=== PATIENT | female | born 1955 | race Caucasian/White ===

== ENCOUNTER 2019-09-04 10:55 | Emergency (ER) | payer MEDICARE, OTHER, SELFPAY ==
[2019-09-04 11:01] VITALS: PULSE 59; RESP 18; TEMP 36.2; O2SAT 100; BMI 44.6
--- NOTE | 2019-09-04 11:06 | DI.RAD.S_ITS ---
PROCEDURE: XR CHEST 1V INDICATIONS: chest pain TECHNIQUE: One view of the chest was acquired. COMPARISON: None. FINDINGS: Surgical changes and devices: None. Lungs and pleura: Lungs are clear. No pleural effusions or pneumothorax. Mediastinum: The cardiac contours are within normal limits. The aorta demonstrates calcification and tortuosity. Bones and chest wall: Age-appropriate bony degenerative changes are seen. No suspicious bony lesions. Overlying soft tissues appear unremarkable. IMPRESSION: Unremarkable portable chest study for age. Dictated by: Lane Cavazos M.D. on 09/04/2019 at 10:51 Approved by: Lane Cavazos M.D. on 09/04/2019 at 10:52
--- NOTE | 2019-09-04 11:34 | PC.NURSE ---
patient arrived amblitory POV to the ED today with a chief complaint of left sided chest pain that she awoke with. She states in gets worse when taking deep breaths. Patient is speaking in short choppy sentences. Provider aware
[2019-09-04 11:36] LABS: Add Manual Diff / Slide Review NO; Basophils Absolute Auto 0 /uL (0-100); Basophils Percent Auto 0.5 % (0-2); Eosinophils Absolute Auto 100 /uL (0-450); Eosinophils Percent Auto 1.1 % (2-4); Hematocrit 40.8 % (36-46); Hemoglobin 13.7 g/dL (12.0-16.0); Lymphocytes Absolute Auto 1600 /uL (1100-4500); Lymphocytes Percent Auto 26.7 % (25-40); Mean Corpuscular HGB Conc 33.6 % (30-36); Mean Corpuscular Hemoglobin 29.8 PG (26-34); Mean Corpuscular Volume 88.7 fL (80-100); Monocytes Absolute Auto 300 /uL (0-900); Monocytes Percent Auto 4.6 % (3-14); Neutrophils Absolute Auto 3900 /uL (1500-7000); Neutrophils Percent Auto 67.1 % (50-75); Platelet Count 189 X10^3/uL (150-400); Red Cell Distribution Width 14.6 % (11.6-14.8); White Blood Cell Count 5.8 X10^3/uL (4.5-11.0)
[2019-09-04 11:42] LABS: Prothrombin Time 11.3 SECONDS (10.1-12.7)
[2019-09-04 11:44] LABS: Alanine Aminotransferase 27 IU/L (<35); Albumin 4.3 g/dL (3.5-5.0); Albumin Globulin Ratio 1.2 (1.0-2.8); Alkaline Phosphatase 84 U/L (38-126); Aspartate Aminotransferase 22 IU/L (14-36); BUN Creatinine Ratio 17.5 (6-22); Bilirubin Total 0.4 mg/dL (0.2-1.3); Blood Urea Nitrogen 14 mg/dL (7-17); Calcium 9.6 mg/dL (8.4-10.2); Carbon Dioxide 27 mmol/L (22-32); Chloride 102 mmol/L (98-107); Creatine Kinase 60 U/L (30-135); Estimated Glomerular Filt Rate > 60.0 mL/min (>60); Globulin 3.5 g/dL (1.7-4.1); Glucose 119 mg/dL (80-110); HEMOLYSIS < 15 (0-50); Lipase 84 U/L (23-300); PTT Partial Thromboplastin Tim 32 SECONDS (26.4-36.2); Potassium 3.2 mmol/L (3.4-5.1); Sodium 140 mmol/L (137-145); Total Protein 7.8 g/dL (6.3-8.2)
[2019-09-04 11:55] LABS: Troponin I < 0.012 ng/mL (0.01-0.034)
[2019-09-04 12:11] LABS: D Dimer 230 ng/mL (<230)
--- NOTE | 2019-09-04 12:29 | ED_ITS ---
HPI - Chest Pain General Chief Complaint: Chest Pain Stated Complaint: LEFT SIDE PAIN WHEN BREATHING Time Seen by Provider: 09/04/19 12:07 Source: patient Mode of arrival: Ambulatory History of Present Illness HPI narrative: CC: Left lower chest pleuritic chest pain. HPI: The patient is a 64-year-old female who presents to the emergency department with left-sided lower chest pain that was pleuritic in nature. Her pain was worse on deep breathing and coughing. She has a past history of having had a pulmonary embolism discovered in [place] . The last time she had chest pain like this she was diagnosed to have a pulmonary embolism. Her chest pain started Thursday morning lying in bed. The pain became worse and was localized on the left chest under her left breast. She states that it feels identical to the pain she experienced in 1989. She denies any fall or injury. She has had no fever chills or sweats. She has had mild congestion but no significant cough. She denies any headache. She has had palpitations and dizziness with sharp chest pain associated with shortness of breath. She has had no significant nausea vomiting or urinary symptoms. The patient states that she has mild COPD but has never had a heart attack congestive heart failure or stroke. She has had a pulmonary embolism and hypertension without diabetes. Related Data Previous Rx's Medication Instructions Recorded hydrocodone-acetaminophen [Palmer] 1 tab PO Q4H PRN #12 tab 09/04/19 levofloxacin [Levaquin] 500 mg PO DAILY #10 tab 09/04/19 naproxen [Naprosyn] 500 mg PO BID PRN #20 tab 09/04/19 Allergies Allergy/AdvReac Type Severity Reaction Status Date / Time cimetidine [CIMETIDINE] Allergy Mild HIVES Verified 09/04/19 11:01 IVP DYE Allergy Unknown SOB AND Uncoded 09/04/19 11:01 SYNCOPY FEELING Review of Systems Review of Systems Narrative: Her review of systems were all negative except for those mentioned in the history of present illness. Exam Narrative Exam Narrative: PHYSICAL EXAM: CONSTITUTIONAL: Awake, Alert, Oriented, Coherent, Cooperative in NAD. Does not appear toxic or ill. She is morbidly obese HEAD: AT/NC EENT: PERRL, FROM of eyes, no discharge, Oral mucosa is moist and pink, posterior pharynx is without erythema or exudate. NECK: Supple, no obvious JVD, Trachea is midline without stridor, no palpable LN or masses. SPINE: No gross deformity, no palpable tenderness of the cervical, thoracic, lumbar or sacral spine. No CVA tenderness. THORAX: No deformity, retractions, there is no crepitus. Her ribs are mildly tender to palpation under her left breast.. LUNGS: Clear with symmetrical breath sounds without respiratory distress HEART: Normal heart tones, regular rhythm and rate without murmur. ABDOMEN: Soft, non-tender, normal bowel sounds without guarding, rebound, rigidity or palpable mass or organomegaly. LYMPHATIC: no palpable lymph nodes EXTREMITIES: No edema, cyanosis, deformity or tenderness. SKIN: No rash, bruising, petechiae or purpura. NEURO: Awake, alert, oriented, conversive, no focal facial asymmetry cranial nerves II-XII are symmetrical and normal, moves all 4 extremities and is ambulatory Initial Vital Signs Initial Vital Signs: Vital Signs Temperature 97.2 F L 09/04/19 11:01 Pulse Rate 59 L 09/04/19 11:01 Respiratory Rate 18 09/04/19 11:01 Pulse Oximetry 100 09/04/19 11:01 Course Course Course Narrative: 1229 the patient has pleuritic chest pain in her left lower chest . She has a history of a pulmonary embolism diagnosed in [place]. She also has a allergy to IVP dye but does not remember what the reaction was. The patient has pleuritic chest pain today with shortness of breath. She is being evaluated for pneumonia, pleurisy and possible put recurrent pulmonary embolism. Her last pulmonary embolism was in 1989. She is not on any anticoagulant at the present time. 1316 : The patient's CT a reveals: 1. no pulmonary embolism 2. A 2.5 x 1.4 x 1.0 cm masslike consolidation in the right upper lobe. Findings may represent a subset mental atelectasis, pneumonia, or neoplastic process. Recommend appropriate therapy for pneumonia and follow-up CT scans in 1 month. 3. Atherosclerosis including dense atherosclerotic calcifications in the coronary vasculature. Orders Ordered: ED Orders 09/04/19 13:27 CT angio chest PE protocol Stat 09/04/19 15:53 Blood Culture Stat Discontinued Medications Atropine Sulfate (Atropine) 0.5 mg IV NOW ONE Stop: 09/04/19 13:00 Last Admin: 09/04/19 17:27 Dose: Not Given Documented by: DEVANTE Diphenhydramine HCl (Benadryl) 50 mg IV NOW ONE Stop: 09/04/19 12:28 Last Admin: 09/04/19 12:44 Dose: 50 mg Documented by: FALGUNI Azithromycin 500 mg/ Dextrose 250 mls @ 250 mls/hr IV NOW ONE Stop: 09/04/19 15:18 Last Infusion: 09/04/19 17:07 Dose: 0 mls/hr Documented by: Admin: 09/04/19 15:57 Dose: 250 mls/hr Documented by: FALGUNI Ceftriaxone Sodium/Dextrose (Rocephin) 2 gm in 50 mls @ 100 mls/hr IV NOW ONE Stop: 09/04/19 15:59 Last Infusion: 09/04/19 18:05 Dose: 0 mls/hr Documented by: Admin: 09/04/19 17:11 Dose: 100 mls/hr Documented by: DEVANTE Ketorolac Tromethamine (Toradol) 30 mg IV NOW ONE Stop: 09/04/19 12:28 Last Admin: 09/04/19 12:44 Dose: 30 mg Documented by: FALGUNI Loratadine (Claritin) 10 mg PO NOW ONE Stop: 09/04/19 12:28 Last Admin: 09/04/19 12:44 Dose: 10 mg Documented by: FALGUNI Methylprednisolone (Solu-Medrol 125 Mg Vial) 125 mg IV NOW ONE Stop: 09/04/19 12:28 Last Admin: 09/04/19 12:44 Dose: 125 mg Documented by: FALGUNI Vital Signs Vital signs: Vital Signs - 8 hr 09/04/19 15:30 09/04/19 16:00 09/04/19 17:13 Pulse Rate 58 L 59 L 68 Respiratory Rate 10 L 22 18 Blood Pressure [Left Arm] 162/74 H 145/85 H 152/67 H Pulse Oximetry 96 93 93 09/04/19 17:46 Pulse Rate 62 Respiratory Rate 16 Blood Pressure [Left Arm] 152/67 H Pulse Oximetry 99 MDM - Chest Pain Medical Records Data Attestation: I reviewed the patient's medical records. Lab Data Attestation: I reviewed the patient's lab results. Result diagrams: 09/04/19 11:25 09/04/19 11:25 Labs: Lab Results 09/04/19 09/04/19 09/04/19 Range/Units 11:25 11:25 11:25 WBC 5.8 (4.5-11.0) X10^3/uL RBC 4.60 (4.0-5.2) X10^6/uL Hgb 13.7 (12.0-16.0) g/dL Hct 40.8 (36-46) % MCV 88.7 (80-100) fL MCH 29.8 (26-34) PG MCHC 33.6 (30-36) % RDW 14.6 (11.6-14.8) % Plt Count 189 (150-400) X10^3/uL Neut % (Auto) 67.1 (50-75) % Lymph % (Auto) 26.7 (25-40) % [place] % (Auto) 4.6 (3-14) % Eos % (Auto) 1.1 L (2-4) % Baso % (Auto) 0.5 (0-2) % Neut # (Auto) 3900 (2733-6140) /uL Lymph # (Auto) 1600 (6583-8471) /uL [place] # (Auto) 300 (0-900) /uL Eos # (Auto) 100 (0-450) /uL Baso # (Auto) 0 (0-100) /uL PT 11.3 (10.1-12.7) SECONDS INR 1.0 (0.9-1.3) APTT 32 (26.4-36.2) SECONDS D-Dimer (<230) ng/mL Sodium 140 (137-145) mmol/L Potassium 3.2 L (3.4-5.1) mmol/L Chloride 102 (98-107) mmol/L Carbon Dioxide 27 (22-32) mmol/L BUN 14 (7-17) mg/dL Creatinine 0.80 (0.52-1.04) mg/dL Estimated GFR > 60.0 (>60) mL/min BUN/Creatinine Ratio 17.5 (6-22) Glucose 119 H (80-110) mg/dL Calcium 9.6 (8.4-10.2) mg/dL Total Bilirubin 0.4 (0.2-1.3) mg/dL AST 22 (14-36) IU/L ALT 27 (<35) IU/L Alkaline Phosphatase 84 (38-126) U/L Total Creatine Kinase 60 (30-135) U/L CK-MB (CK-2) TNP CK-MB (CK-2) Rel Index TNP Troponin I < 0.012 (0.01-0.034) ng/mL Total Protein 7.8 (6.3-8.2) g/dL Albumin 4.3 (3.5-5.0) g/dL Globulin 3.5 (1.7-4.1) g/dL Albumin/Globulin Ratio 1.2 (1.0-2.8) Lipase 84 (23-300) U/L 09/04/19 Range/Units 11:25 WBC (4.5-11.0) X10^3/uL RBC (4.0-5.2) X10^6/uL Hgb (12.0-16.0) g/dL Hct (36-46) % MCV (80-100) fL MCH (26-34) PG MCHC (30-36) % RDW (11.6-14.8) % Plt Count (150-400) X10^3/uL Neut % (Auto) (50-75) % Lymph % (Auto) (25-40) % [place] % (Auto) (3-14) % Eos % (Auto) (2-4) % Baso % (Auto) (0-2) % Neut # (Auto) (7478-5461) /uL Lymph # (Auto) (3982-4015) /uL [place] # (Auto) (0-900) /uL Eos # (Auto) (0-450) /uL Baso # (Auto) (0-100) /uL PT (10.1-12.7) SECONDS INR (0.9-1.3) APTT (26.4-36.2) SECONDS D-Dimer 230 (<230) ng/mL Sodium (137-145) mmol/L Potassium (3.4-5.1) mmol/L Chloride (98-107) mmol/L Carbon Dioxide (22-32) mmol/L BUN (7-17) mg/dL Creatinine (0.52-1.04) mg/dL Estimated GFR (>60) mL/min BUN/Creatinine Ratio (6-22) Glucose (80-110) mg/dL Calcium (8.4-10.2) mg/dL Total Bilirubin (0.2-1.3) mg/dL AST (14-36) IU/L ALT (<35) IU/L Alkaline Phosphatase (38-126) U/L Total Creatine Kinase (30-135) U/L CK-MB (CK-2) CK-MB (CK-2) Rel Index Troponin I (0.01-0.034) ng/mL Total Protein (6.3-8.2) g/dL Albumin (3.5-5.0) g/dL Globulin (1.7-4.1) g/dL Albumin/Globulin Ratio (1.0-2.8) Lipase (23-300) U/L Urine Dip Bedside Urine Glucose Negative Bedside Urine Bilirubin - Negative Bedside Urine Ketone - Negative Urine Specific [place] 1.010 Bedside Urine Occult Blood - Negative Bedside Urine pH 6.0 Bedside Urine Protein - Negative Bedside Urine Urobilinogen - Negative Bedside Urine Nitrite - Negative Bedside Urine Leukocytes - Negative Esterase ECG Data Attestation: I personally reviewed and interpreted this ECG as follows: Interpretation: The patient's EKG obtained on September 04 at 13:0 1:00 a.m. revealed a sinus bradycardia with a ventricular rate of 50. The patient has no acute diagnostic ST or T-wave changes. T-waves are flat in III and upright in V1. There is nothing to suggest an acute ischemic injury. Discharge Plan Departure Patient Disposition: Home Clinical Impression: Pleurisy, Bradycardia Pneumonia Qualifiers: Pneumonia type: due to unspecified organism Laterality: right Lung location: upper lobe of lung Qualified Code(s): J18.9 - Pneumonia, unspecified organism Chest pain Qualifiers: Chest pain type: pleurodynia Qualified Code(s): R07.81 - Pleurodynia Discharge Date/Time: 09/04/19 18:11 Instructions: DI for Pneumonia -- Adult, DI for Pleurisy, DI for Chest Pain Activity Restrictions/Additional Instructions: 1. Return to the emergency department if you develop slow heart rate with dizziness lightheadedness feeling as though you are going to pass out or become faint. 2. If you developed chest tightness dull achy pain and discomfort that feels like a pressure or squeezing that lasts longer than 515-20 minutes, radiates to your neck, jaw, shoulder, or arm return to the emergency department 3. Use Naprosyn 500 mg twice a day for pain and discomfort. For severe pain on relieved by Naprosyn take the Palmer tablets as rescue. 4. Take the Levaquin 500 mg once a day until gone or until you see your doctors in follow-up/your chief digital media officer. 5. If there is any questions or problems at all return to the emergency department and will sorted out in help you. Prescriptions: New naproxen [Naprosyn] 500 mg tablet 500 mg PO BID PRN (Reason: pain) Qty: 20 RF: 0 hydrocodone-acetaminophen [Palmer] 5-325 mg tablet 1 tab PO Q4H PRN (Reason: pain) Qty: 12 RF: 0 levofloxacin [Levaquin] 500 mg tablet 500 mg PO DAILY Qty: 10 RF: 0 Referrals: Nickie Erwin [Primary Care Provider] -
[2019-09-04] MEDS: KETOROLAC 60 MG/2 ML VIAL 30 MG IV (12:44)
[2019-09-04] MEDS: LORATADINE 10 MG TABLET PO (12:44)
[2019-09-04] MEDS: diphenhydrAMINE 50 MG/ML VIAL IV (12:44)
[2019-09-04] MEDS: methylPREDNISolone 125 MG/2 ML VIAL IV (12:44)
[2019-09-04 13:08] VITALS: BP 160/73; PULSE 58; RESP 22; O2SAT 93
--- NOTE | 2019-09-04 13:18 | PC.NURSE ---
patient reports lightheadedness and difficulty focusing on anything when monitor alarming HR in the lower 40s. provider notified. Order for atropine received.
--- NOTE | 2019-09-04 13:27 | DI.CT.S_ITS ---
PROCEDURE: CT ANGIO CHEST PE PROTOCOL INDICATIONS: pleuritic left chest pain, H/O PE TECHNIQUE: After the administration of intravenous contrast, 2 mm thick sections acquired from the pulmonary apices to the posterior costophrenic angles. 3-dimensional maximum intensity projection (MIP) coronal and sagittal reformats were then acquired through the thorax. For radiation dose reduction, the following was used: automated exposure control, adjustment of mA and/or kV according to patient size. COMPARISON: [facility], CR, XR CHEST 1V, 09/04/2019, 11:26. FINDINGS: Image quality: Excellent. Pulmonary arteries: Pulmonary arteries are normal in size, and demonstrate no intraluminal filling defects to suggest central pulmonary embolism. Lungs and pleura: Masslike opacity noted in the right lobe measures 2.5 x 1.4 x 1.0 cm. Atelectasis is noted in the lingula of the left upper lobe. No pleural effusions or pneumothorax. Central and peripheral airways are patent. Mediastinum: Heart size is normal, without pericardial effusion. Atherosclerotic calcifications are noted in the aorta, great vessels and the coronary vasculature. No mediastinal or hilar adenopathy. Thoracic aorta is normal in caliber and enhancement. Esophagus is normal in caliber, without hiatal hernia. Bones and chest wall: No suspicious bony lesions. Ribs and thoracic spine appear intact throughout. Spine degenerative disc disease and facet arthropathy. Thyroid gland is normal. No axillary or supraclavicular adenopathy. Abdomen: The gallbladder is surgically absent. Visualized upper abdominal solid organs appear normal in the early arterial phase of enhancement. IMPRESSION: 1. No pulmonary embolus. 2. 2.5 x 1.4 x 1.0 cm masslike consolidation in the right upper lobe. Finding may represent subsegmental atelectasis, pneumonia or neoplastic process. Recommend appropriate therapy for pneumonia and followup chest CT scan in one month. 3. Atherosclerosis including dense atherosclerotic calcifications in the coronary vasculature. Dictated by: Amira Rashid MD, PhD on 09/04/2019 at 13:52 Approved by: Amira Rashid MD, PhD on 09/04/2019 at 13:58
[2019-09-04 15:30] VITALS: BP 162/74; PULSE 58; RESP 10; O2SAT 96
[2019-09-04] MEDS: AZITHROMYCIN 500 MG in DEXTROSE 5% IN WATER 250 ML IV (15:57)
[2019-09-04 16:00] VITALS: BP 145/85; PULSE 59; RESP 22; O2SAT 93
[2019-09-04] MEDS: CEFTRIAXONE 2 GM/50 ML FROZ.PIGGY IV (17:11)
[2019-09-04 17:13] VITALS: BP 152/67; PULSE 68; RESP 18; O2SAT 93
[2019-09-04 17:46] VITALS: BP 152/67; PULSE 62; RESP 16; O2SAT 99
== END 2019-09-04 18:11 | disposition home or self-care (01) ==
PROVIDERS: Emergency Provider Emergency Medicine; Family Provider Family Medicine; PCP Internal Medicine
DX: R09.1 Pleurisy (principal); R00.1 Bradycardia, unspecified; J18.9 Pneumonia, unspecified organism; R07.81 Pleurodynia; I10 Essential (primary) hypertension
CPT/HCPCS: 36415; 71045; 71275; 80053; 81003; 82550; 83690; 84484; 85025; 85379; 85610; 85730; 87040; 93005; 96365; 96367; 96375; 99284; 99285; J0696; J1200; J1885; J2930

== ENCOUNTER 2019-09-22 09:02 | Emergency (ER) | payer MEDICARE, OTHER, SELFPAY ==
[2019-09-22 09:10] VITALS: BP 161/76; PULSE 73; RESP 20; TEMP 36.8; O2SAT 96; BMI 44.6
--- NOTE | 2019-09-22 09:19 | ED_ITS ---
HPI - General Adult General Chief complaint: Nausea/Vomiting/Diarrhea Stated complaint: throwing up/diarrhea 4 days Time Seen by Provider: 09/22/19 09:09 Source: patient Mode of arrival: Ambulatory Limitations: no limitations History of Present Illness HPI narrative: 64-year-old female here for evaluation of 4 days of nausea vomiting and diarrhea. Patient states that several weeks ago she finished a course of Levaquin for pleurisy/pneumonia. No recent travel. Has abdominal pain around the time that she is having diarrhea. Has not tried anything for symptoms prior to arrival. No other sick contacts. No fevers. Was sent to the emergency department by her primary doctor due to the inability to tolerate oral intake. Related Data Home Medications Medication Instructions Recorded Confirmed aspirin 81 mg PO DAILY 09/22/19 09/22/19 atorvastatin 40 mg PO DAILY 09/22/19 09/22/19 colestipol 1 g PO BID 09/22/19 09/22/19 diclofenac sodium 1 % TOPICAL DIRECTED 09/22/19 09/22/19 fluticasone propion-salmeterol 1 inh INHALATION BID 09/22/19 09/22/19 [Advair HFA] hydrochlorothiazide 25 mg PO DAILY 09/22/19 09/22/19 losartan 100 mg PO DAILY 09/22/19 09/22/19 pantoprazole 40 mg PO BID 09/22/19 09/22/19 potassium chloride 20 meq PO BID 09/22/19 09/22/19 ropinirole 4 mg PO DAILY 09/22/19 09/22/19 sertraline 200 mg PO DAILY 09/22/19 09/22/19 Previous Rx's Medication Instructions Recorded metoclopramide HCl [Reglan] 10 mg PO Q6H PRN #10 tab 09/22/19 ondansetron 4 mg PO Q6H PRN #14 tab 09/22/19 Allergies Allergy/AdvReac Type Severity Reaction Status Date / Time cimetidine [CIMETIDINE] Allergy Mild HIVES Verified 09/22/19 09:17 IVP DYE Allergy Unknown SOB AND Uncoded 09/04/19 11:01 SYNCOPY FEELING Review of Systems Constitutional Constitutional: Denies fever(s) Cardiovascular Cardiovascular: Denies chest pain and Denies dyspnea Respiratory Respiratory: Denies dyspnea Gastrointestinal Gastrointestinal: Reports abdominal pain, Reports diarrhea, Reports nausea and Reports vomiting Musculoskeletal Musculoskeletal: Denies arthralgias Integumentary/Breasts Skin/Breast: Denies rash Hematologic/Lymphatic Hematologic/Lymphatic: Denies easy bleeding and Denies easy bruising Patient History Medical History Healthy adult (Acute) Social History Smoking Status: Unknown if ever smoked Exam Initial Vital Signs Initial Vital Signs: Vital Signs Temperature 98.3 F 09/22/19 09:10 Pulse Rate 73 09/22/19 09:10 Respiratory Rate 20 09/22/19 09:10 Blood Pressure 161/76 H 09/22/19 09:10 Pulse Oximetry 96 09/22/19 09:10 Const General: cooperative and comfortable Limitations: mental status not altered Resp Effort & Inspection: normal respiratory effort Auscultation: clear to auscultation bilaterally Cardio Rate: regular rate GI Inspection: non-distended Palpation: soft, No firm and No tender Skin Lesions: no lesions Rashes: no rashes Neuro General: alert, awake and oriented x3 Cognition: normal cognition Speech: speech normal Extrem General: normal to inspection and capillary refill normal Psych Appearance: grossly normal and well kempt Course Orders Ordered: ED Orders 09/22/19 10:54 Comprehensive Metabolic Panel Stat Lipase Stat Discontinued Medications Sodium Chloride (Normal Saline 0.9%) 1,000 mls @ 1,000 mls/hr IV BOLUS ONE Stop: 09/22/19 10:08 Last Infusion: 09/22/19 11:58 Dose: 0 mls/hr Documented by: Admin: 09/22/19 09:51 Dose: 1,000 mls/hr Documented by: TERRY Potassium Chloride 20 meq/ (Sodium Chloride) 260 mls @ 130 mls/hr IV NOW ONE Stop: 09/22/19 13:32 Last Infusion: 09/22/19 15:06 Dose: 0 mls/hr Documented by: CHADWICK Cosigned by: TERRY Admin: 09/22/19 12:31 Dose: 130 mls/hr Documented by: CHADWICK Cosigned by: TERRY Metoclopramide HCl (Reglan) 10 mg IV NOW ONE Stop: 09/22/19 11:36 Last Admin: 09/22/19 11:44 Dose: 10 mg Documented by: CHADWICK Ondansetron HCl (Zofran) 4 mg IV NOW ONE Stop: 09/22/19 09:10 Last Admin: 09/22/19 09:51 Dose: 4 mg Documented by: TERRY Potassium Chloride (Potassium Chloride) 40 meq PO NOW ONE Stop: 09/22/19 11:33 Last Admin: 09/22/19 11:44 Dose: 40 meq Documented by: CHADWICK Vital Signs Vital signs: Vital Signs - 8 hr 09/22/19 12:00 09/22/19 13:40 09/22/19 15:54 Pulse Rate 71 66 65 Respiratory Rate 18 22 16 Blood Pressure [Left Arm] 163/75 H 154/70 H Pulse Oximetry 99 93 95 Medical Decision Making Medical Records Medical records reviewed: Yes I reviewed the patient's medical records. Lab Data Lab results reviewed: Yes I reviewed the patient's lab results. Result diagrams: 09/22/19 09:43 09/22/19 10:54 Labs: Lab Results 09/22/19 09/22/19 09/22/19 Range/Units 09:22 09:22 09:43 WBC 8.8 (4.5-11.0) X10^3/uL RBC 4.93 (4.0-5.2) X10^6/uL Hgb 14.8 (12.0-16.0) g/dL Hct 42.8 (36-46) % MCV 86.7 (80-100) fL MCH 30.0 (26-34) PG MCHC 34.6 (30-36) % RDW 15.1 H (11.6-14.8) % Plt Count 245 (150-400) X10^3/uL Neut % (Auto) 77.6 H (50-75) % Lymph % (Auto) 15.4 L (25-40) % [place] % (Auto) 6.2 (3-14) % Eos % (Auto) 0.4 L (2-4) % Baso % (Auto) 0.4 (0-2) % Neut # (Auto) 6800 (6139-7119) /uL Lymph # (Auto) 1300 (1571-6645) /uL [place] # (Auto) 500 (0-900) /uL Eos # (Auto) 0 (0-450) /uL Baso # (Auto) 0 (0-100) /uL Sodium (137-145) mmol/L Potassium (3.4-5.1) mmol/L Chloride (98-107) mmol/L Carbon Dioxide (22-32) mmol/L BUN (7-17) mg/dL Creatinine (0.52-1.04) mg/dL Estimated GFR (>60) mL/min BUN/Creatinine Ratio (6-22) Glucose (80-110) mg/dL Calcium (8.4-10.2) mg/dL Total Bilirubin (0.2-1.3) mg/dL AST (14-36) IU/L ALT (<35) IU/L Alkaline Phosphatase (38-126) U/L Total Protein (6.3-8.2) g/dL Albumin (3.5-5.0) g/dL Globulin (1.7-4.1) g/dL Albumin/Globulin Ratio (1.0-2.8) Lipase (23-300) U/L Urine RBC None seen (0-5/HPF) Urine WBC 1-5/hpf (0-5/HPF) Ur Squamous Epith Cells 10-30 /hpf H (0-5/HPF) Ur Renal Epithelial Cell 0-1/hpf (0-1/HPF) Urine Bacteria Few (2-10) H (None) Urine Mucus 2+ H (Negative) Ur Culture Indicated? Culture not indicate Micro UA Comment Stl C. cayetanensis PCR Not detected (Not Detect) Stool Rotavirus (PCR) Not detected (Not Detect) Stool Adenovirus (PCR) Not detected (Not Detect) Stool Astrovirus (PCR) Not detected (Not Detect) Stool Cryptosporidium PCR Not detected (Not Detect) Stl E.coli Shiga Tox PCR Not detected (Not Detect) St Sh/Enteroin Ecoli PCR Not detected (Not Detect) Stool E coli O157 PCR Not detected (Not Detect) Stl Enterotoxigenic E PCR Not detected (Not Detect) Stool EPEC (PCR) Detected H (Not Detect) Stl E. histolytica PCR Not detected (Not Detect) Stool Giardia Lamblia PCR Not detected (Not Detect) Stool Sapovirus (PCR) Not detected (Not Detect) Stl P. shigelloides PCR Not detected (Not Detect) St Y.enterocolitica PCR Not detected (Not Detect) Stool Vibrio (PCR) Not detected (Not Detect) Stl Vibrio cholerae PCR Not detected (Not Detect) Stl Enteroaggr Ecoli PCR Not detected (Not Detect) Stl Norovirus GI/GII PCR Not detected (Not Detect) Campylobacter (PCR) Not detected (Not Detect) C. difficile Tox (PCR) Not detected (Not Detect) Salmonella (PCR) Not detected (Not Detect) 09/22/19 Range/Units 10:54 WBC (4.5-11.0) X10^3/uL RBC (4.0-5.2) X10^6/uL Hgb (12.0-16.0) g/dL Hct (36-46) % MCV (80-100) fL MCH (26-34) PG MCHC (30-36) % RDW (11.6-14.8) % Plt Count (150-400) X10^3/uL Neut % (Auto) (50-75) % Lymph % (Auto) (25-40) % [place] % (Auto) (3-14) % Eos % (Auto) (2-4) % Baso % (Auto) (0-2) % Neut # (Auto) (7504-7078) /uL Lymph # (Auto) (8851-3758) /uL [place] # (Auto) (0-900) /uL Eos # (Auto) (0-450) /uL Baso # (Auto) (0-100) /uL Sodium 142 (137-145) mmol/L Potassium 2.5 L* (3.4-5.1) mmol/L Chloride 101 (98-107) mmol/L Carbon Dioxide 28 (22-32) mmol/L BUN 13 (7-17) mg/dL Creatinine 0.90 (0.52-1.04) mg/dL Estimated GFR > 60.0 (>60) mL/min BUN/Creatinine Ratio 14.4 (6-22) Glucose 113 H (80-110) mg/dL Calcium 9.0 (8.4-10.2) mg/dL Total Bilirubin 0.6 (0.2-1.3) mg/dL AST 52 H (14-36) IU/L ALT 66 H (<35) IU/L Alkaline Phosphatase 87 (38-126) U/L Total Protein 8.2 (6.3-8.2) g/dL Albumin 4.7 (3.5-5.0) g/dL Globulin 3.5 (1.7-4.1) g/dL Albumin/Globulin Ratio 1.3 (1.0-2.8) Lipase 51 (23-300) U/L Urine RBC (0-5/HPF) Urine WBC (0-5/HPF) Ur Squamous Epith Cells (0-5/HPF) Ur Renal Epithelial Cell (0-1/HPF) Urine Bacteria (None) Urine Mucus (Negative) Ur Culture Indicated? Micro UA Comment Stl C. cayetanensis PCR (Not Detect) Stool Rotavirus (PCR) (Not Detect) Stool Adenovirus (PCR) (Not Detect) Stool Astrovirus (PCR) (Not Detect) Stool Cryptosporidium PCR (Not Detect) Stl E.coli Shiga Tox PCR (Not Detect) St Sh/Enteroin Ecoli PCR (Not Detect) Stool E coli O157 PCR (Not Detect) Stl Enterotoxigenic E PCR (Not Detect) Stool EPEC (PCR) (Not Detect) Stl E. histolytica PCR (Not Detect) Stool Giardia Lamblia PCR (Not Detect) Stool Sapovirus (PCR) (Not Detect) Stl P. shigelloides PCR (Not Detect) St Y.enterocolitica PCR (Not Detect) Stool Vibrio (PCR) (Not Detect) Stl Vibrio cholerae PCR (Not Detect) Stl Enteroaggr Ecoli PCR (Not Detect) Stl Norovirus GI/GII PCR (Not Detect) Campylobacter (PCR) (Not Detect) C. difficile Tox (PCR) (Not Detect) Salmonella (PCR) (Not Detect) Urine Dip Bedside Urine Glucose Negative Bedside Urine Bilirubin + 1 Bedside Urine Ketone +/- 5 Urine Specific [place] 1.020 Bedside Urine Occult Blood - Negative Bedside Urine pH 6.0 Bedside Urine Protein +++ 300 Bedside Urine Urobilinogen - Negative Bedside Urine Nitrite - Negative Bedside Urine Leukocytes +/- 15 Esterase Point of care testing: Urine Dip Bedside Urine Glucose Negative Bedside Urine Bilirubin + 1 Bedside Urine Ketone +/- 5 Urine Specific [place] 1.020 Bedside Urine Occult Blood - Negative Bedside Urine pH 6.0 Bedside Urine Protein +++ 300 Bedside Urine Urobilinogen - Negative Bedside Urine Nitrite - Negative Bedside Urine Leukocytes +/- 15 Esterase [facility] Narrative Medical decision making narrative: Nontoxic appearing. Did not vomit while she was in the ER. Was still complaining of nausea for which she was treated. Potassium was low. This was repleted. She does have potassium at home that she takes on a daily basis she has not taken it for the past couple days because of all the nausea and vomiting. Does have E coli in her stool. Will hold on any antibiotics. Send home with nausea medicine discussed return precautions and follow-up instructions. She expressed understanding and agreement. Discharge Plan Departure Patient Disposition: Home Clinical Impression: Hypokalemia Nausea and vomiting Qualifiers: Vomiting type: unspecified Vomiting Intractability: unspecified Qualified Code(s): R11.2 - Nausea with vomiting, unspecified Diarrhea Qualifiers: Diarrhea type: infectious Qualified Code(s): A09 - Infectious gastroenteritis and colitis, unspecified Discharge Date/Time: 09/22/19 16:03 Instructions: DI for Nausea -- Adult, DI for Vomiting -- Adult Activity Restrictions/Additional Instructions: Recommend that you continue all of your medications as directed. Use the nausea medications as directed. Contact your primary provider for follow-up. Return to the emergency department for any new or worsening symptoms. Your prescriptions were electronically transmitted to [facility]. Prescriptions: New ondansetron 4 mg tablet,disintegrating 4 mg PO Q6H PRN (Reason: nausea and vomiting) Qty: 14 RF: 0 metoclopramide HCl [Reglan] 10 mg tablet 10 mg PO Q6H PRN (Reason: nausea and vomiting) Qty: 10 RF: 0 No Action atorvastatin 40 mg tablet 40 mg PO DAILY RF: 0 ropinirole 1 mg tablet 4 mg PO DAILY RF: 0 sertraline 100 mg tablet 200 mg PO DAILY RF: 0 aspirin 81 mg tablet,delayed release (DR/EC) 81 mg PO DAILY RF: 0 potassium chloride 20 mEq tablet,ER particles/crystals 20 meq PO BID RF: 0 pantoprazole 40 mg tablet,delayed release (DR/EC) 40 mg PO BID RF: 0 hydrochlorothiazide 25 mg tablet 25 mg PO DAILY RF: 0 losartan 100 mg tablet 100 mg PO DAILY RF: 0 colestipol 1 gram tablet 1 g PO BID RF: 0 Advair HFA 230-21 mcg/actuation HFA aerosol inhaler 1 inh INHALATION BID RF: 0 diclofenac sodium 1 % gel 1 % TOPICAL DIRECTED RF: 0 Referrals: Nickie Erwin [Primary Care Provider] -
[2019-09-22] MEDS: ONDANSETRON 4 MG/2 ML INJ IV (09:51)
[2019-09-22] MEDS: SODIUM CHLORIDE 0.9% 1,000 ML 1000 ML IV (09:51)
[2019-09-22 10:26] LABS: Add Manual Diff / Slide Review NO; Basophils Absolute Auto 0 /uL (0-100); Basophils Percent Auto 0.4 % (0-2); Eosinophils Absolute Auto 0 /uL (0-450); Eosinophils Percent Auto 0.4 % (2-4); Hematocrit 42.8 % (36-46); Hemoglobin 14.8 g/dL (12.0-16.0); Lymphocytes Absolute Auto 1300 /uL (1100-4500); Lymphocytes Percent Auto 15.4 % (25-40); Mean Corpuscular HGB Conc 34.6 % (30-36); Mean Corpuscular Volume 86.7 fL (80-100); Monocytes Absolute Auto 500 /uL (0-900); Monocytes Percent Auto 6.2 % (3-14); Neutrophils Absolute Auto 6800 /uL (1500-7000); Neutrophils Percent Auto 77.6 % (50-75); Platelet Count 245 X10^3/uL (150-400); Red Blood Cell Count 4.93 X10^6/uL (4.0-5.2); Red Cell Distribution Width 15.1 % (11.6-14.8); White Blood Cell Count 8.8 X10^3/uL (4.5-11.0)
[2019-09-22 10:52] LABS: Campylobacter Not Detected (Not Detect); Clostridium difficile toxin AB Not Detected (Not Detect); Enteroaggregative E.coli Not Detected (Not Detect); Enteropathogenic E.coli Detected (Not Detect); Plesiomonsa shigelloides Not Detected (Not Detect); Salmonella Not Detected (Not Detect); Vibrio Not Detected (Not Detect); Vibrio cholerae Not Detected (Not Detect); Yersinia enterocolitica Not Detected (Not Detect)
[2019-09-22 10:53] LABS: Adenovirus F 40/41 Not Detected (Not Detect); Astrovirus Not Detected (Not Detect); Cryptosporidium Not Detected (Not Detect); Cyclospora cayetanensis Not Detected (Not Detect); Entamoeba histolytica Not Detected (Not Detect); Enterotoxigenic E.coli It/st Not Detected (Not Detect); Giardia lamblia Not Detected (Not Detect); Norovirus GI/GII Not Detected (Not Detect); Rotavirus A Not Detected (Not Detect); Sapovirus Not Detected (Not Detect); Shiga-like toxin-prod E.coli Not Detected (Not Detect); Shigella/Enteroinvasive E.coli Not Detected (Not Detect)
[2019-09-22 11:25] LABS: Alanine Aminotransferase 66 IU/L (<35); Albumin 4.7 g/dL (3.5-5.0); Albumin Globulin Ratio 1.3 (1.0-2.8); Alkaline Phosphatase 87 U/L (38-126); Aspartate Aminotransferase 52 IU/L (14-36); BUN Creatinine Ratio 14.4 (6-22); Bilirubin Total 0.6 mg/dL (0.2-1.3); Blood Urea Nitrogen 13 mg/dL (7-17); Carbon Dioxide 28 mmol/L (22-32); Chloride 101 mmol/L (98-107); Estimated Glomerular Filt Rate > 60.0 mL/min (>60); Globulin 3.5 g/dL (1.7-4.1); Glucose 113 mg/dL (80-110); HEMOLYSIS < 15 (0-50); Lipase 51 U/L (23-300); Sodium 142 mmol/L (137-145); Total Protein 8.2 g/dL (6.3-8.2)
[2019-09-22 11:27] LABS: Potassium 2.5 mmol/L (3.4-5.1)
[2019-09-22] MEDS: METOCLOPRAMIDE 10 MG/2 ML INJ IV (11:44)
[2019-09-22] MEDS: POTASSIUM CHLORIDE 20 MEQ/15 ML UDC 40 MEQ PO (11:44)
[2019-09-22 12:00] VITALS: BP 163/75; PULSE 71; RESP 18; O2SAT 99
[2019-09-22 12:06] LABS: RBC Urine None Seen (0-5/HPF)
[2019-09-22 12:19] LABS: Renal Epithelial Cells Urine 0-1/HPF (0-1/HPF); Squamous Epithelial Cell Urine 10-30 /HPF (0-5/HPF); WBC Urine 1-5/HPF (0-5/HPF)
[2019-09-22 12:20] LABS: Bacteria Urine Few (2-10); Mucus Urine 2+ (Negative)
[2019-09-22] MEDS: POTASSIUM CHLORIDE 20 MEQ in SODIUM CHLORIDE 0.9% 250 ML 130 ML IV (12:31)
[2019-09-22 13:40] VITALS: PULSE 66; RESP 22; O2SAT 93
[2019-09-22 15:54] VITALS: BP 154/70; PULSE 65; RESP 16; O2SAT 95
== END 2019-09-22 16:03 | disposition home or self-care (01) ==
PROVIDERS: Emergency Provider Emergency Medicine; Family Provider Family Medicine; PCP Internal Medicine
DX: E87.6 Hypokalemia (principal); R11.2 Nausea with vomiting, unspecified; A09 Infectious gastroenteritis and colitis, unspecified
CPT/HCPCS: 36415; 80053; 81003; 81015; 83690; 85025; 87507; 96361; 96365; 96366; 96375; 99284; J2405; J2765; J3480

== ENCOUNTER → 2020-09-22 12:28 | Outpatient (CLI) | payer MEDICARE, OTHER, SELFPAY ==
--- NOTE | 2020-09-22 | DI.MRI.S_ITS ---
PROCEDURE: MR LUMBAR SPINE WO CON INDICATIONS: Low back pain TECHNIQUE: Noncontrast sagittal T1 spin echo and T2 fast echo, sagittal STIR, axial T1 and T2 fast spin echo through the lumbar spine. In cases with scoliosis, additional coronal T2 fast spin echo may be performed. COMPARISON: [facility], MR, L-SPINE WITHOUT CONTRAST, 02/02/2007, 15:08. FINDINGS: Image quality: Excellent. Alignment and Curvature: There is normal bony alignment. Bone Marrow: Marrow is of normal overall signal. No acute vertebral body compression fractures. Spinal Cord: Conus medullaris terminates at the L1-L2 level. Visualized cord demonstrates normal signal and size. Paraspinous Soft Tissues: No paravertebral masses. T12-L1: No canal stenosis or foraminal stenosis. L1-L2: No canal stenosis or foraminal stenosis. L2-L3: No canal stenosis or foraminal stenosis. L3-L4: Mild posterior disc bulge and right foraminal disc bulge. Mild facet hypertrophy. No canal stenosis. Mild bilateral foraminal narrowing. L4-L5: Interval development of a left posterior lateral disc bulge. Mild facet joint hypertrophy. No canal stenosis. [id number] left foraminal narrowing with mild flattening deformity on the exiting left L4 nerve root. L5-S1: Mild disc bulge. Facet hypertrophy. No canal stenosis or significant foraminal stenosis. IMPRESSION: 1. Multilevel disc bulges. 2. No canal stenosis. 3. Mild multilevel facet arthropathy. 4. There is [id number] left foraminal narrowing at L4-L5. Dictated by: Ramon Aparicio M.D. on 09/23/2020 at 10:22 Approved by: Ramon Aparicio M.D. on 09/23/2020 at 10:30
== END ==
PROVIDERS: Family Provider Family Medicine; PCP Internal Medicine; Referring Provider Nurse Practitioner Family; Visit Provider Nurse Practitioner Family
DX: M47.816 Spondylosis without myelopathy or radiculopathy, lumbar region (principal); M47.817 Spondylosis without myelopathy or radiculopathy, lumbosacral region; M51.26 Other intervertebral disc displacement, lumbar region; M51.27 Other intervertebral disc displacement, lumbosacral region; M48.061 Spinal stenosis, lumbar region without neurogenic claudication
CPT/HCPCS: 72148

== ENCOUNTER 2021-04-25 14:55 | Emergency (ER) | payer MEDICARE, OTHER, SELFPAY ==
[2021-04-25] VITALS (15 sets, daily range): BP systolic 157–198; BP diastolic 71–94; PULSE 52–78; RESP 17–18; TEMP 36.7; O2SAT 87–98; BMI 44.6
--- NOTE | 2021-04-25 15:27 | DI.CT.S_ITS ---
PROCEDURE: CT ABDOMEN PELVIS W CON INDICATIONS: RUQ pain, swallowed chicken bone 04/22. ? abdominal perforati TECHNIQUE: After the administration of intravenous contrast, axial sections acquired from the lung bases to the pubic symphysis. Coronal and sagittal reformats were performed. For radiation dose reduction, the following was used: automated exposure control, adjustment of mA and/or kV according to patient size. COMPARISON: [facility], CT, ABDOMEN/PELVIS WITH CONTRAST, 03/09/2015, 12:14. FINDINGS: Image quality: Excellent. Lung bases: Unremarkable. Heart: No significant findings. ABDOMEN: Liver: Unremarkable. Gallbladder: Surgically absent Biliary ducts: Unremarkable. Pancreas: Unremarkable. Spleen: Unremarkable. Adrenal Glands: Unremarkable. Kidneys and Ureters: Unremarkable. Stomach and Bowel: Stomach, small bowel loops, and colon are unremarkable. Peritoneum: No abnormal intraperitoneal fluid. No free air. Ventral Wall: No hernias. Abdominal Nodes: No retroperitoneal or mesenteric adenopathy by size criteria. Vessels: Aorta and inferior vena cava are normal in size. Circumferential abdominal aortic calcifications. PELVIS: Pelvic Organs: Uterus is surgically absent. Bladder: Unremarkable. Pelvic Nodes: No enlarged lymph nodes. Miscellaneous: No hernias are seen. Bones: Unremarkable. IMPRESSION: 1. No evidence of acute abdominal process. 2. Remote cholecystectomy and hysterectomy. Dictated by: Ramon Aparicio M.D. on 04/25/2021 at 17:29 Approved by: Ramon Aparicio M.D. on 04/25/2021 at 17:32
[2021-04-25] MEDS: HYDROMORPHONE 0.5 MG INJ IV (15:56)
[2021-04-25] MEDS: ONDANSETRON 4 MG/2 ML INJ IV (15:56)
[2021-04-25 16:19] LABS: Add Manual Diff / Slide Review NO; Basophils Absolute Auto 0 /uL (0-100); Basophils Percent Auto 0.4 % (0-2); Eosinophils Absolute Auto 100 /uL (0-450); Eosinophils Percent Auto 0.9 % (2-4); Hematocrit 42.4 % (36-46); Hemoglobin 14.1 g/dL (12.0-16.0); Lymphocytes Absolute Auto 1900 /uL (1100-4500); Lymphocytes Percent Auto 21.9 % (25-40); Mean Corpuscular HGB Conc 33.2 % (30-36); Mean Corpuscular Hemoglobin 29.5 PG (26-34); Monocytes Absolute Auto 600 /uL (0-900); Monocytes Percent Auto 6.6 % (3-14); Neutrophils Absolute Auto 6000 /uL (1500-7000); Neutrophils Percent Auto 70.2 % (50-75); Platelet Count 220 X10^3/uL (150-400); Red Blood Cell Count 4.76 X10^6/uL (4.0-5.2); Red Cell Distribution Width 14.8 % (11.6-14.8); White Blood Cell Count 8.6 X10^3/uL (4.5-11.0)
[2021-04-25 16:39] LABS: Alanine Aminotransferase 31 IU/L (<35); Albumin 4.5 g/dL (3.5-5.0); Albumin Globulin Ratio 1.3 (1.0-2.8); Alkaline Phosphatase 81 U/L (38-126); Aspartate Aminotransferase 25 IU/L (14-36); BUN Creatinine Ratio 16.2 (6-22); Bilirubin Total 0.4 mg/dL (0.2-1.3); Blood Urea Nitrogen 12 mg/dL (7-17); Calcium 9.4 mg/dL (8.4-10.2); Carbon Dioxide 33 mmol/L (22-32); Chloride 102 mmol/L (98-107); Estimated Glomerular Filt Rate > 60.0 mL/min (>60); Globulin 3.4 g/dL (1.7-4.1); Glucose 104 mg/dL (80-110); HEMOLYSIS 16 (0-50); Lipase 98 U/L (23-300); Potassium 3.1 mmol/L (3.4-5.1); Sodium 141 mmol/L (137-145); Total Protein 7.9 g/dL (6.3-8.2)
--- NOTE | 2021-04-25 17:00 | ED.GENADULT ---
HPI - General Adult <Kandis Enriquez MD - Last Filed: 05/02/21 07:21> General Chief complaint: Abdominal Pain Stated complaint: rt sided abd pain Time Seen by Provider: 04/25/21 15:25 Source: patient Mode of arrival: Wheelchair History of Present Illness HPI narrative: 66-year-old woman with a history of hypertension, asthma, restless leg syndrome, depression, reflux, hyperlipidemia presents with right upper quadrant pain increasing for the last 3 days. She notes that she swallowed a chicken bone on Thursday night felt that go down and had some mild pain with that but has been doing relatively well after that. Today the right upper quadrant pain has become increasingly intense to the point where she is in severe pain. She describes no vomiting or blood in her stools. She has had her gallbladder taken out and does not describe this as pain similar to that. She does note that it radiates through to her back. There is nothing that she does that alleviates the pain and any type of movement seems to make it worse. She denies fever, cough, chills, headache, acute neurologic findings. Related Data Home Medications Medication Instructions Recorded Confirmed aspirin 81 mg tablet,delayed 81 mg PO DAILY 09/22/19 09/22/19 release atorvastatin 40 mg tablet 40 mg PO DAILY 09/22/19 09/22/19 colestipol 1 gram tablet 1 g PO BID 09/22/19 09/22/19 diclofenac sodium 1 % topical gel 1 % TOPICAL DIRECTED 09/22/19 09/22/19 fluticasone propionate 230 1 inh INHALATION BID 09/22/19 09/22/19 mcg-salmeterol 21 mcg/actuation HFA inhaler (Advair HFA) hydrochlorothiazide 25 mg tablet 25 mg PO DAILY 09/22/19 09/22/19 losartan 100 mg tablet 100 mg PO DAILY 09/22/19 09/22/19 pantoprazole 40 mg tablet,delayed 40 mg PO BID 09/22/19 09/22/19 release potassium chloride 20 mEq 20 meq PO BID 09/22/19 09/22/19 tablet,extended release(part/cryst) ropinirole 1 mg tablet 4 mg PO DAILY 09/22/19 09/22/19 sertraline 100 mg tablet 200 mg PO DAILY 09/22/19 09/22/19 Previous Rx's Medication Instructions Recorded metoclopramide HCl 10 mg tablet 10 mg PO Q6H PRN #10 tab 09/22/19 (Reglan) ondansetron 4 mg disintegrating 4 mg PO Q6H PRN #14 tab 09/22/19 tablet hydrocodone 5 mg-acetaminophen 325 1 tab PO BEDTIME PRN #10 tab 04/25/21 mg tablet Allergies Allergy/AdvReac Type Severity Reaction Status Date / Time cimetidine [CIMETIDINE] Allergy Mild HIVES Verified 04/25/21 15:19 IVP DYE Allergy Unknown SOB AND Uncoded 04/25/21 15:19 SYNCOPY FEELING Review of Systems <Kandis Enriquez MD - Last Filed: 05/02/21 07:21> Review of Systems Narrative: Remainder of complete review of systems is otherwise unremarkable except for that included in the HPI. Patient History <Kandis Enriquez MD - Last Filed: 05/02/21 07:21> Medical History Asthma Hyperlipidemia Hypertension Restless leg syndrome Surgical History Status post cholecystectomy Social History Smoking Status: Unknown if ever smoked Smoking Status: Unknown if ever smoked alcohol intake frequency: holidays/special occasions only Substance Use Type: does not use Exam <Kandis Enriquez MD - Last Filed: 05/02/21 07:21> Narrative Exam Narrative: General: Healthy appearing, in no acute distress. Able to give a complete and coherent history. Well-nourished well-developed HEENT: Moist mucous membranes, normal sclera with reactive pupils, Respiratory: Lungs are clear to auscultation, no wheezing no rales no rhonchi. Full and symmetrical air movement Cardiac: Mild tachycardia but otherwise Regular rate and rhythm no murmurs no bruits Abdomen: Soft, significantly tender in the right upper quadrant with palpation anywhere to the remainder of the abdomen causing right upper quadrant tenderness. no flank pain Skin: Warm and dry, no rashes Neurologic: Grossly neurologically intact with no obvious asymmetries or abnormalities Extremities: No trauma, well perfused Psych: Cooperative, appropriate insight and affect Initial Vital Signs Initial Vital Signs: Vital Signs Temperature 98.0 F 04/25/21 15:12 Pulse Rate 66 04/25/21 15:12 Respiratory Rate 18 04/25/21 15:12 Blood Pressure 198/94 H 04/25/21 15:12 Pulse Oximetry 95 04/25/21 15:12 <Blaise Hoyos DO - Last Filed: 04/26/21 06:24> Initial Vital Signs Initial Vital Signs: Vital Signs Temperature 98.0 F 04/25/21 15:12 Pulse Rate 66 04/25/21 15:12 Respiratory Rate 18 04/25/21 15:12 Blood Pressure 198/94 H 04/25/21 15:12 Pulse Oximetry 95 04/25/21 15:12 Course <Kandis Enriquez MD - Last Filed: 05/02/21 07:21> Course Course Narrative: CT scan of the abdomen is ordered with concerns for complications from the swallowed chicken bone 3 days ago. She states that she has an iodine allergy so oral contrast was started and then she notes that she was premedicated with Benadryl and Solu-Medrol for the fairly recent CT and had no issues. Will go ahead and premedicate with Benadryl and Solu-Medrol and add IV contrast to the skin as well. Orders Ordered: Discontinued Medications Diphenhydramine HCl (Diphenhydramine 50 Mg/Ml Vial) 25 mg IV NOW ONE Stop: 04/25/21 17:01 Last Admin: 04/25/21 17:04 Dose: 25 mg Documented by: ATAYLOR Hydromorphone HCl (Hydromorphone 0.5 Mg Inj) 0.5 mg IV Q15MIN PRN PRN Reason: Pain, Last Admin: 04/25/21 15:56 Dose: 0.5 mg Documented by: KBROTEM Ketorolac Tromethamine (Ketorolac 30 Mg/Ml Vial) 15 mg IV NOW ONE Stop: 04/25/21 19:13 Last Admin: 04/25/21 19:34 Dose: 15 mg Documented by: Methylprednisolone (Methylprednisolone 125 Mg/2 Ml Vial) 125 mg IV NOW ONE Stop: 04/25/21 17:01 Last Admin: 04/25/21 17:04 Dose: 125 mg Documented by: ATAYLOR Ondansetron HCl (Ondansetron 4 Mg/2 Ml Inj) 4 mg IV NOW ONE Stop: 04/25/21 15:27 Last Admin: 04/25/21 15:56 Dose: 4 mg Documented by: TERRY Ondansetron HCl (Ondansetron 4 Mg Odt) 4 mg SL NOW ONE Stop: 04/25/21 15:46 Last Admin: 04/25/21 17:10 Dose: Not Given Documented by: MAHNAZ Oxycodone/Acetaminophen (Oxycodone/Apap 5/325 Prepack) 1 bottle MISC SEEINSTR ONE Stop: 04/25/21 19:18 Last Admin: 04/25/21 19:34 Dose: 1 bottle Documented by: Vital Signs Vital signs: Vital Signs - 8 hr 04/25/21 15:12 04/25/21 16:06 04/25/21 16:30 Temperature 98.0 F Pulse Rate 66 58 L 53 L Respiratory Rate 18 17 18 Blood Pressure 198/94 H 157/71 H 170/79 H Pulse Oximetry 95 93 95 <Blaise Hoyos DO - Last Filed: 04/26/21 06:24> Orders Ordered: Discontinued Medications Diphenhydramine HCl (Diphenhydramine 50 Mg/Ml Vial) 25 mg IV NOW ONE Stop: 04/25/21 17:01 Last Admin: 04/25/21 17:04 Dose: 25 mg Documented by: MAHNAZ Hydromorphone HCl (Hydromorphone 0.5 Mg Inj) 0.5 mg IV Q15MIN PRN PRN Reason: Pain, Last Admin: 04/25/21 15:56 Dose: 0.5 mg Documented by: TERRY Ketorolac Tromethamine (Ketorolac 30 Mg/Ml Vial) 15 mg IV NOW ONE Stop: 04/25/21 19:13 Last Admin: 04/25/21 19:34 Dose: 15 mg Documented by: Methylprednisolone (Methylprednisolone 125 Mg/2 Ml Vial) 125 mg IV NOW ONE Stop: 04/25/21 17:01 Last Admin: 04/25/21 17:04 Dose: 125 mg Documented by: MAHNAZ Ondansetron HCl (Ondansetron 4 Mg/2 Ml Inj) 4 mg IV NOW ONE Stop: 04/25/21 15:27 Last Admin: 04/25/21 15:56 Dose: 4 mg Documented by: KBROTEM Ondansetron HCl (Ondansetron 4 Mg Odt) 4 mg SL NOW ONE Stop: 04/25/21 15:46 Last Admin: 04/25/21 17:10 Dose: Not Given Documented by: ATAYLOR Oxycodone/Acetaminophen (Oxycodone/Apap 5/325 Prepack) 1 bottle MISC SEEINSTR ONE Stop: 04/25/21 19:18 Last Admin: 04/25/21 19:34 Dose: 1 bottle Documented by: Vital Signs Vital signs: Vital Signs - 8 hr 04/25/21 15:12 04/25/21 16:06 04/25/21 16:30 Temperature 98.0 F Pulse Rate 66 58 L 53 L Respiratory Rate 18 17 18 Blood Pressure 198/94 H 157/71 H 170/79 H Pulse Oximetry 95 93 95 Medical Decision Making <Kandis Enriquez MD - Last Filed: 05/02/21 07:21> Lab Data Result diagrams: 04/25/21 16:11 04/25/21 16:11 Labs: Lab Results 04/25/21 04/25/21 04/25/21 Range/Units 16:08 16:11 16:11 WBC 8.6 (4.5-11.0) X10^3/uL RBC 4.76 (4.0-5.2) X10^6/uL Hgb 14.1 (12.0-16.0) g/dL Hct 42.4 (36-46) % MCV 89.0 (80-100) fL MCH 29.5 (26-34) PG MCHC 33.2 (30-36) % RDW 14.8 (11.6-14.8) % Plt Count 220 (150-400) X10^3/uL Neut % (Auto) 70.2 (50-75) % Lymph % (Auto) 21.9 L (25-40) % Merrick % (Auto) 6.6 (3-14) % Eos % (Auto) 0.9 L (2-4) % Baso % (Auto) 0.4 (0-2) % Neut # (Auto) 6000 (1938-2433) /uL Lymph # (Auto) 1900 (1195-5111) /uL Merrick # (Auto) 600 (0-900) /uL Eos # (Auto) 100 (0-450) /uL Baso # (Auto) 0 (0-100) /uL Sodium 141 (137-145) mmol/L Potassium 3.1 L (3.4-5.1) mmol/L Chloride 102 (98-107) mmol/L Carbon Dioxide 33 H (22-32) mmol/L BUN 12 (7-17) mg/dL Creatinine 0.74 (0.52-1.04) mg/dL Estimated GFR > 60.0 (>60) mL/min BUN/Creatinine Ratio 16.2 (6-22) Glucose 104 (80-110) mg/dL Calcium 9.4 (8.4-10.2) mg/dL Total Bilirubin 0.4 (0.2-1.3) mg/dL AST 25 (14-36) IU/L ALT 31 (<35) IU/L Alkaline Phosphatase 81 (38-126) U/L Total Protein 7.9 (6.3-8.2) g/dL Albumin 4.5 (3.5-5.0) g/dL Globulin 3.4 (1.7-4.1) g/dL Albumin/Globulin Ratio 1.3 (1.0-2.8) Lipase 98 (23-300) U/L SARS-CoV-2 (PCR) Negative (Negative) Urine Dip Bedside Urine Glucose Negative Bedside Urine Bilirubin - Negative Bedside Urine Ketone - Negative Urine Specific Parsons 1.025 Bedside Urine Occult Blood - Negative Bedside Urine pH 6.0 Bedside Urine Protein - Negative Bedside Urine Urobilinogen - Negative Bedside Urine Nitrite - Negative Bedside Urine Leukocytes - Negative Esterase Point of care testing: Urine Dip Bedside Urine Glucose Negative Bedside Urine Bilirubin - Negative Bedside Urine Ketone - Negative Urine Specific Parsons 1.025 Bedside Urine Occult Blood - Negative Bedside Urine pH 6.0 Bedside Urine Protein - Negative Bedside Urine Urobilinogen - Negative Bedside Urine Nitrite - Negative Bedside Urine Leukocytes - Negative Esterase Imaging Data CT scan - abdomen/pelvis: Radiologist's Impression: FINDINGS: Image quality: Excellent. Lung bases: Unremarkable. Heart: No significant findings. ABDOMEN: Liver: Unremarkable. Gallbladder: Surgically absent Biliary ducts: Unremarkable. Pancreas: Unremarkable. Spleen: Unremarkable. Adrenal Glands: Unremarkable. Kidneys and Ureters: Unremarkable. Stomach and Bowel: Stomach, small bowel loops, and colon are unremarkable. Peritoneum: No abnormal intraperitoneal fluid. No free air. Ventral Wall: No hernias. Abdominal Nodes: No retroperitoneal or mesenteric adenopathy by size criteria. Vessels: Aorta and inferior vena cava are normal in size. Circumferential abdominal aortic calcifications. PELVIS: Pelvic Organs: Uterus is surgically absent. Bladder: Unremarkable. Pelvic Nodes: No enlarged lymph nodes. Miscellaneous: No hernias are seen. Bones: Unremarkable. IMPRESSION: 1. No evidence of acute abdominal process. 2. Remote cholecystectomy and hysterectomy. Dictated by: Ramon Aparicio M.D. on 04/25/2021 at 17:29 MDM Narrative Medical decision making narrative: 66-year-old woman with abdominal pain increasing since swallowing a chicken bone on April 22(3 days ago). Labs are normal with the exception of mild hypokalemia with potassium of 3.1. CT scan shows no dramatic acute findings specifically no free air and no obvious foreign body. Patient is re-examined and after pain medication she is increasingly more uncomfortable she now has guarding over the epigastrium to right upper quadrant and hypoactive bowel tones. She continues to be afebrile, normotensive and pain levels are minimally controlled with IV Dilaudid. Her level of pain at this point is not explained by infection, concerns for common bile duct stone (she is post cholecystectomy), ascending cholangitis, no pancreatitis no obvious pancreatic head mass and no other obvious source elucidated on CT scan. Will talk to surgery at this point regarding this woman with severe and worsening right upper quadrant abdominal pain with no obvious etiology. 655pm care is reviewed with General surgery, Dr. Moya. He will come and examine the patient. Given her undiagnosed and severe pain she will at minimum need to be admitted to the medicine service with surgical consultation for serial observation over the course of the evening. If pain continues to worsen or new findings are noted she may need diagnostic laparoscopy. 715 after evaluation, Dr. Moya feels that there is a absolute point tenderness anterior clavicular line rib 11 that when palpated absolutely reproduces her pain. She has no difficulty in moving about the bed lifting her legs to suggest an acute abdomen and her pulse rate remains quite low. His suggestion is Toradol and feels that this is musculoskeletal. After is exam he has recommended discharge home and if she worsens recommended that she come back. <Blaise Hoyos, - Last Filed: 04/26/21 06:24> Lab Data Labs: Lab Results 04/25/21 04/25/21 04/25/21 Range/Units 16:08 16:11 16:11 WBC 8.6 (4.5-11.0) X10^3/uL RBC 4.76 (4.0-5.2) X10^6/uL Hgb 14.1 (12.0-16.0) g/dL Hct 42.4 (36-46) % MCV 89.0 (80-100) fL MCH 29.5 (26-34) PG MCHC 33.2 (30-36) % RDW 14.8 (11.6-14.8) % Plt Count 220 (150-400) X10^3/uL Neut % (Auto) 70.2 (50-75) % Lymph % (Auto) 21.9 L (25-40) % Merrick % (Auto) 6.6 (3-14) % Eos % (Auto) 0.9 L (2-4) % Baso % (Auto) 0.4 (0-2) % Neut # (Auto) 6000 (7008-1873) /uL Lymph # (Auto) 1900 (5413-5194) /uL Merrick # (Auto) 600 (0-900) /uL Eos # (Auto) 100 (0-450) /uL Baso # (Auto) 0 (0-100) /uL Sodium 141 (137-145) mmol/L Potassium 3.1 L (3.4-5.1) mmol/L Chloride 102 (98-107) mmol/L Carbon Dioxide 33 H (22-32) mmol/L BUN 12 (7-17) mg/dL Creatinine 0.74 (0.52-1.04) mg/dL Estimated GFR > 60.0 (>60) mL/min BUN/Creatinine Ratio 16.2 (6-22) Glucose 104 (80-110) mg/dL Calcium 9.4 (8.4-10.2) mg/dL Total Bilirubin 0.4 (0.2-1.3) mg/dL AST 25 (14-36) IU/L ALT 31 (<35) IU/L Alkaline Phosphatase 81 (38-126) U/L Total Protein 7.9 (6.3-8.2) g/dL Albumin 4.5 (3.5-5.0) g/dL Globulin 3.4 (1.7-4.1) g/dL Albumin/Globulin Ratio 1.3 (1.0-2.8) Lipase 98 (23-300) U/L SARS-CoV-2 (PCR) Negative (Negative) Urine Dip Bedside Urine Glucose Negative Bedside Urine Bilirubin - Negative Bedside Urine Ketone - Negative Urine Specific Parsons 1.025 Bedside Urine Occult Blood - Negative Bedside Urine pH 6.0 Bedside Urine Protein - Negative Bedside Urine Urobilinogen - Negative Bedside Urine Nitrite - Negative Bedside Urine Leukocytes - Negative Esterase Point of care testing: Urine Dip Bedside Urine Glucose Negative Bedside Urine Bilirubin - Negative Bedside Urine Ketone - Negative Urine Specific Parsons 1.025 Bedside Urine Occult Blood - Negative Bedside Urine pH 6.0 Bedside Urine Protein - Negative Bedside Urine Urobilinogen - Negative Bedside Urine Nitrite - Negative Bedside Urine Leukocytes - Negative Esterase Discharge Plan Departure Patient Disposition: Home Clinical Impression: Rib pain on right side Abdominal pain Qualifiers: Abdominal location: right upper quadrant Qualified Code(s): R10.11 - Right upper quadrant pain Instructions: DI for Rib Fracture Activity Restrictions/Additional Instructions: Thank you for coming in today Your lab work and CT scanner very reassuring. In the emergency room your also evaluated by our general surgeon who felt that your pain was likely more related to musculoskeletal rib pain rather than abdominal pain. You were given an additional dose of Toradol in the emergency department. I am going to send you home with a couple of tablets of Percocet, a narcotic to help with pain. A prescription for pain medication was also sent to [facility] in [place] for you to black pickler tomorrow if needed Using 400 mg of ibuprofen (2 dknj-daz-eeklzgh pills) and 1 Tylenol every 6 hours can be very helpful in controlling pain. For severe pain using 400 mg of ibuprofen and 1 Percocet would be appropriate. If you use narcotic, you will become constipated. Please make sure you are drinking plenty of water in adding stool softeners as needed If your pain changes, worsens, you develop fevers, are vomiting or unable to pass gas you need to return to the ER for further evaluation I hope you feel better Prescriptions: New hydrocodone-acetaminophen 5-325 mg tablet 1 tab PO BEDTIME PRN (Reason: pain) Qty: 10 RF: 0 No Action atorvastatin 40 mg tablet 40 mg PO DAILY RF: 0 ropinirole 1 mg tablet 4 mg PO DAILY RF: 0 sertraline 100 mg tablet 200 mg PO DAILY RF: 0 aspirin 81 mg tablet,delayed release (DR/EC) 81 mg PO DAILY RF: 0 potassium chloride 20 mEq tablet,ER particles/crystals 20 meq PO BID RF: 0 pantoprazole 40 mg tablet,delayed release (DR/EC) 40 mg PO BID RF: 0 hydrochlorothiazide 25 mg tablet 25 mg PO DAILY RF: 0 losartan 100 mg tablet 100 mg PO DAILY RF: 0 colestipol 1 gram tablet 1 g PO BID RF: 0 Advair HFA 230-21 mcg/actuation HFA aerosol inhaler 1 inh INHALATION BID RF: 0 diclofenac sodium 1 % gel 1 % TOPICAL DIRECTED RF: 0 ondansetron 4 mg tablet,disintegrating 4 mg PO Q6H PRN (Reason: nausea and vomiting) Qty: 14 RF: 0 metoclopramide HCl [Reglan] 10 mg tablet 10 mg PO Q6H PRN (Reason: nausea and vomiting) Qty: 10 RF: 0 Referrals: Nickie Erwin MD [Primary Care Provider] -
[2021-04-25] MEDS: diphenhydrAMINE 50 MG/ML VIAL 25 MG IV (17:04)
[2021-04-25] MEDS: methylPREDNISolone 125 MG/2 ML VIAL IV (17:04)
[2021-04-25 18:02] LABS: COVID19 - ADMIT (NP swab/PCR) Negative (Negative)
--- NOTE | 2021-04-25 19:23 | PM.CN ---
History of Present Illness Consult details Date Patient Seen: 04/25/21 Time Patient Seen: 19:23 Chief complaint: rt sided abd pain Reason for consult: Abdominal pain Narrative: 66-year-old woman presents to the hospital for evaluation of abdominal pain. Developed abdominal pain in the right upper quadrant last night which has been progressively severe in pain. No nausea vomiting fever, diarreah. CBC and CMP normal. CT A/P unremarkable. She did have a coughing/sneezing fit yesterday. Hurts when she takes a deep breath. Previous cholecystectomy. Meds Home Medications and Allergies Home Medications Medication Instructions Recorded Confirmed Type aspirin 81 mg tablet,delayed 81 mg PO DAILY 09/22/19 09/22/19 History release atorvastatin 40 mg tablet 40 mg PO DAILY 09/22/19 09/22/19 History colestipol 1 gram tablet 1 g PO BID 09/22/19 09/22/19 History diclofenac sodium 1 % topical gel 1 % TOPICAL DIRECTED 09/22/19 09/22/19 History fluticasone propionate 230 1 inh INHALATION BID 09/22/19 09/22/19 History mcg-salmeterol 21 mcg/actuation HFA inhaler (Advair HFA) hydrochlorothiazide 25 mg tablet 25 mg PO DAILY 09/22/19 09/22/19 History losartan 100 mg tablet 100 mg PO DAILY 09/22/19 09/22/19 History metoclopramide HCl 10 mg tablet 10 mg PO Q6H PRN #10 tab 09/22/19 Rx (Reglan) ondansetron 4 mg disintegrating 4 mg PO Q6H PRN #14 tab 09/22/19 Rx tablet pantoprazole 40 mg tablet,delayed 40 mg PO BID 09/22/19 09/22/19 History release potassium chloride 20 mEq 20 meq PO BID 09/22/19 09/22/19 History tablet,extended release(part/cryst) ropinirole 1 mg tablet 4 mg PO DAILY 09/22/19 09/22/19 History sertraline 100 mg tablet 200 mg PO DAILY 09/22/19 09/22/19 History hydrocodone 5 mg-acetaminophen 325 1 tab PO BEDTIME PRN #10 tab 04/25/21 Rx mg tablet Allergies Allergy/AdvReac Type Severity Reaction Status Date / Time cimetidine [CIMETIDINE] Allergy Mild HIVES Verified 04/25/21 15:19 IVP DYE Allergy Unknown SOB AND Uncoded 04/25/21 15:19 SYNCOPY FEELING Exam Vital Signs (past 8 hours): - 04/25/21 15:12 04/25/21 16:06 04/25/21 16:30 Temperature 98.0 F Pulse Rate 66 58 L 53 L Respiratory Rate 18 17 18 Blood Pressure 198/94 H 157/71 H 170/79 H Pulse Oximetry 95 93 95 Oxygen Delivery Method Room Air Narrative Exam Narrative: Constitutional-She is oriented to person, place and time. No apparent distress Cardiovascular- regular rate, no peripheral edema Pulmonary-unlabored respiratory effort, no audible wheezing Abdominal-soft. She has point tenderness over a right lower rib. No peritonitis. Musculoskeletal-no cyanosis or clubbing Neurological-nonfocal, normal strength throughout, Skin-warm and dry Objective Labs Result Diagrams: 04/25/21 16:11 04/25/21 16:11 Labs: Laboratory Results - last 24 hr 04/25/21 04/25/21 04/25/21 16:08 16:11 16:11 WBC 8.6 RBC 4.76 Hgb 14.1 Hct 42.4 MCV 89.0 MCH 29.5 MCHC 33.2 RDW 14.8 Plt Count 220 Neut % (Auto) 70.2 Lymph % (Auto) 21.9 L Boundary % (Auto) 6.6 Eos % (Auto) 0.9 L Baso % (Auto) 0.4 Neut # (Auto) 6000 Lymph # (Auto) 1900 Boundary # (Auto) 600 Eos # (Auto) 100 Baso # (Auto) 0 Sodium 141 Potassium 3.1 L Chloride 102 Carbon Dioxide 33 H BUN 12 Creatinine 0.74 Estimated GFR > 60.0 BUN/Creatinine Ratio 16.2 Glucose 104 Calcium 9.4 Total Bilirubin 0.4 AST 25 ALT 31 Alkaline Phosphatase 81 Total Protein 7.9 Albumin 4.5 Globulin 3.4 Albumin/Globulin Ratio 1.3 Lipase 98 SARS-CoV-2 (PCR) Negative [facility], [facility] Medical History Asthma Hyperlipidemia Hypertension Restless leg syndrome Surgical History Status post cholecystectomy Tobacco & Substance Use Smoking Status: Unknown if ever smoked Assessment & Plan Assessment and plan (1) Abdominal pain: Qualifiers: Abdominal location: right upper quadrant Qualified Code(s): R10.11 - Right upper quadrant pain Status: Acute Assessment & Plan narrative: This is a 66-year-old woman who presented to the emergency room with abdominal pain. I reviewed her workup including her laboratory studies and imaging. Both labs and a CT of the abdomen pelvis are unremarkable. On exam she appears to have point tenderness over one of her the right lower ribs and had a recent coughing bout yesterday. I suspect based on her history and examination that she has musculoskeletal pain rather than a intra-abdominal process. If her pain can be of reasonably controlled with p.o. medications and I think she can safely discharge home with return precautions. If pain is uncontrollable then it would be reasonable to admit her for observation. Time Spent With Patient Critical Care time: I spent a total of [] minutes of critical care time on this patient's care today; this time is exclusive of procedural time.
[2021-04-25] MEDS: KETOROLAC 30 MG/ML VIAL 15 MG IV (19:34)
[2021-04-25] MEDS: OXYCODONE/APAP 5/325 PREPACK 1 BOTTLE MISC (19:34)
== END 2021-04-25 19:47 | disposition home or self-care (01) ==
PROVIDERS: Emergency Medicine; Emergency Provider Emergency Medicine; Family Provider Family Medicine; PCP Internal Medicine
DX: R07.81 Pleurodynia (principal); R10.11 Right upper quadrant pain; E87.6 Hypokalemia; Z20.822 Contact with and (suspected) exposure to COVID-19
CPT/HCPCS: 36415; 74177; 80053; 81003; 83690; 85025; 87635; 96374; 96375; 99284; C9803; J1170; J1200; J1885; J2405; J2930

== ENCOUNTER → 2021-06-26 11:05 | Outpatient (CLI) | payer MEDICARE, OTHER, SELFPAY ==
--- NOTE | 2021-06-26 | DI.US.S_ITS ---
PROCEDURE: US ABDOMEN COMPLETE INDICATIONS: DIARRHEA TECHNIQUE: Real-time scanning was performed of the abdominal and retroperitoneal organs, with image documentation. COMPARISON: [facility], CT, CT ABDOMEN PELVIS W CON, 04/25/2021, 17:20. FINDINGS: Liver: Increased echogenicity, concerning for hepatic steatosis. Enlarged, measuring 20.9 cm in length. Gallbladder: Cholecystectomy. Biliary ducts: Intrahepatic bile ducts are non-dilated. Extrahepatic bile duct caliber measures 5 mm. Normal is 6-7 mm or less in diameter, or 10 mm or less post-cholecystectomy. Pancreas: Visualized portions of the pancreas are sonographically normal. Spleen: Normal contour, mildly enlarged measuring up to 13.8 cm. Kidneys: Kidneys are normal in size and echotexture. Right kidney measures 11.2 cm long; left kidney measures 11.7 cm long. No hydronephrosis or nephrolithiasis. No solid masses. Aorta: Visualized aorta is normal in caliber at less than 3 cm. Iliacs: Not well visualized. IVC: Intrahepatic inferior vena cava is patent. Miscellaneous: No free abdominal fluid. IMPRESSION: 1. Hepatic steatosis. 2. Hepatosplenomegaly. Dictated by: Scotty Gay M.D. on 06/26/2021 at 12:10 Approved by: Scotty Gay M.D. on 06/26/2021 at 12:14
== END ==
PROVIDERS: Family Provider Family Medicine; PCP Internal Medicine; Referring Provider Physician Assistant; Visit Provider Physician Assistant
DX: R19.7 Diarrhea, unspecified (principal); K76.0 Fatty (change of) liver, not elsewhere classified; R16.2 Hepatomegaly with splenomegaly, not elsewhere classified; Z90.49 Acquired absence of other specified parts of digestive tract
CPT/HCPCS: 76700

== ENCOUNTER → 2021-07-08 13:02 | Outpatient (CLI) | payer MEDICARE, OTHER, SELFPAY ==
--- NOTE | 2021-07-08 | DI.RAD.S_ITS ---
PROCEDURE: FL UPPER GI SERIES INDICATIONS: Dyskinesia of esophagus COMPARISON: None. 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 No suspicious abdominal calcifications. Visualized solid organ contours appear normal. Bony structures appear unremarkable. Esophagus: Esophageal mucosa is normal on air-contrast views. On single-contrast views, there is normal esophageal peristalsis. No strictures, extrinsic mass effects, or diverticula. No hiatal hernia . There is moderate gastroesophageal reflux to the level of the mid thoracic esophagus. Stomach: The stomach is normally distensible, with normal rugal fold thickness. No mucosal masses or ulcers. Pylorus and duodenal bulb appear normal in morphology. Duodenal folds are normal in thickness as well. IMPRESSION: 1. Gastroesophageal reflux. 2. Otherwise negative upper GI examination. Dictated by: Monique Hoskins M.D. on 07/08/2021 at 15:09 Approved by: Monique Hoskins M.D. on 07/08/2021 at 15:10
== END ==
PROVIDERS: Family Provider Family Medicine; PCP Internal Medicine; Referring Provider Internal Medicine; Visit Provider Internal Medicine
DX: K22.4 Dyskinesia of esophagus (principal); K21.9 Gastro-esophageal reflux disease without esophagitis
CPT/HCPCS: 74240

== ENCOUNTER 2021-11-13 18:22 | Observation (INO) | payer MEDICARE, OTHER, SELFPAY ==
[2021-11-13] VITALS (13 sets, daily range): BP systolic 102–163; BP diastolic 62–73; PULSE 61–79; RESP 20–74; TEMP 36.1; O2SAT 92–96; BMI 45.3
--- NOTE | 2021-11-13 18:24 | DI.RAD.S_ITS ---
PROCEDURE: XR CHEST 1V INDICATIONS: chest pain TECHNIQUE: One view of the chest was acquired. COMPARISON: [facility], CR, XR CHEST 1V, 09/04/2019, 11:26. FINDINGS: Surgical changes and devices: None. Lungs and pleura: Lungs are clear. No pleural effusions or pneumothorax. Mediastinum: Mediastinal contours appear normal. Heart size is normal. Bones and chest wall: No suspicious bony lesions. Overlying soft tissues appear unremarkable. IMPRESSION: No evidence acute pulmonary process. Dictated by: Ramon Aparicio M.D. on 11/13/2021 at 19:40 Approved by: Ramon Aparicio M.D. on 11/13/2021 at 19:40
[2021-11-13 18:55] LABS: Add Manual Diff / Slide Review NO; Basophils Absolute Auto 0 /uL (0-100); Basophils Percent Auto 0.5 % (0-2); Eosinophils Absolute Auto 100 /uL (0-450); Eosinophils Percent Auto 0.8 % (2-4); Hemoglobin 13.4 g/dL (12.0-16.0); Lymphocytes Absolute Auto 2000 /uL (1100-4500); Lymphocytes Percent Auto 26.8 % (25-40); Mean Corpuscular HGB Conc 34.3 % (30-36); Mean Corpuscular Hemoglobin 30.3 PG (26-34); Mean Corpuscular Volume 88.4 fL (80-100); Monocytes Absolute Auto 400 /uL (0-900); Monocytes Percent Auto 5.9 % (3-14); Neutrophils Absolute Auto 4800 /uL (1500-7000); Platelet Count 207 X10^3/uL (150-400); Red Blood Cell Count 4.41 X10^6/uL (4.0-5.2); Red Cell Distribution Width 14.7 % (11.6-14.8); White Blood Cell Count 7.3 X10^3/uL (4.5-11.0)
[2021-11-13 19:03] LABS: Alanine Aminotransferase 29 IU/L (<35); Albumin 4.4 g/dL (3.5-5.0); Albumin Globulin Ratio 1.3 (1.0-2.8); Alkaline Phosphatase 81 U/L (38-126); Aspartate Aminotransferase 26 IU/L (14-36); BUN Creatinine Ratio 18.1 (6-22); Bilirubin Total 0.4 mg/dL (0.2-1.3); Blood Urea Nitrogen 17 mg/dL (7-17); Carbon Dioxide 30 mmol/L (22-32); Chloride 102 mmol/L (98-107); Creatine Kinase 69 U/L (30-135); Estimated Glomerular Filt Rate > 60 mL/min (>60); Globulin 3.4 g/dL (1.7-4.1); Glucose 94 mg/dL (80-110); HEMOLYSIS 16 (0-50); Lipase 125 U/L (23-300); Magnesium 1.8 mg/dL (1.6-2.3); Potassium 3.4 mmol/L (3.4-5.1); Sodium 140 mmol/L (137-145); Total Protein 7.8 g/dL (6.3-8.2)
[2021-11-13 19:15] LABS: Troponin I < 0.012 ng/mL (0.01-0.034)
[2021-11-13 19:42] LABS: NT-proBNP (BNP-Adult 18+) 53 pg/mL (<125)
--- NOTE | 2021-11-13 20:24 | ED_ITS ---
HPI - Chest Pain General Chief Complaint: Chest Pain Stated Complaint: chest pain, states fluid build up in lungs Time Seen by Provider: 11/13/21 20:15 Source: patient Mode of arrival: Ambulatory Limitations: no limitations History of Present Illness HPI narrative: Patient is a 66-year-old female history of hypertension hyperlipidemia presenting today with increasing shortness of breath. She was seen evaluated by her primary care provider earlier this month for shortness of breath. She has chest x-ray which showed some fluid on her lungs she was started on Lasix. She says that she lost 10 lb but still continued to have shortness of breath. She has severe shortness of breath with exertion, she denies any orthopnea. She says the last week she has gained 6 lb back but continues to have shortness of breath. She also has remote history of pulmonary embolisms back in the 1989 she is not on any anticoagulation. She has a slight cough but no fever or chills. She has no chest pain or tightness. She apparently also has a nebulizer at home she occasionally uses sometimes it helps but still has severe shortness of breath with exertion. Related Data Home Medications Medication Instructions Recorded Confirmed aspirin 81 mg tablet,delayed 81 mg PO DAILY 09/22/19 09/22/19 release atorvastatin 40 mg tablet 40 mg PO DAILY 09/22/19 09/22/19 colestipol 1 gram tablet 1 g PO BID 09/22/19 09/22/19 diclofenac sodium 1 % topical gel 1 % TOPICAL DIRECTED 09/22/19 09/22/19 fluticasone propionate 230 1 inh INHALATION BID 09/22/19 09/22/19 mcg-salmeterol 21 mcg/actuation HFA inhaler (Advair HFA) hydrochlorothiazide 25 mg tablet 25 mg PO DAILY 09/22/19 09/22/19 losartan 100 mg tablet 100 mg PO DAILY 09/22/19 09/22/19 pantoprazole 40 mg tablet,delayed 40 mg PO BID 09/22/19 09/22/19 release potassium chloride 20 mEq 20 meq PO BID 09/22/19 09/22/19 tablet,extended release(part/cryst) ropinirole 1 mg tablet 4 mg PO DAILY 09/22/19 09/22/19 sertraline 100 mg tablet 200 mg PO DAILY 09/22/19 09/22/19 Previous Rx's Medication Instructions Recorded metoclopramide HCl 10 mg tablet 10 mg PO Q6H PRN #10 tab 09/22/19 (Reglan) ondansetron 4 mg disintegrating 4 mg PO Q6H PRN #14 tab 09/22/19 tablet hydrocodone 5 mg-acetaminophen 325 1 tab PO BEDTIME PRN #10 tab 04/25/21 mg tablet Allergies Allergy/AdvReac Type Severity Reaction Status Date / Time cimetidine [CIMETIDINE] Allergy Mild HIVES Verified 04/25/21 15:19 IVP DYE Allergy Unknown SOB AND Uncoded 04/25/21 15:19 SYNCOPY FEELING Review of Systems Review of Systems Narrative: GENERAL: Denies chills, fatigue, malaise, fever, sweats, travel HEENT: Denies sinus pain, ear pain, sore throat, difficulty swallowing, neck pain RESPIRATORY: See HPI CARDIOVASCULAR: Denies chest pain, palpitations, orthopnea, edema GASTROINTESTINAL: Denies nausea, vomiting, abdominal pain, diarrhea, constipation, melena. : Denies dysuria, frequency, incontinence, hematuria, urinary retention, flank pain. MUSCULOSKELETAL: Denies weakness, joint pain, or bony pain SKIN: No rash, no erythema, no pruritus NEUROLOGIC: Denies weakness, dizziness, headache, numbness, change in speech, confusion PSYCHIATRIC: No concerning psychosocial issues. 12 point review of systems is negative except for those stated above and HPI Patient History Medical History Asthma Hyperlipidemia Hypertension Restless leg syndrome Surgical History Status post cholecystectomy Social History Smoking Status: Former smoker Smoking Status: Former smoker alcohol intake frequency: holidays/special occasions only Substance Use Type: does not use Exam Initial Vital Signs Initial Vital Signs: Vital Signs Temperature 97.0 F L 11/13/21 18:26 Pulse Rate 70 11/13/21 18:26 Respiratory Rate 24 11/13/21 18:26 Blood Pressure 155/71 H 11/13/21 18:26 Pulse Oximetry 95 11/13/21 18:26 GENERAL: Alert 66-year-old female in no acute] distress. HEENT: Head atraumatic,EOMI, pupils reactive, face symmetric, moist mucous membranes CARDIOVASCULAR: Regular rate and rhythm without murmurs, rubs or gallops. RESPIRATORY: Breath sounds equal bilaterally, no wheezes rales or rhonchi. No conversational dyspnea ABDOMEN: Soft, nontender. Normoactive bowel sounds all 4 quadrants. No guarding or rebound. EXTREMITIES: Normal range of motion, no clubbing or edema. Neurovascularly intact NEUROLOGICAL: Alert and oriented x4.Normal gait and speech. SKIN: Warm, dry, no laceration, no petechiae, no rashes or lesions. Course Orders Ordered: ED Orders 11/13/21 18:40 BNP [NT-proBNP (BNP-Adult 18+)] Stat Complete Blood Count AUTO DIFF Stat Comprehensive Metabolic Panel Stat Lipase Stat Magnesium Stat Troponin & CK Cardiac Panel Stat 11/13/21 20:34 CT angio chest PE protocol Stat 11/13/21 21:35 COVID19 -Nasal RAPID/Pre-Proc Stat 11/13/21 23:10 EC echo doppler complete Urgent Discontinued Medications Albuterol/Ipratropium (Albuterol/Ipratropium 3 Ml Ampul) 3 ml INH NOW ONE Stop: 11/13/21 20:35 Last Admin: 11/13/21 21:22 Dose: 3 ml Documented by: BEKA Apixaban (Apixaban 5 Mg Tablet) 5 mg PO NOW ONE Stop: 11/13/21 22:42 Last Admin: 11/13/21 23:16 Dose: Not Given Documented by: BEKA Apixaban (Apixaban 5 Mg Tablet) 10 mg PO NOW ONE Stop: 11/13/21 22:44 Last Admin: 11/13/21 23:01 Dose: 10 mg Documented by: HAN Diphenhydramine HCl (Diphenhydramine 50 Mg/Ml Vial) 25 mg IV NOW ONE Stop: 11/13/21 20:48 Last Admin: 11/13/21 21:01 Dose: 25 mg Documented by: MINDY Methylprednisolone (Methylprednisolone 125 Mg/2 Ml Vial) 125 mg IV NOW ONE Stop: 11/13/21 20:48 Last Admin: 11/13/21 21:00 Dose: 125 mg Documented by: MINDY Vital Signs Vital signs: Vital Signs - 8 hr 11/13/21 19:30 11/13/21 19:38 11/13/21 20:00 Pulse Rate 61 66 65 Respiratory Rate 22 30 H 20 Blood Pressure 153/70 H 148/67 H Pulse Oximetry 96 95 95 11/13/21 20:30 11/13/21 21:00 11/13/21 21:01 Pulse Rate 66 62 62 Respiratory Rate 33 H 25 H 35 H Blood Pressure 163/73 H 102/62 Pulse Oximetry 96 93 94 11/13/21 22:44 11/13/21 23:04 11/13/21 23:05 Pulse Rate 69 65 65 Respiratory Rate 22 Blood Pressure 151/68 H 154/71 H Pulse Oximetry 93 94 93 MDM - Chest Pain Lab Data Result diagrams: 11/13/21 18:40 11/13/21 18:40 Labs: Lab Results 11/13/21 11/13/21 11/13/21 Range/Units 18:40 18:40 18:40 WBC 7.3 (4.5-11.0) X10^3/uL RBC 4.41 (4.0-5.2) X10^6/uL Hgb 13.4 (12.0-16.0) g/dL Hct 39.0 (36-46) % MCV 88.4 (80-100) fL MCH 30.3 (26-34) PG MCHC 34.3 (30-36) % RDW 14.7 (11.6-14.8) % Plt Count 207 (150-400) X10^3/uL Neut % (Auto) 66.0 (50-75) % Lymph % (Auto) 26.8 (25-40) % Cow[place] % (Auto) 5.9 (3-14) % Eos % (Auto) 0.8 L (2-4) % Baso % (Auto) 0.5 (0-2) % Neut # (Auto) 4800 (1217-3357) /uL Lymph # (Auto) 2000 (3277-0535) /uL [place]ley # (Auto) 400 (0-900) /uL Eos # (Auto) 100 (0-450) /uL Baso # (Auto) 0 (0-100) /uL Sodium 140 (137-145) mmol/L Potassium 3.4 (3.4-5.1) mmol/L Chloride 102 (98-107) mmol/L Carbon Dioxide 30 (22-32) mmol/L BUN 17 (7-17) mg/dL Creatinine 0.94 (0.52-1.04) mg/dL Estimated GFR > 60 (>60) mL/min BUN/Creatinine Ratio 18.1 (6-22) Glucose 94 (80-110) mg/dL Calcium 9.0 (8.4-10.2) mg/dL Magnesium 1.8 (1.6-2.3) mg/dL Total Bilirubin 0.4 (0.2-1.3) mg/dL AST 26 (14-36) IU/L ALT 29 (<35) IU/L Alkaline Phosphatase 81 (38-126) U/L Total Creatine Kinase 69 (30-135) U/L CK-MB (CK-2) TNP CK-MB (CK-2) Rel Index TNP Troponin I < 0.012 (0.01-0.034) ng/mL NT-Pro-B Natriuret Pep 53 (<125) pg/mL Total Protein 7.8 (6.3-8.2) g/dL Albumin 4.4 (3.5-5.0) g/dL Globulin 3.4 (1.7-4.1) g/dL Albumin/Globulin Ratio 1.3 (1.0-2.8) Lipase 125 (23-300) U/L SARS-CoV-2 (PCR) (Negative) 11/13/21 Range/Units 21:35 WBC (4.5-11.0) X10^3/uL RBC (4.0-5.2) X10^6/uL Hgb (12.0-16.0) g/dL Hct (36-46) % MCV (80-100) fL MCH (26-34) PG MCHC (30-36) % RDW (11.6-14.8) % Plt Count (150-400) X10^3/uL Neut % (Auto) (50-75) % Lymph % (Auto) (25-40) % Cowley % (Auto) (3-14) % Eos % (Auto) (2-4) % Baso % (Auto) (0-2) % Neut # (Auto) (7462-4411) /uL Lymph # (Auto) (8332-3963) /uL Cowley # (Auto) (0-900) /uL Eos # (Auto) (0-450) /uL Baso # (Auto) (0-100) /uL Sodium (137-145) mmol/L Potassium (3.4-5.1) mmol/L Chloride (98-107) mmol/L Carbon Dioxide (22-32) mmol/L BUN (7-17) mg/dL Creatinine (0.52-1.04) mg/dL Estimated GFR (>60) mL/min BUN/Creatinine Ratio (6-22) Glucose (80-110) mg/dL Calcium (8.4-10.2) mg/dL Magnesium (1.6-2.3) mg/dL Total Bilirubin (0.2-1.3) mg/dL AST (14-36) IU/L ALT (<35) IU/L Alkaline Phosphatase (38-126) U/L Total Creatine Kinase (30-135) U/L CK-MB (CK-2) CK-MB (CK-2) Rel Index Troponin I (0.01-0.034) ng/mL NT-Pro-B Natriuret Pep (<125) pg/mL Total Protein (6.3-8.2) g/dL Albumin (3.5-5.0) g/dL Globulin (1.7-4.1) g/dL Albumin/Globulin Ratio (1.0-2.8) Lipase (23-300) U/L SARS-CoV-2 (PCR) Negative (Negative) Urine Dip Bedside Urine Glucose Negative Bedside Urine Bilirubin - Negative Bedside Urine Ketone - Negative Urine Specific [place] 1.015 Bedside Urine Occult Blood - Negative Bedside Urine pH 6.0 Bedside Urine Protein - Negative Bedside Urine Urobilinogen - Negative Bedside Urine Nitrite - Negative Bedside Urine Leukocytes - Negative Esterase Imaging Data CT scan - chest: Radiologist's Impression: Leslie García MR#: [id number] : 1955 Acct:[id number] Age/Sex: 66 / F Date of Service: 11/13/21 Loc: ED Accession Number: [id number] ?? Procedure: CT angio chest PE protocol Ordering Provider: Gabbi Martinez D.O. PROCEDURE:? CT ANGIO CHEST PE PROTOCOL ? INDICATIONS:? short of breath, hx PE (1989) ? TECHNIQUE:? After the administration of intravenous contrast, 2 mm thick sections acquired from the pulmonary apices to the posterior costophrenic angles.? 3-dimensional maximum intensity projection (MIP) coronal and sagittal reformats were then acquired through the thorax.? For radiation dose reduction, the following was used:? automated exposure control, adjustment of mA and/or kV according to patient size.? ? COMPARISON:? [facility], CT, CT ANGIO CHEST PE PROTOCOL, 09/04/2019, 13:35. ? FINDINGS:? Image quality:? Suboptimal.? There is poor timing and poor contrast density. ? Pulmonary arteries:? There is no large central pulmonary embolus, although a distal embolus in the right lower lobe at the bifurcation may be present there may also be an embolus present at the bifurcation of superior and inferior right middle lobe pulmonary arteries.? No definite left-sided pulmonary emboli. ? Lungs and pleura:? Mild upper lobe emphysematous changes and anterior right upper lobe ovoid chronic masses.? The larger measures 2.5 x 1.4 cm.? This is hyperdense.? The smaller, also somewhat hyperdense measures 1.6 cm in longitudinal diameter, both stable.? Mild bilateral perihilar bronchial wall thickening.? Central airways are patent. ? Mediastinum:? Heart size is normal, without pericardial effusion.? Mild coronary artery calcification.? No intraventricular septal bowing.? No mediastinal or hilar adenopathy.? Thoracic aorta is normal in caliber and enhancement.? Esophagus is normal in caliber, without hiatal hernia.? ? Bones and chest wall:? No suspicious bony lesions.? Ribs and thoracic spine appear intact throughout.? Thyroid gland is normal.? No axillary or supraclavicular adenopathy.? ? Abdomen:? Visualized upper abdominal solid organs appear normal in the early arterial phase of enhancement.? ? IMPRESSION:? ? 1. Very small right middle and lower lobe pulmonary emboli suspected.? No evidence of right heart strain. ? 2. No acute pulmonary parenchymal disease.? Findings are superimposed on mild emphysema and mild bronchitis. ? 3. Chronic and stable anterior right upper lobe solid, slightly hyperdense lung masses of uncertain etiology.? Malignant process less likely given stability. ? 4. Discussed with Dr. Martinez in the emergency room at 22 13 hours.? ? ? Dictated by: Clarice Weaver M.D. on 11/13/2021 at 21:49 ? ? Approved by: Clarice Weaver M.D. on 11/13/2021 at 22:15 ? ECG Data Interpretation: Normal sinus rhythm at 66 IL interval 178 QRS [address] changes no T-wave inversion MDM Narrative Medical decision making narrative: Patient overall does not appear fluid overloaded she has no peripheral edema lungs are clear BNP is 53 chest x-ray is clear. This is unlikely congestive heart failure. She is scheduled for an echocardiogram January. With prior history of pulmonary embolism will check CT. CT shows very some mole right middle and lower lobe pulmonary emboli. There is no evidence of pain arterial or saddle emboli. She is having shortness of breath this may be the cause of it. She states that he actually started having some symptoms possibly even in August. Patient ambulated in the ED her O2 dropped to 86% and she was severely dyspneic. Not sure if patient very small pulmonary embolisms are causing her to be still hypoxic. Patient says that she is COPD she is a long-time smoker started at the age of 14 and quit 20 years ago. She has movement with her do not treatment here in the emergency department. She has also been using them at home with also minimal improvement. He does have a home concentrator at home but unclear why patient significantly hypoxic with exertion Dr. welch, updated patient's symptoms test results and happily accepted in ED to see and evaluate patient Discharge Plan Departure Patient Disposition: Admitted as Observation Clinical Impression: Pulmonary embolism Admit Date/Time: 11/13/21 23:12 Admit Provider: Francisco Welch
--- NOTE | 2021-11-13 20:34 | DI.CT.S_ITS ---
PROCEDURE: CT ANGIO CHEST PE PROTOCOL INDICATIONS: short of breath, hx PE (1989) TECHNIQUE: After the administration of intravenous contrast, 2 mm thick sections acquired from the pulmonary apices to the posterior costophrenic angles. 3-dimensional maximum intensity projection (MIP) coronal and sagittal reformats were then acquired through the thorax. For radiation dose reduction, the following was used: automated exposure control, adjustment of mA and/or kV according to patient size. COMPARISON: [facility], CT, CT ANGIO CHEST PE PROTOCOL, 09/04/2019, 13:35. FINDINGS: Image quality: Suboptimal. There is poor timing and poor contrast density. Pulmonary arteries: There is no large central pulmonary embolus, although a distal embolus in the right lower lobe at the bifurcation may be present there may also be an embolus present at the bifurcation of superior and inferior right middle lobe pulmonary arteries. No definite left-sided pulmonary emboli. Lungs and pleura: Mild upper lobe emphysematous changes and anterior right upper lobe ovoid chronic masses. The larger measures 2.5 x 1.4 cm. This is hyperdense. The smaller, also somewhat hyperdense measures 1.6 cm in longitudinal diameter, both stable. Mild bilateral perihilar bronchial wall thickening. Central airways are patent. Mediastinum: Heart size is normal, without pericardial effusion. Mild coronary artery calcification. No intraventricular septal bowing. No mediastinal or hilar adenopathy. Thoracic aorta is normal in caliber and enhancement. Esophagus is normal in caliber, without hiatal hernia. Bones and chest wall: No suspicious bony lesions. Ribs and thoracic spine appear intact throughout. Thyroid gland is normal. No axillary or supraclavicular adenopathy. Abdomen: Visualized upper abdominal solid organs appear normal in the early arterial phase of enhancement. IMPRESSION: 1. Very small right middle and lower lobe pulmonary emboli suspected. No evidence of right heart strain. 2. No acute pulmonary parenchymal disease. Findings are superimposed on mild emphysema and mild bronchitis. 3. Chronic and stable anterior right upper lobe solid, slightly hyperdense lung masses of uncertain etiology. Malignant process less likely given stability. 4. Discussed with Dr. Martinez in the emergency room at 22 13 hours. Dictated by: Clarice Weaver M.D. on 11/13/2021 at 21:49 Approved by: Clarice Weaver M.D. on 11/13/2021 at 22:15
[2021-11-13] MEDS: methylPREDNISolone 125 MG/2 ML VIAL IV (21:00)
[2021-11-13] MEDS: diphenhydrAMINE 50 MG/ML VIAL 25 MG IV (21:01)
[2021-11-13] MEDS: ALBUTEROL/IPRATROPIUM 3 ML AMPUL INH (21:22)
[2021-11-13 22:01] LABS: COVID19 -Nasal RAPID Negative (Negative)
[2021-11-13] MEDS: APIXABAN 5 MG TABLET 10 MG PO (23:01)
--- NOTE | 2021-11-13 23:10 | DI.ECHO.S_ITS ---
[facility]---------+ [facility] +---------+ : : [address] : : : : [id number] : : : : Phone: [phone] Echocardiogram Report + + :Name: KALIE DIXON Study Date: 11/14/2021 Height: 64 in : :[facility] ReadingLocation: Weight: 264 lb : : Gender: Female BSA: 2.2 m2 : :: 1955 Age: 66 yrs BP: 169/79 mmHg: :Reason For Study: PULMONARY EMBOLISM, CHF? : :Ordering Physician: DAVEY, : :KEY Performed By: Mikayla Branham : :Referring: KEY MARISCAL : + + Interpretation Summary There is mild concentric left ventricular hypertrophy. The ejection fraction is estimated to be 60-65%. Diastolic function could not be accurately assessed due to unobtainable data. The right ventricle is normal in size and function. No significant valvular abnormalities. Unable to estimate PASP. Compared to the prior study dated 07/15/2017, no significant change. Procedure: A two-dimensional transthoracic echocardiogram with color flow and Doppler was performed. The study quality was technically difficult. Comparison is made with the echocardiogram of 07/15/2017. The patient was in sinus rhythm with heart rates between 63-73 bpm during the exam. Left Ventricle: The left ventricle is normal in size. There is mild concentric left ventricular hypertrophy. The ejection fraction is estimated to be 60-65%. Diastolic function could not be accurately assessed due to unobtainable data. Right Ventricle: The right ventricle is normal in size and function. Atria: The left atrial size is normal. Right atrial size is normal. There is no Doppler evidence for an interatrial shunt. Mitral Valve: There is mild mitral annular calcification. There is no mitral regurgitation noted. Aortic Valve: The aortic valve is not well visualized. The aortic valve is mildly calcified. There is mild aortic valve sclerosis. There is no aortic valve stenosis. No aortic regurgitation is present. Tricuspid Valve: The tricuspid valve is normal in structure and function. There is trace tricuspid regurgitation. Pulmonary artery pressures cannot be estimated because of the lack of a measurable TR jet velocity. Pulmonic Valve: The pulmonic valve is not well visualized. There is no pulmonic valvular regurgitation. Great Vessels: The aortic root is normal size. The ascending aorta could not be visualized. The IVC is dilated (diameter is greater than 2.1 cm) yet it collapses greater than 50% with a sniff. This suggests a right atrial pressure of 8 mm Hg. Pericardium/ Pleura There is no pericardial effusion. There is an anterior echo-free space consistent with a fat pad. There is no pleural effusion. MMode/2D Measurements & Calculations LVIDd: 3.8 cm LVOT diam: 2.1 cm IVSd: 1.2 cm Ao root diam: 3.0 cm LVPWd: 0.93 cm Ao Arch Diam (Prox Trans): 3.1 cm LV gentile. diameter/BSA (cm/m^2): 1.7 LA A2 area: 22.8 cm2 RA long axis: 4.0 cm LA A4 area: 15.1 cm2 RA area: 11.2 cm2 LA length (vol): 4.9 cm RA vol: 26.4 ml LA vol: 58.9 ml RA : 12.0 ml/m2 LA vol index: 26.8 ml/m2 IVC diam: 2.4 cm RVD1 (basal): 3.2 cm RVD2 (mid): 3.1 cm TAPSE: 2.2 cm Doppler Measurements & Calculations Ao V2 max: 167.5 cm/sec LVOT Max Shadi: 97.7 cm/sec Ao V2 mean: 123.1 cm/sec LV V1 max P.8 mmHg Ao max P.2 mmHg LV V1 VTI: 25.1 cm Ao mean P.6 mmHg NITISH(I,D): 1.9 cm2 Ao V2 VTI: 43.6 cm NITISH(V,D): 2.0 cm2 sev ratio: 0.58 NITISH indexed to BSA (cm^2/m^2): 0.88 MV E max shadi: 80.3 cm/sec PA V2 max: 102.5 cm/sec MV A max shadi: 91.9 cm/sec PA V2 mean: 70.8 cm/sec MV E/A: 0.87 PA mean P.3 mmHg Med Peak E' Shadi: 7.3 cm/sec PA pr(Accel): 24.2 mmHg E/E' med: 10.9 Lat Peak E' Shadi: 8.8 cm/sec E/E' lat: 9.1 E/e' average: 10.0 MV dec time: 0.38 sec SV(LVOT): 84.9 ml Reading Physician:11:50 AM
[2021-11-14] VITALS (42 sets, daily range): BP systolic 137–218; BP diastolic 62–91; PULSE 58–95; RESP 12–48; TEMP 36–36.6; O2SAT 89–96; BMI 45.3
--- NOTE | 2021-11-14 06:39 | PM.HP.1 ---
History of Present Illness History of Present Illness Date Patient Seen: 11/13/21 Time Patient Seen: 22:00 Chief complaint: chest pain, states fluid build up in lungs Narrative: Ms. García is a 66W with PMH HTN, HL, COPD on nighttime O2, REINA, hx PE, possible CHF who presents to the hospital with shortness of breath. She states that she has had chronic shortness of breath for months, worse since August 2021. She has seen her PCP and has been started on lasix, and has lost 10lb with no significant improvement in respiratory symptoms. ECHO has been pending. She has a history of PE, she is a former smoker and has COPD. She uses CPAP with oxygen at night, she has oxygen concentrator that is portable but does not consistently use this. She has noted worsening tightness in her chest and shortness of breath with exertion. No cough, fevers/chills, or wheezing. Her PCP recommended her come to the ED. Her last stress test was over a decade ago. In the ED workup was done, vitals notable for tachypnea, she desats to the 80s with exertion. Labs notable for WBC 7.3, creatinine 0.94. Trop negative. BNP 53. COVID negative. CTA showed suspected right middle and lower lobe small PE. Mild emphysema. Multiple chronic lung masses in the right upper lobe that per report were stable. She was ordered for steroids and apixaban and admitted for further treatment. Family history - father, multiple brothers with CAD Patient History Medical History Asthma Hyperlipidemia Hypertension Restless leg syndrome Surgical History Status post cholecystectomy Family & Social History Safety & Behavioral: Feels Safe in Current Yes Environment Been Physically Hurt or No Threatened By a Person Tobacco & Substance use: Smoking Status Former smoker alcohol intake frequency holiday/special occasion Substance Use Type does not use Meds Home Medications and Allergies Home Medications Medication Instructions Recorded Confirmed Type aspirin 81 mg tablet,delayed 81 mg PO DAILY 09/22/19 09/22/19 History release atorvastatin 40 mg tablet 40 mg PO DAILY 09/22/19 09/22/19 History colestipol 1 gram tablet 1 g PO BID 09/22/19 09/22/19 History diclofenac sodium 1 % topical gel 1 % TOPICAL DIRECTED 09/22/19 09/22/19 History fluticasone propionate 230 1 inh INHALATION BID 09/22/19 09/22/19 History mcg-salmeterol 21 mcg/actuation HFA inhaler (Advair HFA) hydrochlorothiazide 25 mg tablet 25 mg PO DAILY 09/22/19 09/22/19 History losartan 100 mg tablet 100 mg PO DAILY 09/22/19 09/22/19 History metoclopramide HCl 10 mg tablet 10 mg PO Q6H PRN #10 tab 09/22/19 Rx (Reglan) ondansetron 4 mg disintegrating 4 mg PO Q6H PRN #14 tab 09/22/19 Rx tablet pantoprazole 40 mg tablet,delayed 40 mg PO BID 09/22/19 09/22/19 History release potassium chloride 20 mEq 20 meq PO BID 09/22/19 09/22/19 History tablet,extended release(part/cryst) ropinirole 1 mg tablet 4 mg PO DAILY 09/22/19 09/22/19 History sertraline 100 mg tablet 200 mg PO DAILY 09/22/19 09/22/19 History hydrocodone 5 mg-acetaminophen 325 1 tab PO BEDTIME PRN #10 tab 04/25/21 Rx mg tablet Allergies Allergy/AdvReac Type Severity Reaction Status Date / Time cimetidine [CIMETIDINE] Allergy Mild HIVES Verified 04/25/21 15:19 IVP DYE Allergy Unknown SOB AND Uncoded 04/25/21 15:19 SYNCOPY FEELING Review of Systems Review of Systems Narrative: 14 systems reviewed and negative aside from what is noted in HPI Exam Vital Signs (past 8 hours): - 11/13/21 22:44 11/13/21 23:04 11/13/21 23:05 Pulse Rate 69 65 65 Respiratory Rate 22 Blood Pressure 151/68 H 154/71 H Pulse Oximetry 93 94 93 11/13/21 23:30 11/14/21 00:00 11/14/21 00:30 Pulse Rate 79 72 81 Respiratory Rate 29 H 48 H 44 H Blood Pressure Pulse Oximetry 92 92 94 11/14/21 01:00 11/14/21 01:30 11/14/21 01:44 Pulse Rate 72 67 72 Respiratory Rate 20 20 18 Blood Pressure 158/69 H Pulse Oximetry 90 L 90 L 92 11/14/21 02:00 11/14/21 02:02 11/14/21 02:30 Pulse Rate 69 67 72 Respiratory Rate 20 19 18 Blood Pressure 179/72 H Pulse Oximetry 89 L 91 90 L 11/14/21 03:00 11/14/21 03:30 11/14/21 04:00 Pulse Rate 69 71 64 Respiratory Rate 12 20 17 Blood Pressure Pulse Oximetry 92 91 91 11/14/21 04:30 11/14/21 05:00 Pulse Rate 71 68 Respiratory Rate 20 19 Blood Pressure Pulse Oximetry 91 91 Oxygen Delivery Method Room Air Narrative Exam Narrative: GEN: no acute distress HEENT: moist mucous membranes, PERRL NECK: trachea midline, no JVD CV: regular rate and rhythm, no murmurs PULM: clear bilaterally ABD: soft, nontender, nondistended, no organomegaly EXT: warm and well perfused, no edema NEURO: awake, alert, no focal deficits Objective Labs Result Diagrams: 11/13/21 18:40 11/13/21 18:40 Labs: Laboratory Results - last 24 hr 11/13/21 11/13/21 11/13/21 18:40 18:40 18:40 WBC 7.3 RBC 4.41 Hgb 13.4 Hct 39.0 MCV 88.4 MCH 30.3 MCHC 34.3 RDW 14.7 Plt Count 207 Neut % (Auto) 66.0 Lymph % (Auto) 26.8 [place] % (Auto) 5.9 Eos % (Auto) 0.8 L Baso % (Auto) 0.5 Neut # (Auto) 4800 Lymph # (Auto) 2000 [place] # (Auto) 400 Eos # (Auto) 100 Baso # (Auto) 0 Sodium 140 Potassium 3.4 Chloride 102 Carbon Dioxide 30 BUN 17 Creatinine 0.94 Estimated GFR > 60 BUN/Creatinine Ratio 18.1 Glucose 94 Calcium 9.0 Magnesium 1.8 Total Bilirubin 0.4 AST 26 ALT 29 Alkaline Phosphatase 81 Total Creatine Kinase 69 CK-MB (CK-2) TNP CK-MB (CK-2) Rel Index TNP Troponin I < 0.012 NT-Pro-B Natriuret Pep 53 Total Protein 7.8 Albumin 4.4 Globulin 3.4 Albumin/Globulin Ratio 1.3 Lipase 125 SARS-CoV-2 (PCR) 11/13/21 21:35 WBC RBC Hgb Hct MCV MCH MCHC RDW Plt Count Neut % (Auto) Lymph % (Auto) [place] % (Auto) Eos % (Auto) Baso % (Auto) Neut # (Auto) Lymph # (Auto) [place] # (Auto) Eos # (Auto) Baso # (Auto) Sodium Potassium Chloride Carbon Dioxide BUN Creatinine Estimated GFR BUN/Creatinine Ratio Glucose Calcium Magnesium Total Bilirubin AST ALT Alkaline Phosphatase Total Creatine Kinase CK-MB (CK-2) CK-MB (CK-2) Rel Index Troponin I NT-Pro-B Natriuret Pep Total Protein Albumin Globulin Albumin/Globulin Ratio Lipase SARS-CoV-2 (PCR) Negative Assessment & Plan Assessment & Plan narrative: Ms. García is a 66W with PMH COPD, hx PE, presumed CHF who presents with acute worsening of chronic dyspnea 1. Acute on chronic hypoxemic respiratory failure -has presumed CHF, but patient states she has diuresed well since starting lasix -CTA shows small PEs -mass noted in lung, has been followed by pulmonary, appears to be stable, continue to follow as outpatient -does not have symptoms consistent with COPD flare or pneumonia -ordered for eliquis -does have oxygen at home -will need follow up as outpatient to determine how to long to be on eliquis, possibly for life -ECHO ordered to eval for EF, right sided dysfunction -recheck another troponin to rule out ACS 2. COPD, chronic -ordered duonebs 3. Morbid obesity -BMI 45.3 -likely contributing to respiratory symptoms 4. Lung mass -appears stable -followed by pulmonary, will need continued outpatient follow up 5. Hypertension -hold losartan for now 6. Restless leg -continue ropinirole CODE: Full Proxy: Jagdish Hill, spouse I have utilized all available resources to reconcile the patient's home medications Time Spent With Patient Critical Care time: I spent a total of [] minutes of critical care time on this patient's care today; this time is exclusive of procedural time. Quality MIPS - Admit I confirm the patient?s Advance Care Plan is present, Code status is documented, Surrogate decision maker is in patient?s record [If Yes, STOP here]: Yes
[2021-11-14 08:30] LABS: Troponin I < 0.012 ng/mL (0.01-0.034)
[2021-11-14] MEDS: APIXABAN 5 MG TABLET 10 MG PO ×2 (09:26→21:05)
[2021-11-14] MEDS: FUROSEMIDE 40 MG/4 ML VIAL IV (09:26)
[2021-11-14] MEDS: ACETAMINOPHEN 325 MG TABLET 650 MG PO ×2 (09:33→15:02)
--- NOTE | 2021-11-14 16:48 | P.PN_ITS ---
Subjective Subjective Interval history: The patient reports feeling overall well, other than a sharp right-sided CP that is likely related to her PE. She denies any substernal, pressure CP, or any jaw/arm paresthesias or any nausea or diaphoresis. She does endorse having PE's in the remote past and was appropriately anticoagulated. She endorses being worked up for hereditary procoagulation disorders in the past, but results were unremarkable. Exam Vital Signs (past 8 hours): - 11/14/21 09:00 11/14/21 09:29 11/14/21 09:30 Temperature Pulse Rate 58 L 79 75 Respiratory Rate 27 H 35 H 34 H Blood Pressure 147/74 H 160/75 H Pulse Oximetry 94 93 94 11/14/21 10:00 11/14/21 10:02 11/14/21 10:30 Temperature Pulse Rate 95 H 81 79 Respiratory Rate 48 H 40 H 27 H Blood Pressure 218/91 H Pulse Oximetry 92 93 90 L 11/14/21 10:31 11/14/21 11:00 11/14/21 11:30 Temperature Pulse Rate 80 85 89 Respiratory Rate 21 31 H Blood Pressure 171/70 H Pulse Oximetry 91 93 93 11/14/21 12:00 11/14/21 12:30 11/14/21 12:54 Temperature Pulse Rate 89 86 83 Respiratory Rate 22 Blood Pressure 143/64 H Pulse Oximetry 93 94 95 11/14/21 12:56 11/14/21 13:00 11/14/21 13:30 Temperature Pulse Rate 95 H 95 H 80 Respiratory Rate 16 26 H 27 H Blood Pressure 143/64 H Pulse Oximetry 96 92 94 11/14/21 13:31 11/14/21 14:00 11/14/21 14:01 Temperature Pulse Rate 80 78 80 Respiratory Rate 26 H Blood Pressure 144/65 H 164/68 H Pulse Oximetry 94 93 94 11/14/21 14:45 Temperature 97.8 F Pulse Rate 78 Respiratory Rate 18 Blood Pressure 160/62 H Pulse Oximetry 95 Oxygen Delivery Method Room Air Oxygen Flow Rate 0 Const Other: Patient laying in bed comfortably upon my entering the room, in no apparent di stress, with at bedside, and larger body habitus noted Eyes Other: No scleral icterus appreciated Resp Other: Lungs clear to auscultation bilaterally Cardio Other: RRR, S1 and S2 normal with no extra heart sounds or murmurs appreciated GI Other: Soft, non-distended, non-tender, bowel sounds present Skin Other: No grossly abnormal skin lesions noted Extrem Other: Palpable dorsalis pedis pulses bilaterally, and equal Objective Labs Result Diagrams: 11/13/21 18:40 11/13/21 18:40 Labs: Laboratory Results - last 24 hr 11/13/21 11/13/21 11/13/21 18:40 18:40 18:40 WBC 7.3 RBC 4.41 Hgb 13.4 Hct 39.0 MCV 88.4 MCH 30.3 MCHC 34.3 RDW 14.7 Plt Count 207 Neut % (Auto) 66.0 Lymph % (Auto) 26.8 [place] % (Auto) 5.9 Eos % (Auto) 0.8 L Baso % (Auto) 0.5 Neut # (Auto) 4800 Lymph # (Auto) 2000 [place] # (Auto) 400 Eos # (Auto) 100 Baso # (Auto) 0 Sodium 140 Potassium 3.4 Chloride 102 Carbon Dioxide 30 BUN 17 Creatinine 0.94 Estimated GFR > 60 BUN/Creatinine Ratio 18.1 Glucose 94 Calcium 9.0 Magnesium 1.8 Total Bilirubin 0.4 AST 26 ALT 29 Alkaline Phosphatase 81 Total Creatine Kinase 69 CK-MB (CK-2) TNP CK-MB (CK-2) Rel Index TNP Troponin I < 0.012 NT-Pro-B Natriuret Pep 53 Total Protein 7.8 Albumin 4.4 Globulin 3.4 Albumin/Globulin Ratio 1.3 Lipase 125 SARS-CoV-2 (PCR) 11/13/21 11/14/21 21:35 07:50 WBC RBC Hgb Hct MCV MCH MCHC RDW Plt Count Neut % (Auto) Lymph % (Auto) [place] % (Auto) Eos % (Auto) Baso % (Auto) Neut # (Auto) Lymph # (Auto) [place] # (Auto) Eos # (Auto) Baso # (Auto) Sodium Potassium Chloride Carbon Dioxide BUN Creatinine Estimated GFR BUN/Creatinine Ratio Glucose Calcium Magnesium Total Bilirubin AST ALT Alkaline Phosphatase Total Creatine Kinase CK-MB (CK-2) CK-MB (CK-2) Rel Index Troponin I < 0.012 NT-Pro-B Natriuret Pep Total Protein Albumin Globulin Albumin/Globulin Ratio Lipase SARS-CoV-2 (PCR) Negative [facility] Medical History Asthma Hyperlipidemia Hypertension Restless leg syndrome Surgical History Status post cholecystectomy Social History household members: spouse Smoking Status: Former smoker Assessment & Plan Assessment & Plan narrative: Ms. García is a 66yo female with a remote tobacco smoking hx resulting in emphysema, hx of PE's and therapeutic anticoagulation, and REINA on CPAP that presented with SOB. 1. Acute on chronic hypoxemic respiratory failure, likely secondary to small, RML/RLL PE's, without lab or imaging evidence of right heart strain - PO Eliquis 10 mg bid on-board for 7 days, and then PO Eliquis 5 mg bid afterward 2. COPD, chronic - Continue home inhaler therapy 3. Morbid obesity, class 3, with BMI 45 - Likely contributing to procoagulation propensity, along with adversely affecting all other comorbidities 4. RUL small lung mass, stable - Followed regularly by supervisor poultry hatchery outpatient, and pt told it is likely residual scar tissue from old PE's 5. Hypertension - Resume home anti-HTN medication 6. Restless leg - Resume home ropinirole 7. REINA on CPAP, stable CODE: Full Code Proxy: Jagdish Hill, spouse I have utilized all available resources to obtain, update, or confirm the patient's current medications. Time Spent With Patient Critical Care time: I spent a total of [] minutes of critical care time on this patient's care today; this time is exclusive of procedural time. Quality MIPS - Admit I confirm the patient?s Advance Care Plan is present, Code status is documented, Surrogate decision maker is in patient?s record [If Yes, STOP here]: Yes
[2021-11-14] MEDS: LOSARTAN 50 MG TABLET 100 MG PO (17:45)
[2021-11-14] MEDS: ROPINIROLE 1 MG TABLET 2 MG PO ×2 (17:45→21:05)
[2021-11-14] MEDS: hydroCHLOROthiazide 25 MG TABLET PO (17:46)
[2021-11-14] MEDS: PANTOPRAZOLE DR 40 MG TABLET PO (17:47)
--- NOTE | 2021-11-14 19:44 | PC.NURSE ---
Pt arrived to rm 221 from ED. She c/o back pain from ED bed improved with prn tylenol. Pt placed on telemetry she reports mild intermittent R chest pain under my breast in region where pulmonary embolism are located. MD at bedside explaining plan for observing patient overnight and anticipate discharge tomorrow. Pt independent in room on RA, tolerating dinner well. She denies any complaints this evening. Continuous monitoring.
[2021-11-14] MEDS: HYDROCODONE/ACET 5/325 TABLET 1 TAB PO (21:05)
[2021-11-14 21:06] LABS: BUN Creatinine Ratio 18.4 (6-22); Blood Urea Nitrogen 16 mg/dL (7-17); Calcium 9.8 mg/dL (8.4-10.2); Carbon Dioxide 26 mmol/L (22-32); Chloride 101 mmol/L (98-107); Estimated Glomerular Filt Rate > 60 mL/min (>60); Glucose 175 mg/dL (80-110); HEMOLYSIS < 15 (0-50); Potassium 4.1 mmol/L (3.4-5.1); Sodium 140 mmol/L (137-145)
[2021-11-14] MEDS: ZOLPIDEM 5 MG TABLET 10 MG PO (21:07)
[2021-11-14 21:24] LABS: Add Manual Diff / Slide Review NO; Basophils Absolute Auto 0 /uL (0-100); Basophils Percent Auto 0.4 % (0-2); Eosinophils Absolute Auto 0 /uL (0-450); Eosinophils Percent Auto 0.1 % (2-4); Hemoglobin 14.1 g/dL (12.0-16.0); Lymphocytes Absolute Auto 1100 /uL (1100-4500); Lymphocytes Percent Auto 12.6 % (25-40); Mean Corpuscular HGB Conc 32.7 % (30-36); Mean Corpuscular Hemoglobin 29.7 PG (26-34); Mean Corpuscular Volume 90.6 fL (80-100); Monocytes Absolute Auto 100 /uL (0-900); Monocytes Percent Auto 0.9 % (3-14); Neutrophils Absolute Auto 7200 /uL (1500-7000); Platelet Count 232 X10^3/uL (150-400); Red Blood Cell Count 4.74 X10^6/uL (4.0-5.2); Red Cell Distribution Width 14.9 % (11.6-14.8); White Blood Cell Count 8.4 X10^3/uL (4.5-11.0)
[2021-11-15 06:00] VITALS: BP 134/61; PULSE 63; RESP 20; TEMP 36.4; O2SAT 96
--- NOTE | 2021-11-15 06:43 | PC.NURSE ---
Pt requesting not to be woken up for her protonix this am. will let the oncoming nurse know.
[2021-11-15 07:00] VITALS: O2SAT 93
[2021-11-15] MEDS: ATORVASTATIN 20 MG TABLET 40 MG PO (08:19)
[2021-11-15] MEDS: APIXABAN 5 MG TABLET 10 MG PO (08:19)
[2021-11-15] MEDS: PANTOPRAZOLE DR 40 MG TABLET PO (08:19)
[2021-11-15 08:20] VITALS: BP 134/61; PULSE 63
[2021-11-15] MEDS: LOSARTAN 50 MG TABLET 100 MG PO (08:20)
[2021-11-15] MEDS: FUROSEMIDE 40 MG/4 ML VIAL IV (08:20)
[2021-11-15] MEDS: SERTRALINE 50 MG TABLET 200 MG PO (08:22)
[2021-11-15] MEDS: hydroCHLOROthiazide 25 MG TABLET PO (08:22)
[2021-11-15 11:30] VITALS: O2SAT 93
--- NOTE | 2021-11-15 13:06 | PC.NURSE ---
Pt is A&OX3, napping with CPAP machine. She awakens VSS, afebrile on RA. She denies pain or SOB. Upon rounding MD clears patient for discharge home. She verbalizes understanding of her discharge plan, medications, follow up as well as worsening symptoms. She is escorted via wheel chair to private vehicle with her with all of her belongings, including her CPAP machine for discharge home.
--- NOTE | 2021-11-15 13:08 | PM.PN.1 ---
Subjective Subjective Interval history: The patient reports feeling overall well this morning. She feels back to her baseline health. She is aware that she will require Eliquis for at least 6 months, if not indefinitely, and that she will need to follow-up with a busperson or director hr communications regarding duration of therapy. Exam Vital Signs (past 8 hours): - 11/15/21 06:00 11/15/21 07:00 11/15/21 08:20 Temperature 97.5 F L Pulse Rate 63 63 Respiratory Rate 20 Blood Pressure 134/61 134/61 Pulse Oximetry 96 93 11/15/21 11:30 Temperature Pulse Rate Respiratory Rate Blood Pressure Pulse Oximetry 93 Oxygen Delivery Method Room Air Oxygen Flow Rate 0 Narrative Exam Narrative: Const Other: Patient laying in bed comfortably upon my entering the room, in no apparent distress, with at bedside, and larger body habitus noted Eyes Other: No scleral icterus appreciated Resp Other: Lungs clear to auscultation bilaterally Cardio Other: RRR, S1 and S2 normal with no extra heart sounds or murmurs appreciated GI Other: Soft, non-distended, non-tender, bowel sounds present Skin Other: No grossly abnormal skin lesions noted Extrem Other: Palpable dorsalis pedis pulses bilaterally, and equal Objective Labs Result Diagrams: 11/14/21 07:50 11/14/21 07:50 Labs: Laboratory Results - last 24 hr 11/14/21 11/14/21 07:50 07:50 WBC 8.4 RBC 4.74 Hgb 14.1 Hct 43.0 MCV 90.6 MCH 29.7 MCHC 32.7 RDW 14.9 H Plt Count 232 Neut % (Auto) 86.0 H D Lymph % (Auto) 12.6 L [place] % (Auto) 0.9 L Eos % (Auto) 0.1 L Baso % (Auto) 0.4 Neut # (Auto) 7200 H Lymph # (Auto) 1100 [place] # (Auto) 100 Eos # (Auto) 0 Baso # (Auto) 0 Sodium 140 Potassium 4.1 Chloride 101 Carbon Dioxide 26 BUN 16 Creatinine 0.87 Estimated GFR > 60 BUN/Creatinine Ratio 18.4 Glucose 175 H Calcium 9.8 PFSH Medical History Asthma Hyperlipidemia Hypertension Restless leg syndrome Surgical History Status post cholecystectomy Social History household members: spouse Smoking Status: Former smoker Assessment & Plan Assessment & Plan narrative: Ms. García is a 66yo female with a remote tobacco smoking hx resulting in emphysema, hx of PE's and therapeutic anticoagulation, and REINA on CPAP that presented with SOB. 1. Acute on chronic hypoxemic respiratory failure, likely secondary to small, RML/RLL PE's, without lab or imaging evidence of right heart strain ?- PO Eliquis 10 mg bid on-board for 7 days, and then PO Eliquis 5 mg bid afterward 2. COPD, chronic ?- Continue home inhaler therapy 3. Morbid obesity, class 3, with BMI 45 ?- Likely contributing to procoagulation propensity, along with adversely affecting all other comorbidities 4. RUL small lung mass, stable ?- Followed regularly by director hr communications outpatient, and pt told it is likely residual scar tissue from old PE's 5. Hypertension ?- Resume home anti-HTN medication 6. Restless leg ?- Resume home ropinirole 7. REINA on CPAP, stable Time Spent With Patient Critical Care time: I spent a total of [] minutes of critical care time on this patient's care today; this time is exclusive of procedural time.
--- NOTE | 2021-11-15 13:10 | P.DS_ITS ---
History of Present Illness History of Present Illness Chief complaint: chest pain, states fluid build up in lungs Narrative: Ms. García is a 66W with PMH HTN, HL, COPD on nighttime O2, REINA, hx PE, possible CHF who presents to the hospital with shortness of breath. She states that she has had chronic shortness of breath for months, worse since August 2021. She has seen her PCP and has been started on lasix, and has lost 10lb with no significant improvement in respiratory symptoms. ECHO has been pending. She has a history of PE, she is a former smoker and has COPD. She uses CPAP with oxygen at night, she has oxygen concentrator that is portable but does not consistently use this. She has noted worsening tightness in her chest and shortness of breath with exertion. No cough, fevers/chills, or wheezing. Her PCP recommended her come to the ED. Her last stress test was over a decade ago. In the ED workup was done, vitals notable for tachypnea, she desats to the 80s with exertion. Labs notable for WBC 7.3, creatinine 0.94. Trop negative. BNP 53. COVID negative. CTA showed suspected right middle and lower lobe small PE. Mild emphysema. Multiple chronic lung masses in the right upper lobe that per report were stable. She was ordered for steroids and apixaban and admitted for further treatment. Family history - father, multiple brothers with CAD Written by admitting provider. Discharge Providers Provider Date of admission: 11/13/21 23:12 Discharge Date: 11/15/21 Primary care physician: Nickie Erwin MD Discharge provider: Ольга Villa MD Summary Hospital Course Discharge Diagnosis: Ms. García is a 66yo female with a remote tobacco smoking hx resulting in emphysema, hx of PE's and therapeutic anticoagulation, and REINA on CPAP that presented with SOB. 1. Acute on chronic hypoxemic respiratory failure, likely secondary to small, RML/RLL PE's, without lab or imaging evidence of right heart strain ?- PO Eliquis 10 mg bid on-board for 7 days, and then PO Eliquis 5 mg bid afterward 2. COPD, chronic ?- Continue home inhaler therapy 3. Morbid obesity, class 3, with BMI 45 ?- Likely contributing to procoagulation propensity, along with adversely affecting all other comorbidities 4. RUL small lung mass, stable ?- Followed regularly by bulk plant supervisor outpatient, and pt told it is likely residual scar tissue from old PE's 5. Hypertension ?- Resume home anti-HTN medication 6. Restless leg ?- Resume home ropinirole 7. REINA on CPAP, stable Exam Vital Signs (past 8 hours): - 11/15/21 06:00 11/15/21 07:00 11/15/21 08:20 Temperature 97.5 F L Pulse Rate 63 63 Respiratory Rate 20 Blood Pressure 134/61 134/61 Pulse Oximetry 96 93 11/15/21 11:30 Temperature Pulse Rate Respiratory Rate Blood Pressure Pulse Oximetry 93 Oxygen Delivery Method Room Air Oxygen Flow Rate 0 Objective Labs Result Diagrams: 11/14/21 07:50 11/14/21 07:50 Labs: Laboratory Results - last 24 hr 11/14/21 11/14/21 07:50 07:50 WBC 8.4 RBC 4.74 Hgb 14.1 Hct 43.0 MCV 90.6 MCH 29.7 MCHC 32.7 RDW 14.9 H Plt Count 232 Neut % (Auto) 86.0 H D Lymph % (Auto) 12.6 L [place] % (Auto) 0.9 L Eos % (Auto) 0.1 L Baso % (Auto) 0.4 Neut # (Auto) 7200 H Lymph # (Auto) 1100 [place] # (Auto) 100 Eos # (Auto) 0 Baso # (Auto) 0 Sodium 140 Potassium 4.1 Chloride 101 Carbon Dioxide 26 BUN 16 Creatinine 0.87 Estimated GFR > 60 BUN/Creatinine Ratio 18.4 Glucose 175 H Calcium 9.8 PFSH Medical History Asthma Hyperlipidemia Hypertension Restless leg syndrome Surgical History Status post cholecystectomy Social History household members: spouse Smoking Status: Former smoker Discharge Assessment & Plan Assessment and Plan Assessment: Ms. García is a 66yo female with a remote tobacco smoking hx resulting in emphysema, hx of PE's and therapeutic anticoagulation, and REINA on CPAP that presented with SOB. 1. Acute on chronic hypoxemic respiratory failure, likely secondary to small, RML/RLL PE's, without lab or imaging evidence of right heart strain ?- PO Eliquis 10 mg bid on-board for 7 days, and then PO Eliquis 5 mg bid afterward 2. COPD, chronic ?- Continue home inhaler therapy 3. Morbid obesity, class 3, with BMI 45 ?- Likely contributing to procoagulation propensity, along with adversely affecting all other comorbidities 4. RUL small lung mass, stable ?- Followed regularly by bulk plant supervisor outpatient, and pt told it is likely residual scar tissue from old PE's 5. Hypertension ?- Resume home anti-HTN medication 6. Restless leg ?- Resume home ropinirole 7. REINA on CPAP, stable Discharge Plan Discharge Plan Patient Disposition: Home Discharge orders & Medications Prescriptions: New Eliquis 5 mg Tablet 10 mg PO BID 90 Days Qty: 360 4RF Rx Instructions: Take, by mouth, apixaban (Eliquis) 10 milligrams, every 12 hours, for 7 days, starting from November 14, 2021. After 7 days, take, by mouth, apixaban (Eliquis) 5 milligrams, every 12 hours. Continued atorvastatin 40 mg tablet 40 mg PO DAILY 0RF ropinirole 1 mg tablet 2 mg PO ONCE HS 0RF sertraline 100 mg tablet 200 mg PO DAILY 0RF potassium chloride 20 mEq tablet,ER particles/crystals 20 meq PO BID 0RF pantoprazole 40 mg tablet,delayed release (DR/EC) 40 mg PO BID 0RF Rx Instructions: takes before breakfast and before dinner at 1700 hydrochlorothiazide 25 mg tablet 25 mg PO DAILY 0RF losartan 100 mg tablet 100 mg PO DAILY 0RF Advair HFA 230-21 mcg/actuation HFA aerosol inhaler 1 inh INHALATION BID 0RF ondansetron 4 mg tablet,disintegrating 4 mg PO Q6H PRN (Reason: nausea and vomiting) Qty: 14 0RF metoclopramide HCl [Reglan] 10 mg tablet 10 mg PO Q6H PRN (Reason: nausea and vomiting) Qty: 10 0RF hydrocodone-acetaminophen 5-325 mg tablet 1 tab PO BEDTIME PRN (Reason: pain) Qty: 10 0RF Label Comments: pt hasnt had an active prescription for this in >1 month aripiprazole [Abilify] 2 mg Tablet 2 mg PO DAILY 0RF ropinirole 1 mg Tablet 2 mg PO DAILY 0RF zolpidem [Ambien] 5 mg Tablet 5 mg PO BEDTIME PRN (Reason: Insomnia) 0RF Rx Instructions: pt states she takes 1-2 tablets each night Follow up/Referrals: Nickie Erwin MD [Primary Care Provider] - Visit Report/Discharge Packet Instructions: Pulmonary Embolism Discharge Data Primary Care Provider: Nickie Erwin Attending Provider: Francisco Norton
== END 2021-11-15 13:50 | disposition home or self-care (01) ==
LOC: ED 22:43 → AC 23:13
PROVIDERS: Admitting Provider Internal Medicine; Emergency Provider Emergency Medicine; Family Provider Family Medicine; PCP Internal Medicine; Referring Provider Emergency Medicine; Visit Provider Internal Medicine
DX: J96.01 Acute respiratory failure with hypoxia (principal); R07.9 Chest pain, unspecified; J44.9 Chronic obstructive pulmonary disease, unspecified; R91.8 Other nonspecific abnormal finding of lung field; I10 Essential (primary) hypertension; E78.5 Hyperlipidemia, unspecified; G47.33 Obstructive sleep apnea (adult) (pediatric); E66.01 Morbid (severe) obesity due to excess calories; Z68.42 Body mass index [BMI] 45.0-49.9, adult; G25.81 Restless legs syndrome; Z86.711 Personal history of pulmonary embolism; Z99.81 Dependence on supplemental oxygen; Z79.01 Long term (current) use of anticoagulants; Z87.891 Personal history of nicotine dependence; Z20.822 Contact with and (suspected) exposure to COVID-19
CPT/HCPCS: 36415; 71045; 71275; 80048; 80053; 81003; 82550; 83690; 83735; 83880; 84484; 85025; 87635; 93005; 93306; 94760; 96374; 96375; 99284; 99285; C9803; G0378; J1200; J1940; J2930; Q9967

== ENCOUNTER 2023-02-23 12:22 | Emergency (ER) | payer MEDICARE, OTHER, SELFPAY ==
[2021-11-14 15:05] VITALS: BMI 45.3
[2023-02-23] VITALS (20 sets, daily range): BP systolic 108–165; BP diastolic 54–99; PULSE 54–63; RESP 14–36; TEMP 36.6; O2SAT 91–96; BMI 44.6
--- NOTE | 2023-02-23 12:32 | DI.RAD.S_ITS ---
PROCEDURE: XR CHEST 1V INDICATIONS: Shortness of breath TECHNIQUE: One view of the chest was acquired. COMPARISON: [facility], CR, XR CHEST 1V, 11/13/2021, 18:54. FINDINGS: Surgical changes and devices: None. Lungs and pleura: Patchy left basilar airspace opacity. Hazy opacities of the bilateral costophrenic angles likely representing small pleural effusions. Mediastinum: Mediastinal contours appear normal. Heart size is normal. Bones and chest wall: No suspicious bony lesions. Overlying soft tissues appear unremarkable. IMPRESSION: Suspected small bilateral pleural effusions with patchy left basilar opacity which may represent atelectasis versus focal airspace disease. Dictated by: Yon Rdz M.D. on 02/23/2023 at 13:21 Approved by: Yon Rdz M.D. on 02/23/2023 at 13:22
--- NOTE | 2023-02-23 13:09 | DI.CT.S_ITS ---
PROCEDURE: CT ANGIO CHEST PE PROTOCOL INDICATIONS: sob, chest pain, hx PE TECHNIQUE: After the administration of intravenous contrast, 2 mm thick sections acquired from the pulmonary apices to the posterior costophrenic angles. 3-dimensional maximum intensity projection (MIP) coronal and sagittal reformats were then acquired through the thorax. For radiation dose reduction, the following was used: automated exposure control, adjustment of mA and/or kV according to patient size. COMPARISON: [facility], CT, CT ANGIO CHEST PE PROTOCOL, 09/04/2019, 13:35. [facility], CT, CT ANGIO CHEST PE PROTOCOL, 11/13/2021, 20:42. FINDINGS: Image quality: Excellent. Pulmonary arteries: Pulmonary arteries are normal in size, and demonstrate no intraluminal filling defects to suggest central pulmonary embolism. Lungs and pleura: Lungs are clear. No pleural effusions or pneumothorax. Central and peripheral airways are patent. Mild bronchial thickening. Stable perifissural nodularity along the right major fissure compared with 2019, most likely benign. Mediastinum: Heart size is normal, without pericardial effusion. No mediastinal or hilar adenopathy. Thoracic aorta is normal in caliber and enhancement. Esophagus is normal in caliber, without hiatal hernia. Bones and chest wall: No suspicious bony lesions. Ribs and thoracic spine appear intact throughout. Thyroid gland is unremarkable. No axillary or supraclavicular adenopathy. Abdomen: Visualized upper abdominal solid organs appear normal in the early arterial phase of enhancement. IMPRESSION: No pulmonary embolus. Bronchial thickening, most consistent with infectious or inflammatory bronchitis. Dictated by: Jamaal Sofia M.D. on 02/23/2023 at 15:52 Approved by: Jamaal Sofia M.D. on 02/23/2023 at 15:56
--- NOTE | 2023-02-23 13:36 | ED_ITS ---
HPI - SOB/Dyspnea General Chief Complaint: Shortness of Breath/Dyspnea Stated Complaint: SOB/chest pains/HX PE Time Seen by Provider: 02/23/23 13:08 Source: patient and family Mode of arrival: Ambulatory Limitations: no limitations History of Present Illness HPI Narrative: This is a 67-year-old female with history of hypertension, dyslipidemia, prior pulmonary emboli currently on Eliquis. Patient states she has had increasing shortness of breath for the past month worse in the last 2 or 3 days. She describes some left sided and substernal chest pressure with radiation to her back. She states it feels similar to when she had blood clots in the past. No syncope, she is not had any diaphoresis. No nausea or vomiting. No new swelling in her extremities. No fevers, or nasal congestion. She has had a mi ld cough which has been nonproductive. Patient states she is taking Eliquis she is taking daily. She states she had reaction to iodine contrast she was pretreated for her last imaging and did well. She is allergic to Tagamet. No tobacco, alcohol or illicit. [place] Related Data Home Medications Medication Instructions Recorded Confirmed atorvastatin 40 mg tablet 40 mg PO DAILY 09/22/19 11/14/21 fluticasone propionate 230 1 inh inhalation BID 09/22/19 11/14/21 mcg-salmeterol 21 mcg/actuation HFA inhaler (Advair HFA) hydrochlorothiazide 25 mg tablet 25 mg PO DAILY 09/22/19 11/14/21 losartan 100 mg tablet 100 mg PO DAILY 09/22/19 11/14/21 pantoprazole 40 mg tablet,delayed 40 mg PO BID 09/22/19 11/14/21 release potassium chloride 20 mEq 20 meq PO BID 09/22/19 11/14/21 tablet,extended release(part/cryst) ropinirole 1 mg tablet 2 mg PO ONCE HS 09/22/19 11/14/21 sertraline 100 mg tablet 200 mg PO DAILY 09/22/19 11/14/21 aripiprazole 2 mg tablet (Abilify) 2 mg PO DAILY 11/14/21 11/14/21 ropinirole 1 mg tablet 2 mg PO DAILY 11/14/21 11/14/21 zolpidem 5 mg tablet (Ambien) 5 mg PO BEDTIME PRN Insomnia 11/14/21 11/14/21 Previous Rx's Medication Instructions Recorded metoclopramide HCl 10 mg tablet 10 mg PO Q6H PRN nausea and 09/22/19 (Reglan) vomiting #10 tabs ondansetron 4 mg disintegrating 4 mg PO Q6H PRN nausea and 09/22/19 tablet vomiting #14 tabs hydrocodone 5 mg-acetaminophen 325 1 tab PO BEDTIME PRN pain #10 tabs 04/25/21 mg tablet apixaban 5 mg tablet (Eliquis) 10 mg PO BID 90 days #360 tabs 11/15/21 azithromycin 250 mg tablet See Rx Instructions PO .COMPLEX #6 02/23/23 tabs prednisone 10 mg tablets in a dose See Rx Instructions PO .COMPLEX 02/23/23 pack #15 ea Allergies Allergy/AdvReac Type Severity Reaction Status Date / Time cimetidine [CIMETIDINE] Allergy Mild HIVES Verified 04/25/21 15:19 Iodinated Contrast Media AdvReac Severe Difficulty Verified 02/23/23 12:29 Breathing Review of Systems Review of Systems ROS Unobtainable: All systems reviewed & are unremarkable except as noted in HPI and below Patient History Medical History Asthma Hyperlipidemia Hypertension Restless leg syndrome Surgical History Status post cholecystectomy Social History household members: spouse Smoking Status: Former smoker Smoking Status: Former smoker alcohol intake frequency: holidays/special occasions only Substance Use Type: does not use Exam Narrative Exam Narrative: GENERAL: Alert and oriented x three, obese female in mild distress. HEENT: Head normocephalic, atraumatic, EOMI, pupils reactive, face symmetric, moist mucous membranes NECK: Supple, full range of motion CARDIOVASCULAR: Regular rate and rhythm without murmurs, rubs or gallops. No JVD. No swelling bilateral lower extremities. RESPIRATORY: Breath sounds equal bilaterally, no wheezes rales or rhonchi. No tachypnea. No accessory muscle use. Speaks in full sentences. ABDOMEN: Soft, nontender. Normoactive bowel sounds all 4 quadrants. No guarding or rebound, rigidity, no mass : No CVA tenderness EXTREMITIES: Normal range of motion, no clubbing or edema. Neurovascularly intact NEUROLOGICAL: Cranial nerves II through XII grossly intact. Moving all extremities SKIN: Warm, dry, no petechiae, no rashes or lesions. Initial Vital Signs Initial Vital Signs: Vital Signs Temperature 97.8 F 02/23/23 12:24 Pulse Rate 58 L 02/23/23 12:24 Respiratory Rate 22 02/23/23 12:24 Blood Pressure 165/82 H 02/23/23 12:24 Pulse Oximetry 93 02/23/23 12:24 Oxygen Delivery Method Room Air 02/23/23 12:24 Course Orders Ordered: ED Orders 02/23/23 12:32 XR chest 1V Stat EKG-12 Lead Stat Measure peak expiratory flow ONCE RT Consult Eval and Treat NOW 02/23/23 13:09 CT angio chest PE protocol Stat 02/23/23 14:40 Complete Blood Count AUTO DIFF Stat Comprehensive Metabolic Panel Stat Lactate (Lactic Acid) Stat NT-proBNP (BNP-Adult 18+) Stat Prothrombin Time INR Stat Troponin I Stat 02/23/23 16:40 Trop I [Troponin I] Stat 02/23/23 16:55 COVID19 -Nasal RAPID Stat 02/23/23 17:09 EKG-12 Lead Routine Discontinued Medications Diphenhydramine HCl (Diphenhydramine 50 Mg/Ml Vial) 50 mg IV NOW ONE Stop: 02/23/23 13:15 Last Admin: 02/23/23 14:33 Dose: 50 mg Documented By: ST Methylprednisolone (Methylprednisolone 125 Mg/2 Ml Vial) 125 mg IV NOW ONE Stop: 02/23/23 13:15 Last Admin: 02/23/23 14:32 Dose: 125 mg Documented By: ST Nitroglycerin (Nitroglycerin 0.4 Mg Sl Tab) 0.4 mg SL NOW ONE Stop: 02/23/23 13:36 Last Admin: 02/23/23 14:32 Dose: 0.4 mg Documented By: ST Potassium Chloride (Potassium Chloride 20 Meq/15 Ml Udc) 40 meq PO NOW ONE Stop: 02/23/23 15:33 Last Admin: 02/23/23 15:40 Dose: 40 meq Documented By: ST Vital Signs Vital signs: Vital Signs - 8 hr 02/23/23 12:24 02/23/23 14:08 02/23/23 14:09 Temperature 97.8 F Pulse Rate 58 L 57 L Respiratory Rate 22 Blood Pressure 165/82 H Pulse Oximetry 93 95 93 Oxygen Delivery Method Room Air 02/23/23 14:09 02/23/23 14:16 02/23/23 14:16 Temperature Pulse Rate 54 L Respiratory Rate Blood Pressure 108/82 156/67 H Pulse Oximetry 94 Oxygen Delivery Method 02/23/23 14:30 02/23/23 15:00 02/23/23 15:30 Temperature Pulse Rate 54 L 62 Respiratory Rate 19 36 H Blood Pressure 143/99 H Pulse Oximetry 94 93 Oxygen Delivery Method 02/23/23 15:30 02/23/23 15:45 02/23/23 15:45 Temperature Pulse Rate 55 L 57 L Respiratory Rate 14 22 Blood Pressure 146/78 H Pulse Oximetry 94 96 Oxygen Delivery Method 02/23/23 16:00 02/23/23 16:00 02/23/23 16:15 Temperature Pulse Rate 57 L 63 Respiratory Rate 27 H 19 Blood Pressure 122/54 L Pulse Oximetry 93 93 Oxygen Delivery Method 02/23/23 16:15 02/23/23 16:30 02/23/23 16:30 Temperature Pulse Rate 61 Respiratory Rate 22 Blood Pressure 151/69 H 118/68 Pulse Oximetry 91 Oxygen Delivery Method 02/23/23 16:45 02/23/23 16:45 02/23/23 17:00 Temperature Pulse Rate 61 Respiratory Rate Blood Pressure 116/56 L 117/57 L Pulse Oximetry 92 Oxygen Delivery Method 02/23/23 17:00 02/23/23 17:15 02/23/23 17:15 Temperature Pulse Rate 62 61 Respiratory Rate 16 Blood Pressure 144/69 H Pulse Oximetry 93 93 Oxygen Delivery Method 02/23/23 18:36 02/23/23 17:30 02/23/23 17:30 Temperature Pulse Rate 59 L Respiratory Rate Blood Pressure 126/60 Pulse Oximetry 92 Oxygen Delivery Method Room Air 02/23/23 17:45 02/23/23 17:45 02/23/23 18:00 Temperature Pulse Rate 60 57 L Respiratory Rate 16 Blood Pressure 124/64 Pulse Oximetry 94 Oxygen Delivery Method 02/23/23 18:01 02/23/23 18:01 02/23/23 18:15 Temperature Pulse Rate 55 L 56 L Respiratory Rate 28 H Blood Pressure 119/67 Pulse Oximetry 94 95 Oxygen Delivery Method 02/23/23 18:15 02/23/23 18:30 02/23/23 18:30 Temperature Pulse Rate 63 Respiratory Rate Blood Pressure 118/57 L 125/60 Pulse Oximetry 93 Oxygen Delivery Method MDM - SOB/Dyspnea Lab Data 02/23/23 14:40 02/23/23 14:40 Labs: Lab Results 02/23/23 02/23/23 02/23/23 Range/Units 14:40 14:40 14:40 WBC 8.2 (4.5-11.0) X10^3/uL RBC 4.26 (4.0-5.2) X10^6/uL Hgb 13.1 (12.0-16.0) g/dL Hct 37.7 (36-46) % MCV 88.4 (80-100) fL MCH 30.6 (26-34) PG MCHC 34.6 (30-36) % RDW 14.1 (11.6-14.8) % Plt Count 187 (150-400) X10^3/uL Neut % (Auto) 75.4 H (50-75) % Lymph % (Auto) 18.6 L (25-40) % [place] % (Auto) 4.7 (3-14) % Eos % (Auto) 0.9 L (2-4) % Baso % (Auto) 0.4 (0-2) % Neut # (Auto) 6200 (6657-1059) /uL Lymph # (Auto) 1500 (8914-8476) /uL [place] # (Auto) 400 (0-900) /uL Eos # (Auto) 100 (0-450) /uL Baso # (Auto) 0 (0-100) /uL PT 14.1 H (10.1-12.7) SECONDS INR 1.2 (0.9-1.3) Sodium 138 (137-145) mmol/L Potassium 2.6 L* (3.4-5.1) mmol/L Chloride 99 (98-107) mmol/L Carbon Dioxide 32 (22-32) mmol/L BUN 14 (7-17) mg/dL Creatinine 0.72 (0.52-1.04) mg/dL Estimated GFR > 60 (>60) mL/min BUN/Creatinine Ratio 19.4 (6-22) Glucose 118 H (80-110) mg/dL Lactate (0.7-2.1) mmol/L Calcium 9.1 (8.4-10.2) mg/dL Total Bilirubin 0.5 (0.2-1.3) mg/dL AST 26 (14-36) IU/L ALT 29 (<35) IU/L Alkaline Phosphatase 68 (38-126) U/L Troponin I < 0.012 (0.01-0.034) ng/mL NT-Pro-B Natriuret Pep 53 (<125) pg/mL Total Protein 7.1 (6.3-8.2) g/dL Albumin 4.1 (3.5-5.0) g/dL Globulin 3.0 (1.7-4.1) g/dL Albumin/Globulin Ratio 1.4 (1.0-2.8) SARS-CoV-2 (PCR) (Negative) 02/23/23 02/23/23 02/23/23 Range/Units 14:40 16:40 16:55 WBC (4.5-11.0) X10^3/uL RBC (4.0-5.2) X10^6/uL Hgb (12.0-16.0) g/dL Hct (36-46) % MCV (80-100) fL MCH (26-34) PG MCHC (30-36) % RDW (11.6-14.8) % Plt Count (150-400) X10^3/uL Neut % (Auto) (50-75) % Lymph % (Auto) (25-40) % [place] % (Auto) (3-14) % Eos % (Auto) (2-4) % Baso % (Auto) (0-2) % Neut # (Auto) (3350-0224) /uL Lymph # (Auto) (9228-4725) /uL [place] # (Auto) (0-900) /uL Eos # (Auto) (0-450) /uL Baso # (Auto) (0-100) /uL PT (10.1-12.7) SECONDS INR (0.9-1.3) Sodium (137-145) mmol/L Potassium (3.4-5.1) mmol/L Chloride (98-107) mmol/L Carbon Dioxide (22-32) mmol/L BUN (7-17) mg/dL Creatinine (0.52-1.04) mg/dL Estimated GFR (>60) mL/min BUN/Creatinine Ratio (6-22) Glucose (80-110) mg/dL Lactate 1.6 (0.7-2.1) mmol/L Calcium (8.4-10.2) mg/dL Total Bilirubin (0.2-1.3) mg/dL AST (14-36) IU/L ALT (<35) IU/L Alkaline Phosphatase (38-126) U/L Troponin I < 0.012 (0.01-0.034) ng/mL NT-Pro-B Natriuret Pep (<125) pg/mL Total Protein (6.3-8.2) g/dL Albumin (3.5-5.0) g/dL Globulin (1.7-4.1) g/dL Albumin/Globulin Ratio (1.0-2.8) SARS-CoV-2 (PCR) Negative (Negative) Imaging Data Chest x-ray: Radiologist's Impression: [address] [address] XRay Report Signed Patient: Leslie García MR#: [id number] : 1955 Acct:[id number] Age/Sex: 67 / F Date of Service: 02/23/23 Loc: ED Accession Number: [id number] ?? Procedure: XR chest 1V Ordering Provider: Laura Mauro D.O. PROCEDURE:? XR CHEST 1V ? INDICATIONS:? Shortness of breath ? TECHNIQUE:? One view of the chest was acquired.? ? COMPARISON:? Merged With [facility], , XR CHEST 1V, 11/13/2021, 18:54. ? FINDINGS:? ? Surgical changes and devices:? None.? ? Lungs and pleura:? Patchy left basilar airspace opacity.? Hazy opacities of the bilateral costophrenic angles likely representing small pleural effusions. ? Mediastinum:? Mediastinal contours appear normal.? Heart size is normal.? ? Bones and chest wall:? No suspicious bony lesions.? Overlying soft tissues appea r unremarkable.? ? IMPRESSION:? Suspected small bilateral pleural effusions with patchy left basilar opacity which may represent atelectasis versus focal airspace disease. ? ? Dictated by: Yon Rdz M.D. on 02/23/2023 at 13:21 ? ? Approved by: Yon Rdz M.D. on 02/23/2023 at 13:22?? ECG Data Attestation: I personally reviewed and interpreted this ECG as follows: Prior ECG tracings: available for review Interpretation: Sinus bradycardia rate of 50 6p are 176 QRS of 94 and QTC 438. No acute ST elevation or depression. No change from prior. EKG 2. Sinus rhythm rate of 63 MT 188 QRS 86 and QTC 437. No acute ST elevation or depression. MDM Narrative Medical decision making narrative: This is a 67-year-old female increasing shortness of breath who has had prior pulmonary emboli, hypertension dyslipidemia, patient also has some chest discomfort. She states it feels similar to her blood clot she has been anticoagulated appropriately and has been taking her medication daily. Chest x- ray shows some possible pleural effusion, lab work was obtained. CBC shows left shift but otherwise normal white count, hemoglobin and platelets. Patient's potassium is 2.6, she notes she has chronic diarrhea is likely the source she does take potassium supplementation she denies any vomiting. Renal function and electrolytes are otherwise normal lactate negative at 1.6, troponin was negative and repeated a 2nd time is negative as well BNP of 53 with normal LFTs. Patient's COVID swab was negative. Because of patient's history and she states it feels very similar CT angio was obtained. She was pretreated secondary to known allergy with Benadryl and Solu- Medrol. Patient's CT angio shows changes most consistent with bronchitis. Discussed with patient she fell asleep she nor uses O2 at home when sleeping so was placed for this purpose but was not having any desats while awake. She is not wheezy on examination or on recheck. Discussed with patient she feels comfortable to return home we will continue her Advair, she has albuterol but discussed a short course of steroids. Continue her apixaban. Discussed possibly azithromycin although no other infectious symptoms but has had some efficacy in folks with COPD or lung disease. Patient will hold onto the prescription and only fill it if she is not improving with steroids. She feels comfortable with this plan we discussed return precautions. All questions answered. Patient and I discussed she had potassium orally here she is going to take an additional dose this evening at home and in the morning and then follow- up in the next 2-3 days for recheck of her potassium level as well as re- evaluation overall. Discharge Plan Departure Patient Disposition: Home Clinical Impression: Hypokalemia, Chest pain, Bronchitis Instructions: Acute Bronchitis Activity Restrictions/Additional Instructions: Your workup today shows bronchitis on the CT of your chest. Take steroids daily until gone. Prescription sent to [facility] pharmacy in [place]. You can use your albuterol inhaler 2-4 puffs every 4 hours as needed. Continue your Advair inhaler twice daily. Your potassium was low, take an extra 40 mEq or 2 tabs this evening, followed by an additional 40meq or 2 tablets tomorrow morning. They restart your usual dose. Please follow-up with your physician to have your potassium rechecked to make sure it has normalized, they may have to adjust her dose if you are having persistent chronic diarrhea. Please return for new or worsening chest pain, shortness of breath, passing out, palpitations, new swelling in her extremities or other new or concerning changes. Prescriptions: New prednisone 10 mg tablets,dose pack See Rx Instructions .ROUTE .COMPLEX Qty: 15 0RF Rx Instructions: Take 5 tablets p.o. x1 day, then 4 tablets p.o. x1 day, then 3 tablets p.o. x1 day, then 2 tablets p.o. x1 day, then 1 tablet p.o. x1 day azithromycin 250 mg tablet See Rx Instructions .ROUTE .COMPLEX Qty: 6 0RF Rx Instructions: For 250 mg dose pack: take 500 mg today (day 1), then 250 mg for 4 days (days 2-5) No Action atorvastatin 40 mg tablet 40 mg PO DAILY ropinirole 1 mg tablet 2 mg PO ONCE HS sertraline 100 mg tablet 200 mg PO DAILY potassium chloride 20 mEq tablet,ER particles/crystals 20 meq PO BID pantoprazole 40 mg tablet,delayed release (DR/EC) 40 mg PO BID Rx Instructions: takes before breakfast and before dinner at 1700 hydrochlorothiazide 25 mg tablet 25 mg PO DAILY losartan 100 mg tablet 100 mg PO DAILY Advair HFA 230-21 mcg/actuation HFA aerosol inhaler 1 inh INHALATION BID ondansetron 4 mg tablet,disintegrating 4 mg PO Q6H PRN (Reason: nausea and vomiting) Qty: 14 0RF metoclopramide HCl [Reglan] 10 mg tablet 10 mg PO Q6H PRN (Reason: nausea and vomiting) Qty: 10 0RF hydrocodone-acetaminophen 5-325 mg tablet 1 tab PO BEDTIME PRN (Reason: pain) Qty: 10 0RF Patient Comments: pt hasnt had an active prescription for this in >1 month aripiprazole [Abilify] 2 mg Tablet 2 mg PO DAILY ropinirole 1 mg Tablet 2 mg PO DAILY zolpidem [Ambien] 5 mg Tablet 5 mg PO BEDTIME PRN (Reason: Insomnia) Rx Instructions: pt states she takes 1-2 tablets each night Eliquis 5 mg Tablet 10 mg PO BID 90 Days Qty: 360 4RF Rx Instructions: Take, by mouth, apixaban (Eliquis) 10 milligrams, every 12 hours, for 7 days, starting from November 14, 2021. After 7 days, take, by mouth, apixaban (Eliquis) 5 milligrams, every 12 hours. Referrals: Nickie Erwin MD [Primary Care Provider] - Stand Alone Forms: Patient Portal/API
[2023-02-23] MEDS: methylPREDNISolone 125 MG/2 ML VIAL IV (14:32)
[2023-02-23] MEDS: NITROGLYCERIN 0.4 MG SL TAB SL (14:32)
[2023-02-23] MEDS: diphenhydrAMINE 50 MG/ML VIAL IV (14:33)
[2023-02-23 15:08] LABS: Add Manual Diff / Slide Review NO; Basophils Absolute Auto 0 /uL (0-100); Basophils Percent Auto 0.4 % (0-2); Eosinophils Absolute Auto 100 /uL (0-450); Eosinophils Percent Auto 0.9 % (2-4); Hematocrit 37.7 % (36-46); Hemoglobin 13.1 g/dL (12.0-16.0); Lymphocytes Absolute Auto 1500 /uL (1100-4500); Lymphocytes Percent Auto 18.6 % (25-40); Mean Corpuscular HGB Conc 34.6 % (30-36); Mean Corpuscular Hemoglobin 30.6 PG (26-34); Mean Corpuscular Volume 88.4 fL (80-100); Monocytes Absolute Auto 400 /uL (0-900); Monocytes Percent Auto 4.7 % (3-14); Neutrophils Absolute Auto 6200 /uL (1500-7000); Neutrophils Percent Auto 75.4 % (50-75); Platelet Count 187 X10^3/uL (150-400); Red Blood Cell Count 4.26 X10^6/uL (4.0-5.2); Red Cell Distribution Width 14.1 % (11.6-14.8); White Blood Cell Count 8.2 X10^3/uL (4.5-11.0)
[2023-02-23 15:14] LABS: INR 1.2 (0.9-1.3); Lactate (Lactic Acid) 1.6 mmol/L (0.7-2.1); Prothrombin Time 14.1 SECONDS (10.1-12.7)
[2023-02-23 15:16] LABS: Alanine Aminotransferase 29 IU/L (<35); Albumin 4.1 g/dL (3.5-5.0); Albumin Globulin Ratio 1.4 (1.0-2.8); Alkaline Phosphatase 68 U/L (38-126); Aspartate Aminotransferase 26 IU/L (14-36); BUN Creatinine Ratio 19.4 (6-22); Bilirubin Total 0.5 mg/dL (0.2-1.3); Blood Urea Nitrogen 14 mg/dL (7-17); Calcium 9.1 mg/dL (8.4-10.2); Carbon Dioxide 32 mmol/L (22-32); Chloride 99 mmol/L (98-107); Estimated Glomerular Filt Rate > 60 mL/min (>60); Glucose 118 mg/dL (80-110); HEMOLYSIS 17 (0-50); Sodium 138 mmol/L (137-145); Total Protein 7.1 g/dL (6.3-8.2)
[2023-02-23 15:27] LABS: NT-proBNP (BNP-Adult 18+) 53 pg/mL (<125); Troponin I < 0.012 ng/mL (0.01-0.034)
[2023-02-23 15:32] LABS: Potassium 2.6 mmol/L (3.4-5.1)
[2023-02-23] MEDS: POTASSIUM CHLORIDE 20 MEQ/15 ML UDC 40 MEQ PO (15:40)
[2023-02-23 17:14] LABS: Troponin I < 0.012 ng/mL (0.01-0.034)
[2023-02-23 18:17] LABS: COVID19 -Nasal RAPID Negative (Negative)
== END 2023-02-23 18:45 | disposition home or self-care (01) ==
PROVIDERS: Emergency Provider Emergency Medicine; Family Provider Family Medicine; PCP Internal Medicine
DX: J40 Bronchitis, not specified as acute or chronic (principal); E87.6 Hypokalemia; R07.9 Chest pain, unspecified; Z20.822 Contact with and (suspected) exposure to COVID-19
CPT/HCPCS: 36415; 71045; 71275; 80053; 83605; 83880; 84484; 85025; 85610; 87635; 93005; 93010; 96374; 96375; 99284; C9803; J1200; J2930; Q9967

== ENCOUNTER → 2023-05-26 12:23 | Outpatient (CLI) | payer MEDICARE, OTHER, SELFPAY ==
[2021-11-14 15:05] VITALS: BMI 45.3
== END ==
PROVIDERS: Family Provider Family Medicine; PCP Student in an Organized Health Care Education/Training Program; Referring Provider Internal Medicine Critical Care Medicine; Visit Provider Internal Medicine Critical Care Medicine
DX: R06.09 Other forms of dyspnea (principal); Z87.891 Personal history of nicotine dependence; J98.8 Other specified respiratory disorders
CPT/HCPCS: 94060; 94726; 94729

== ENCOUNTER → 2023-09-07 13:28 | Outpatient (CLI) | payer MEDICARE, OTHER, SELFPAY ==
[2021-11-14 15:05] VITALS: BMI 45.3
[2023-09-07 15:13] LABS: Add Manual Diff / Slide Review NO; Basophils Absolute Auto 0 /uL (0-100); Basophils Percent Auto 0.5 % (0-2); Eosinophils Absolute Auto 0 /uL (0-450); Eosinophils Percent Auto 0.6 % (2-4); Hematocrit 38.3 % (36-46); Hemoglobin 13.1 g/dL (12.0-16.0); Lymphocytes Absolute Auto 1600 /uL (1100-4500); Mean Corpuscular HGB Conc 34.1 % (30-36); Mean Corpuscular Hemoglobin 30.4 PG (26-34); Mean Corpuscular Volume 89.3 fL (80-100); Monocytes Absolute Auto 300 /uL (0-900); Monocytes Percent Auto 5.2 % (3-14); Neutrophils Absolute Auto 4000 /uL (1500-7000); Neutrophils Percent Auto 66.7 % (50-75); Platelet Count 193 X10^3/uL (150-400); Red Blood Cell Count 4.29 X10^6/uL (4.0-5.2); Red Cell Distribution Width 14.8 % (11.6-14.8)
[2023-09-07 15:38] LABS: Cholesterol 173 mg/dL (140-199); HDL Cholesterol 50 mg/dL (40-60); LDL Cholesterol Calculated 88 mg/dL (<100); Magnesium 1.7 mg/dL (1.6-2.3); Triglycerides 173 mg/dL (35-150)
[2023-09-07 16:07] LABS: Thyroid Stimulating Hormone 1.64 uIU/mL (0.47-4.68)
== END ==
PROVIDERS: PCP Student in an Organized Health Care Education/Training Program; Referring Provider Internal Medicine Cardiovascular Disease; Visit Provider Internal Medicine Cardiovascular Disease
DX: E78.5 Hyperlipidemia, unspecified (principal); I10 Essential (primary) hypertension
CPT/HCPCS: 36415; 80061; 83735; 84443; 85025

== ENCOUNTER 2023-09-17 12:30 | Outpatient (RCR) | payer MEDICARE, OTHER, SELFPAY ==
[2021-11-14 15:05] VITALS: BMI 45.3
== END 2023-09-17 14:30 ==
LOC: PUL 12:30
PROVIDERS: PCP Student in an Organized Health Care Education/Training Program; Referring Provider Student in an Organized Health Care Education/Training Program; Visit Provider Student in an Organized Health Care Education/Training Program
DX: J44.9 Chronic obstructive pulmonary disease, unspecified (principal)
CPT/HCPCS: 94625; 94626

== ENCOUNTER → 2023-10-22 11:34 | Outpatient (CLI) | payer MEDICARE, OTHER, SELFPAY ==
[2021-11-14 15:05] VITALS: BMI 45.3
[2023-10-22 12:43] LABS: BUN Creatinine Ratio 22.1 (6-22); Blood Urea Nitrogen 19 mg/dL (7-17); Calcium 9.7 mg/dL (8.4-10.2); Carbon Dioxide 30 mmol/L (22-32); Chloride 103 mmol/L (98-107); Estimated Glomerular Filt Rate > 60 mL/min (>60); Glucose 97 mg/dL (80-110); HEMOLYSIS 21 (0-50); Potassium 3.4 mmol/L (3.4-5.1); Sodium 141 mmol/L (137-145)
== END ==
PROVIDERS: PCP Student in an Organized Health Care Education/Training Program; Referring Provider Internal Medicine Cardiovascular Disease; Visit Provider Internal Medicine Cardiovascular Disease
DX: I10 Essential (primary) hypertension (principal)
CPT/HCPCS: 36415; 80048

== ENCOUNTER → 2023-10-29 12:05 | Outpatient (CLI) | payer MEDICARE, OTHER, SELFPAY ==
[2021-11-14 15:05] VITALS: BMI 45.3
[2023-10-29 13:30] LABS: BUN Creatinine Ratio 19.5 (6-22); Blood Urea Nitrogen 16 mg/dL (7-17); Carbon Dioxide 31 mmol/L (22-32); Chloride 102 mmol/L (98-107); Estimated Glomerular Filt Rate > 60 mL/min (>60); Glucose 90 mg/dL (80-110); HEMOLYSIS < 15 (0-50); Potassium 3.7 mmol/L (3.4-5.1); Sodium 139 mmol/L (137-145)
== END ==
PROVIDERS: PCP Student in an Organized Health Care Education/Training Program; Referring Provider Internal Medicine Cardiovascular Disease; Visit Provider Internal Medicine Cardiovascular Disease
DX: E87.6 Hypokalemia (principal)
CPT/HCPCS: 36415; 80048

== ENCOUNTER → 2023-11-05 11:09 | Outpatient (CLI) | payer MEDICARE, OTHER, SELFPAY ==
[2021-11-14 15:05] VITALS: BMI 45.3
[2023-11-05 13:56] LABS: BUN Creatinine Ratio 16.1 (6-22); Blood Urea Nitrogen 15 mg/dL (7-17); Calcium 10.1 mg/dL (8.4-10.2); Carbon Dioxide 34 mmol/L (22-32); Chloride 101 mmol/L (98-107); Cholesterol 147 mg/dL (140-199); Estimated Glomerular Filt Rate > 60 mL/min (>60); Glucose 86 mg/dL (80-110); HDL Cholesterol 52 mg/dL (40-60); HEMOLYSIS < 15 (0-50); LDL Cholesterol Calculated 67 mg/dL (<100); Potassium 3.8 mmol/L (3.4-5.1); Sodium 142 mmol/L (137-145); Triglycerides 138 mg/dL (35-150)
== END ==
PROVIDERS: PCP Student in an Organized Health Care Education/Training Program; Referring Provider Internal Medicine Cardiovascular Disease; Visit Provider Internal Medicine Cardiovascular Disease
DX: I10 Essential (primary) hypertension (principal)
CPT/HCPCS: 36415; 80048; 80061

== ENCOUNTER 2023-11-23 13:07 | Emergency (ER) | payer MEDICARE, OTHER, SELFPAY ==
[2021-11-14 15:05] VITALS: BMI 45.3
[2023-11-23 13:36] VITALS: BP 120/60; PULSE 53; RESP 16; TEMP 36.8; O2SAT 99; BMI 44.4
[2023-11-23 15:02] LABS: Add Manual Diff / Slide Review NO; Basophils Absolute Auto 0 /uL (0-100); Basophils Percent Auto 0.1 % (0-2); Eosinophils Absolute Auto 0 /uL (0-450); Eosinophils Percent Auto 0.4 % (2-4); Hematocrit 38.4 % (36-46); Hemoglobin 12.9 g/dL (12.0-16.0); Lymphocytes Absolute Auto 600 /uL (1100-4500); Lymphocytes Percent Auto 7.5 % (25-40); Mean Corpuscular HGB Conc 33.6 % (30-36); Mean Corpuscular Hemoglobin 30.1 PG (26-34); Mean Corpuscular Volume 89.7 fL (80-100); Monocytes Absolute Auto 200 /uL (0-900); Neutrophils Absolute Auto 7000 /uL (1500-7000); Platelet Count 169 X10^3/uL (150-400); Red Blood Cell Count 4.28 X10^6/uL (4.0-5.2); Red Cell Distribution Width 14.2 % (11.6-14.8); White Blood Cell Count 7.9 X10^3/uL (4.5-11.0)
[2023-11-23 15:10] LABS: INR 1.3 (0.9-1.3); Prothrombin Time 15.3 SECONDS (9.4-12.5)
[2023-11-23 15:13] LABS: PTT Partial Thromboplastin Tim 39 SECONDS (25.1-36.5)
[2023-11-23 15:21] LABS: Alanine Aminotransferase 37 IU/L (<35); Albumin 4.5 g/dL (3.5-5.0); Albumin Globulin Ratio 1.6 (1.0-2.8); Alkaline Phosphatase 73 U/L (38-126); Aspartate Aminotransferase 28 IU/L (14-36); BUN Creatinine Ratio 18.2 (6-22); Bilirubin Total 0.8 mg/dL (0.2-1.3); Blood Urea Nitrogen 14 mg/dL (7-17); Calcium 9.5 mg/dL (8.4-10.2); Carbon Dioxide 29 mmol/L (22-32); Chloride 104 mmol/L (98-107); Estimated Glomerular Filt Rate > 60 mL/min (>60); Globulin 2.9 g/dL (1.7-4.1); Glucose 100 mg/dL (80-110); HEMOLYSIS 18 (0-50); Potassium 3.5 mmol/L (3.4-5.1); Sodium 140 mmol/L (137-145); Total Protein 7.4 g/dL (6.3-8.2)
[2023-11-23 15:32] LABS: Troponin I < 0.012 ng/mL (0.01-0.034)
--- NOTE | 2023-11-23 16:46 | ED_ITS ---
HPI - GI Bleed General Chief complaint: GI Bleed Stated complaint: rectal bleeding GI pain Time Seen by Provider: 11/23/23 14:51 Source: patient and family Mode of arrival: Family Vehicle History of Present Illness HPI Narrative: 68-year-old woman currently anticoagulated on Eliquis for prior pulmonary emboli, history of hypertension, hyperlipidemia with increasing hemorrhoidal bleeding with stools. Patient is describing large volumes of clot in the toilet after a bowel movement. She is increasingly weak and fatigued. On arrival in the emergency department she is hemodynamically stable with a pulse at 63 and normal saturations. She has not been having fevers or chills. She describes no abdominal pain. She had started Trulicity about a month ago which caused severe constipation. She has since started this and notes that her stools are quite soft at this point but very painful to push any type of stool out Related Data Home Medications Medication Instructions Recorded Confirmed atorvastatin 40 mg tablet 40 mg PO DAILY 09/22/19 11/14/21 fluticasone propionate 230 1 inh inhalation BID 09/22/19 11/14/21 mcg-salmeterol 21 mcg/actuation HFA inhaler (Advair HFA) hydrochlorothiazide 25 mg tablet 25 mg PO DAILY 09/22/19 11/14/21 losartan 100 mg tablet 100 mg PO DAILY 09/22/19 11/14/21 pantoprazole 40 mg tablet,delayed 40 mg PO BID 09/22/19 11/14/21 release potassium chloride 20 mEq 20 meq PO BID 09/22/19 11/14/21 tablet,extended release(part/cryst) ropinirole 1 mg tablet 2 mg PO ONCE HS 09/22/19 11/14/21 sertraline 100 mg tablet 200 mg PO DAILY 09/22/19 11/14/21 aripiprazole 2 mg tablet (Abilify) 2 mg PO DAILY 11/14/21 11/14/21 ropinirole 1 mg tablet 2 mg PO DAILY 11/14/21 11/14/21 zolpidem 5 mg tablet (Ambien) 5 mg PO BEDTIME PRN Insomnia 11/14/21 11/14/21 Previous Rx's Medication Instructions Recorded metoclopramide HCl 10 mg tablet 10 mg PO Q6H PRN nausea and 09/22/19 (Reglan) vomiting #10 tabs ondansetron 4 mg disintegrating 4 mg PO Q6H PRN nausea and 09/22/19 tablet vomiting #14 tabs hydrocodone 5 mg-acetaminophen 325 1 tab PO BEDTIME PRN pain #10 tabs 04/25/21 mg tablet apixaban 5 mg tablet (Eliquis) 10 mg (2 x 5 mg) PO BID 90 days 11/15/21 #360 tabs azithromycin 250 mg tablet See Rx Instructions PO .COMPLEX #6 02/23/23 tabs prednisone 10 mg tablets in a dose See Rx Instructions PO .COMPLEX 02/23/23 pack #15 ea Allergies Allergy/AdvReac Type Severity Reaction Status Date / Time cimetidine [CIMETIDINE] Allergy Mild HIVES Verified 04/25/21 15:19 Iodinated Contrast Media AdvReac Severe Difficulty Verified 02/23/23 12:29 Breathing Review of Systems Review of Systems Narrative: Pertinent positive and negative findings as per HPI Patient History Medical History Restless leg syndrome Asthma Hyperlipidemia Hypertension Surgical History Status post cholecystectomy Social History household members: spouse Smoking Status: Former smoker Smoking Status: Former smoker alcohol intake frequency: holidays/special occasions only Substance Use Type: does not use Exam Initial Vital Signs Initial Vital Signs: Vital Signs Temperature 98.3 F 11/23/23 13:36 Pulse Rate 53 L 11/23/23 13:36 Respiratory Rate 16 11/23/23 13:36 Blood Pressure 120/60 11/23/23 13:36 Pulse Oximetry 99 11/23/23 13:36 Oxygen Delivery Method Room Air 11/23/23 13:36 General: Healthy appearing, in moderate pain but a ble to give a complete and coherent history. Well-nourished well-developed HEENT: Moist mucous membranes, normal sclera with reactive pupils, Respiratory: Full and symmetrical air movement Cardiac: Regular rate and rhythm no murmurs no bruits Abdomen: Soft, nontender, good bowel tones, no flank pain Rectal exam: She is some small noninflamed external hemorrhoidal tags. She has significant pain and tenderness with rectal sphincter spasm with rectal exam. There is no obvious masses appreciated in the lower rectum but I am not able to advance my finger very far due to the sphincter spasm. There was no blood on my finger and I do not see any internal hemorrhoids that seemed to be significantly inflamed enough to be visualized near the rectal sphincter Skin: Warm and dry, no rashes Neurologic: Grossly neurologically intact with no obvious asymmetries or abnormalities Extremities: No trauma, well perfused Psych: Cooperative, appropriate insight and affect Course Orders Ordered: ED Orders 11/23/23 14:48 Complete Blood Count AUTO DIFF Stat Comprehensive Metabolic Panel Stat Magnesium Stat PT [Prothrombin Time INR] Stat PTT Partial Thromboplastin Jorge Stat Troponin I Stat Type and Screen Stat 11/23/23 14:52 EKG-12 Lead Stat Discontinued Medications Sodium Chloride (Normal Saline 0.9%) 1,000 mls @ 1,000 mls/hr IV BOLUS ONE Stop: 11/23/23 15:50 Last Admin: 11/23/23 17:07 Dose: 1,000 mls/hr Documented By: JUDSON Vital Signs Vital signs: Vital Signs - 8 hr 11/23/23 13:36 Temperature 98.3 F Pulse Rate 53 L Respiratory Rate 16 Blood Pressure 120/60 Pulse Oximetry 99 Oxygen Delivery Method Room Air MDM - GI Bleed Lab Data 11/23/23 14:48 11/23/23 14:48 Labs: Lab Results 11/23/23 Range/Units 14:48 WBC 7.9 (4.5-11.0) X10^3/uL RBC 4.28 (4.0-5.2) X10^6/uL Hgb 12.9 (12.0-16.0) g/dL Hct 38.4 (36-46) % MCV 89.7 (80-100) fL MCH 30.1 (26-34) PG MCHC 33.6 (30-36) % RDW 14.2 (11.6-14.8) % Plt Count 169 (150-400) X10^3/uL Neut % (Auto) 89.0 H (50-75) % Lymph % (Auto) 7.5 L (25-40) % Gregory % (Auto) 3.0 (3-14) % Eos % (Auto) 0.4 L (2-4) % Baso % (Auto) 0.1 (0-2) % Neut # (Auto) 7000 (2227-3042) /uL Lymph # (Auto) 600 L (1922-5153) /uL Gregory # (Auto) 200 (0-900) /uL Eos # (Auto) 0 (0-450) /uL Baso # (Auto) 0 (0-100) /uL PT 15.3 H (9.4-12.5) SECONDS INR 1.3 (0.9-1.3) APTT 39 H (25.1-36.5) SECONDS Sodium 140 (137-145) mmol/L Potassium 3.5 (3.4-5.1) mmol/L Chloride 104 (98-107) mmol/L Carbon Dioxide 29 (22-32) mmol/L BUN 14 (7-17) mg/dL Creatinine 0.77 (0.52-1.04) mg/dL Estimated GFR > 60 (>60) mL/min BUN/Creatinine Ratio 18.2 (6-22) Glucose 100 (80-110) mg/dL Calcium 9.5 (8.4-10.2) mg/dL Magnesium 2.0 (1.6-2.3) mg/dL Total Bilirubin 0.8 (0.2-1.3) mg/dL AST 28 (14-36) IU/L ALT 37 H (<35) IU/L Alkaline Phosphatase 73 (38-126) U/L Troponin I < 0.012 (0.01-0.034) ng/mL Total Protein 7.4 (6.3-8.2) g/dL Albumin 4.5 (3.5-5.0) g/dL Globulin 2.9 (1.7-4.1) g/dL Albumin/Globulin Ratio 1.6 (1.0-2.8) Blood Type A Positive Antibody Screen Negative [facility] Narrative Medical decision making narrative: CC: Bright red blood per rectum with severe rectal pain Complicating co-morbidities: On apixaban for history of a DVT, hypertension, hyperlipidemia. Patient had a normal colonoscopy approximately 10 years ago and recently had a normal Cologuard study Data collected from: patient, Differential considered: External hemorrhoids, internal hemorrhoids, diverticular bleeding, rectal mass Exam documented above, pertinent findings include: No obviously inflamed and external hemorrhoids. Significant rectal spasm with rectal exam. Concern for a rectal fissure is entertained. No blood on the glove, no lower rectal masses and no obvious large internal hemorrhoids in the lower portion of the rectum Lab Test results independently reviewed as above. Pertinent findings: No evidence of anemia with H&H stable at 12.9 and 38.4 Chemistries are unremarkable Consultations: Discussion with Dr. Rizo, general surgery. He recommends outpatient follow up with him or another surgeon for additional evaluation and treatment for rectal fissure if appropriate and discussion of need for any endoscopy. Treatments: She is often topical lidocaine jelly to see if this can help with the pain Discussion: 68-year-old woman with significant rectal pain, bright red blood with bowel movements. I suspect that she actually has a rectal fissure, perhaps small internal hemorrhoid with exacerbated bleeding with a bowel movement. She is not having clots or bleeding in the absence of a bowel movement. She does not have external hemorrhoids. No significant anemia, no significant abdominal pain recent weight loss or other red flag signs. She has been using preparation H suppositories recently without significant relief. Care is discussed with Dr. Rizo. We will have her try the topical lidocaine jelly here in the emergency department. We will ask her to call Dr. Rizo's office as well as talk to her primary care doctor to try and expedite an outpatient referral. Questions are answered and she is safe for discharge Discharge Plan Departure Patient Disposition: Home Clinical Impression: Rectal fissure, BRBPR (bright red blood per rectum) Activity Restrictions/Additional Instructions: Thank you for coming in today On your exam, I am not appreciating any significant internal or external hemorrhoids. There does not appear to be any large rectal masses. Fact that you are bleeding with a bowel movement and not in between bowel movements is somewhat reassuring. There was no sign of anemia so even though the blood looks like a lot of blood, your body is keeping up with the amount you are losing. I suspect that you may have a small tear in the anus itself which causes significant pain, swelling and spasm. For this I have given you some topical lidocaine to see if it helps with pain relief in any way. It is important to keep your stool soft as possible. I have reviewed your care with Dr. Rizo our general surgeon. He would like to see you as soon as possible. I would suggest that you call their office tomorrow, [facility] at [phone] and let them know that you were in the emergency department for significant rectal pain and rectal bleeding. I would also recommend that you contact your primary care doctor to see if they can expedite an urgent referral to Dr. Rizo and [facility]. I do not think that the preparation H suppositories are helping and I would recommend stopping those. If you find that you are having new symptoms, worsening bleeding or additional concerns please feel free to return to the ER Prescriptions: No Action atorvastatin 40 mg tablet 40 mg PO DAILY ropinirole 1 mg tablet 2 mg PO ONCE HS sertraline 100 mg tablet 200 mg PO DAILY potassium chloride 20 mEq tablet,ER particles/crystals 20 meq PO BID pantoprazole 40 mg tablet,delayed release (DR/EC) 40 mg PO BID Rx Instructions: takes before breakfast and before dinner at 1700 hydrochlorothiazide 25 mg tablet 25 mg PO DAILY losartan 100 mg tablet 100 mg PO DAILY Advair HFA 230-21 mcg/actuation HFA aerosol inhaler 1 inh INHALATION BID ondansetron 4 mg tablet,disintegrating 4 mg PO Q6H PRN (Reason: nausea and vomiting) Qty: 14 0RF metoclopramide HCl [Reglan] 10 mg tablet 10 mg PO Q6H PRN (Reason: nausea and vomiting) Qty: 10 0RF hydrocodone-acetaminophen 5-325 mg tablet 1 tab PO BEDTIME PRN (Reason: pain) Qty: 10 0RF Patient Comments: pt hasnt had an active prescription for this in >1 month aripiprazole [Abilify] 2 mg Tablet 2 mg PO DAILY ropinirole 1 mg Tablet 2 mg PO DAILY zolpidem [Ambien] 5 mg Tablet 5 mg PO BEDTIME PRN (Reason: Insomnia) Rx Instructions: pt states she takes 1-2 tablets each night Eliquis 5 mg Tablet 10 mg PO BID 90 Days Qty: 360 4RF Rx Instructions: Take, by mouth, apixaban (Eliquis) 10 milligrams, every 12 hours, for 7 days, starting from November 14, 2021. After 7 days, take, by mouth, apixaban (Eliquis) 5 milligrams, every 12 hours. prednisone 10 mg tablets,dose pack See Rx Instructions .ROUTE .COMPLEX Qty: 15 0RF Rx Instructions: Take 5 tablets p.o. x1 day, then 4 tablets p.o. x1 day, then 3 tablets p.o. x1 day, then 2 tablets p.o. x1 day, then 1 tablet p.o. x1 day azithromycin 250 mg tablet See Rx Instructions .ROUTE .COMPLEX Qty: 6 0RF Rx Instructions: For 250 mg dose pack: take 500 mg today (day 1), then 250 mg for 4 days (days 2-5) Referrals: Jackie Freeman MD [Primary Care Provider] - Stand Alone Forms: Patient Portal/API
[2023-11-23] MEDS: SODIUM CHLORIDE 0.9% 1,000 ML 1000 ML IV (17:07)
[2023-11-23] MEDS: LIDOCAINE 2% (GLYDO) 6 ML GEL TOP (17:35)
[2023-11-23 17:46] VITALS: BP 127/60; PULSE 58; RESP 16; O2SAT 99
== END 2023-11-23 17:47 | disposition home or self-care (01) ==
PROVIDERS: Emergency Provider Emergency Medicine; PCP Student in an Organized Health Care Education/Training Program
DX: K62.5 Hemorrhage of anus and rectum (principal); K60.2 Anal fissure, unspecified; R07.9 Chest pain, unspecified; Z79.01 Long term (current) use of anticoagulants
CPT/HCPCS: 36415; 80053; 83735; 84484; 85025; 85610; 85730; 86850; 86900; 86901; 93005; 96360; 99284

== ENCOUNTER → 2024-07-09 14:47 | Outpatient (CLI) | payer MEDICARE, OTHER, SELFPAY ==
[2021-11-14 15:05] VITALS: BMI 45.3
--- NOTE | 2024-07-09 14:49 | DI.CT.S_ITS ---
PROCEDURE: CT SINUS SCREEN WO CON INDICATIONS: CHRONIC SINUSITIS W/WORSEING SYMPTOMS TECHNIQUE: Noncontrast 3.0 mm axial images acquired from the frontal sinuses to the mid-sella, with coronal and sagittal reformats. For radiation dose reduction, the following was used: automated exposure control, adjustment of mA and/or kV according to patient size. COMPARISON: None. FINDINGS: Image quality: Excellent. Maxillary Sinuses: No bony remodeling or destruction. Sinuses are clear. Bilateral uncinectomy Ethmoid Air Cells: Partial ethmoidectomy. No osseous remodeling. Sphenoid Sinuses: No bony remodeling or destruction. Sinuses are clear. Frontal Sinuses: No bony remodeling or destruction. Sinuses are clear. Ostiomeatal Complexes: Ostiomeatal complexes are patent. No Divine cells. Miscellaneous: Visualized intra-orbital contents are normal. Bilateral pneumatization of the middle turbinates greater on the right. No nasal septal deviation. IMPRESSION: Uncinectomy and partial ethmoidectomy. 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 No evidence of mucosal thickening or osseous remodeling. Approved by: Sonny Guillen M.D. on 07/11/2024 at 14:25
== END ==
LOC: CT 14:48
PROVIDERS: PCP Student in an Organized Health Care Education/Training Program; Referring Provider Family Medicine; Visit Provider Family Medicine
DX: J32.0 Chronic maxillary sinusitis (principal); J34.3 Hypertrophy of nasal turbinates
CPT/HCPCS: 70486

== ENCOUNTER 2024-10-26 15:58 | Emergency (ER) | payer MEDICARE, OTHER, SELFPAY ==
[2021-11-14 15:05] VITALS: BMI 45.3
[2024-10-26] VITALS (14 sets, daily range): BP systolic 127–182; BP diastolic 61–75; PULSE 60–95; RESP 16–27; TEMP 36.8; O2SAT 94–96
--- NOTE | 2024-10-26 16:18 | EKG_ITS ---
[address] [address] Test Date: 2024-10-26 Pat Name: Leslie García Department: Room: Gender: Female Clinical Review Nurse: SALBADOR : 1955 Requested By: Order Number: [id number] Reading MD: Robi Frost Measurements Intervals [place] Rate: 71 P: 20 [place]: 172 QRS: 66 QRSD: 90 T: 50 QT: 410 QTc: 445 Interpretive Statements Sinus rhythm with premature atrial complexes Electronically Signed On 11-01-2024 20:08:06 PDT by Robi Frost
--- NOTE | 2024-10-26 16:22 | DI.RAD.S_ITS ---
PROCEDURE: XR CHEST 1V INDICATIONS: chest pain TECHNIQUE: One view of the chest was acquired. COMPARISON: [facility], CR, XR CHEST 1V, 02/23/2023, 12:43. [facility], CR, XR CHEST 1V, 11/13/2021, 18:54. FINDINGS: Surgical changes and devices: None. Lungs and pleura: Lungs are clear. No pleural effusions or pneumothorax. Mediastinum: Mediastinal contours appear normal. Heart size is normal. Bones and chest wall: No suspicious bony lesions. Overlying soft tissues appear unremarkable. IMPRESSION: No acute cardiopulmonary abnormality is seen. Approved by: John Cristobal M.D. on 10/26/2024 at 17:16
[2024-10-26 17:04] LABS: Add Manual Diff / Slide Review NO; Basophils Absolute Auto 0 /uL (0-100); Basophils Percent Auto 0.3 % (0-2); Eosinophils Absolute Auto 100 /uL (0-450); Eosinophils Percent Auto 1.1 % (2-4); Hematocrit 39.1 % (36-46); Lymphocytes Absolute Auto 1400 /uL (1100-4500); Lymphocytes Percent Auto 21.5 % (25-40); Mean Corpuscular HGB Conc 33.3 % (30-36); Mean Corpuscular Hemoglobin 29.4 PG (26-34); Mean Corpuscular Volume 88.1 fL (80-100); Monocytes Absolute Auto 300 /uL (0-900); Monocytes Percent Auto 5.3 % (3-14); Neutrophils Absolute Auto 4600 /uL (1500-7000); Neutrophils Percent Auto 71.8 % (50-75); Platelet Count 174 X10^3/uL (150-400); Red Blood Cell Count 4.44 X10^6/uL (4.0-5.2); Red Cell Distribution Width 14.8 % (11.6-14.8); White Blood Cell Count 6.3 X10^3/uL (4.5-11.0)
[2024-10-26 17:09] LABS: INR 1.1 (0.9-1.3)
[2024-10-26 17:11] LABS: PTT Partial Thromboplastin Tim 37 SECONDS (25.1-36.5)
[2024-10-26 17:13] LABS: Alanine Aminotransferase 30 IU/L (<35); Albumin 4.3 g/dL (3.5-5.0); Albumin Globulin Ratio 1.5 (1.0-2.8); Alkaline Phosphatase 73 U/L (38-126); Aspartate Aminotransferase 27 IU/L (14-36); BUN Creatinine Ratio 18.6 (6-22); Bilirubin Total 0.5 mg/dL (0.2-1.3); Blood Urea Nitrogen 16 mg/dL (7-17); Calcium 9.2 mg/dL (8.4-10.2); Carbon Dioxide 25 mmol/L (22-32); Chloride 106 mmol/L (98-107); Creatine Kinase 65 U/L (30-135); Estimated Glomerular Filt Rate > 60 mL/min (>60); Globulin 2.8 g/dL (1.7-4.1); Glucose 141 mg/dL (80-110); HEMOLYSIS < 15 (0-50); Sodium 139 mmol/L (137-145); Total Protein 7.1 g/dL (6.3-8.2)
[2024-10-26 17:16] LABS: Lipase 97 U/L (23-300); Magnesium 1.8 mg/dL (1.6-2.3)
[2024-10-26 17:25] LABS: NT-proBNP (BNP-Adult 18+) 29 pg/mL (<125); Troponin I < 0.012 ng/mL (0.01-0.034)
--- NOTE | 2024-10-26 19:21 | ED.NAVMDI ---
HPI - Nausea/Vomiting/Diarrhea General Chief complaint: Nausea/Vomiting/Diarrhea Stated complaint: afib Time Seen by Provider: 10/26/24 19:21 Source: patient Mode of arrival: Wheelchair History of Present Illness HPI Narrative: 69-year-old female with a past medical history of hypertension hyperlipidemia PE on Eliquis, comes into the ED from home for evaluation of diarrhea ongoing persistent for the past 2 days, she also states that she was feeling some palpitation was worried she might have been in AFib, she states that she sat on her [employer] watch which is why she was concerned. However upon reviewing the image from her watch it just shows PAC., patient denies any other symptoms such as headache visual disturbances chest pain shortness breath fever chills nausea vomiting abdominal pain or any other GI/ symptoms. She denies any recent antibiotic use. She states that she normally has loose stools due to a cholecystectomy several years ago however she states that she has had 10 loose stools in the past 24 hours therefore is concerned and wanted to be evaluated here in the emergency department. She does describe dull intermittent cramping abdominal pain nothing making it better or worse. Related Data Home Medications Medication Instructions Recorded Confirmed atorvastatin 40 mg tablet 40 mg PO DAILY 09/22/19 12/02/23 fluticasone propionate 230 1 inh inhalation BID 09/22/19 12/02/23 mcg-salmeterol 21 mcg/actuation HFA inhaler (Advair HFA) hydrochlorothiazide 25 mg tablet 25 mg PO DAILY 09/22/19 12/02/23 losartan 100 mg tablet 100 mg PO DAILY 09/22/19 12/02/23 pantoprazole 40 mg tablet,delayed 40 mg PO BID 09/22/19 12/02/23 release potassium chloride 20 mEq 20 meq PO BID 09/22/19 12/02/23 tablet,extended release(part/cryst) ropinirole 1 mg tablet 2 mg PO ONCE HS 09/22/19 12/02/23 sertraline 100 mg tablet 200 mg PO DAILY 09/22/19 12/02/23 ropinirole 1 mg tablet 2 mg PO DAILY 11/14/21 12/02/23 acyclovir 400 mg tablet 400 mg PO DAILY PRN 12/02/23 12/02/23 aspirin 81 mg chewable tablet 81 mg PO DAILY 12/02/23 12/02/23 (Cosme Chewable Low Dose Aspirin) celecoxib 200 mg capsule (Celebrex) 200 mg PO DAILY 12/02/23 12/02/23 cholecalciferol (vitamin D3) 250 250 mcg PO DAILY 12/02/23 12/02/23 mcg (10,000 unit) capsule diltiazem HCl 120 mg 120 mg PO BID 12/02/23 12/02/23 capsule,extended release 12 hr ezetimibe 10 mg tablet 10 mg PO DAILY 12/02/23 12/02/23 furosemide 20 mg tablet 20 mg PO DAILY 12/02/23 12/02/23 ibuprofen 800 mg tablet 800 mg PO TID PRN 12/02/23 12/02/23 multivitamin (Daily Multi-Vitamin 1 tab PO DAILY 12/02/23 12/02/23 tablet) Previous Rx's Medication Instructions Recorded apixaban 5 mg tablet (Eliquis) 10 mg (2 x 5 mg) PO BID 90 days 11/15/21 #360 tabs Allergies Allergy/AdvReac Type Severity Reaction Status Date / Time cimetidine [CIMETIDINE] Allergy Mild HIVES Verified 12/02/23 09:59 Iodinated Contrast Media AdvReac Severe Difficulty Verified 12/02/23 09:59 Breathing Review of Systems Review of Systems Narrative: General: Denies fever, chills, weight loss HEENT: Denies headache, eye drainage, eye irritation, head trauma, sore throat, voice change Cardiovascular: Possible arrhythmia, Denies any chest pain, palpitations, tachycardia Respiratory: Denies any shortness of breath, cough, wheeze, stridor GI/: Positive abdominal pain, diarrhea, denies nausea, vomiting, bright red blood per rectum, melanotic stools, urinary frequency, urinary retention, dysuria, hematuria MSK: Denies any joint pain, muscle pains, swelling Skin: Denies any rashes, lesions, discoloration Neuro: Denies any headache, lightheadedness, dizziness, fainting, weakness Psych: Denies SI/HI Patient History Medical History COPD (chronic obstructive pulmonary disease) Restless leg syndrome Asthma Hyperlipidemia Hypertension Surgical History Hx of tonsillectomy Hx of appendectomy History of salpingectomy History of right oophorectomy Hx of hysterectomy Status post cholecystectomy Social History household members: spouse Smoking Status: Former smoker Smoking Status: Former smoker alcohol intake frequency: holidays/special occasions only Exam Narrative Exam Narrative: General: Cooperative, well-developed, not in acute distress HEENT: Normocephalic, atraumatic, PERRLA, normal sclera, eyelids normal Neck: Active full range of motion, atraumatic Chest: Normal to inspection, negative crepitus, no overlying erythema ecchymosis Respiratory: Normal respiratory effort, not in acute respiratory distress, clear to auscultation bilaterally negative cough, wheeze, tachypnea, rhonchi, rales Cardiology: Regular rate rhythm negative gallop, murmur, rubs GI/: No tenderness to palpation, soft, non rigid, normal to inspection, exam deferred MSK: Full active range of motion in all 4 extremities, atraumatic, no tenderness to palpation of any bony prominences Skin: No rashes or lesions noted Neuro: Alert awake oriented x3, moves all 4 extremities spontaneously, cranial nerves intact, able to answer all questions appropriately follows commands appropriately Psych: Cooperative, negative suicidal or homicidal ideations Initial Vital Signs Initial Vital Signs: Vital Signs Temperature 98.3 F 10/26/24 16:26 Pulse Rate 95 H 10/26/24 16:26 Respiratory Rate 16 10/26/24 16:26 Blood Pressure 182/75 H 10/26/24 16:26 Pulse Oximetry 94 10/26/24 16:26 Oxygen Delivery Method Room Air 10/26/24 16:26 Course Orders Ordered: ED Orders 10/26/24 16:22 XR chest 1V Stat EKG-12 Lead Stat 10/26/24 16:54 Complete Blood Count AUTO DIFF Stat Comprehensive Metabolic Panel Stat Lipase Stat Magnesium Stat NT-proBNP (BNP-Adult 18+) Stat PTT Partial Thromboplastin Jorge Stat Prothrombin Time INR Stat Troponin & CK Cardiac Panel Stat 10/26/24 19:42 GI Panel (Film Array) Stat 10/26/24 19:46 CT abdomen pelvis wo con Stat Discontinued Medications Aspirin (Aspirin 81 Mg Chew Tab) 324 mg PO NOW ONE Stop: 10/26/24 16:23 Last Admin: 10/26/24 17:23 Dose: Not Given Documented By: Sodium Chloride (Normal Saline 0.9%) 1,000 mls @ 1,000 mls/hr IV BOLUS ONE Stop: 10/26/24 20:52 Vital Signs Vital signs: Vital Signs - 8 hr 10/26/24 16:26 10/26/24 16:27 10/26/24 16:30 Temperature 98.3 F Pulse Rate 95 H 63 64 Respiratory Rate 16 21 21 Blood Pressure 182/75 H Pulse Oximetry 94 94 94 Oxygen Delivery Method Room Air 10/26/24 17:00 10/26/24 17:22 10/26/24 17:22 Temperature Pulse Rate 60 62 Respiratory Rate 18 26 H Blood Pressure 141/61 H Pulse Oximetry 95 95 Oxygen Delivery Method 10/26/24 17:30 10/26/24 17:30 10/26/24 18:00 Temperature Pulse Rate 62 Respiratory Rate 19 Blood Pressure 135/63 127/62 Pulse Oximetry 95 Oxygen Delivery Method 10/26/24 18:00 10/26/24 18:30 10/26/24 18:30 Temperature Pulse Rate 65 63 66 Respiratory Rate 22 20 20 Blood Pressure 142/64 H Pulse Oximetry 95 95 96 Oxygen Delivery Method Room Air 10/26/24 19:00 10/26/24 19:00 10/26/24 19:30 Temperature Pulse Rate 64 64 Respiratory Rate 19 21 Blood Pressure 149/67 H Pulse Oximetry 94 95 Oxygen Delivery Method 10/26/24 19:31 10/26/24 19:31 Temperature Pulse Rate 63 Respiratory Rate 17 Blood Pressure 163/70 H Pulse Oximetry 95 Oxygen Delivery Method MDM - Nausea/Vomiting/Diarrhea Differential Diagnosis Differential diagnosis: Likely gastroenteritis, drug-induced nausea and vomiting, dehydration and other (Diverticulitis, colitis, electrolyte abnormality, arrhythmia) Lab Data 10/26/24 16:54 10/26/24 16:54 Labs: Lab Results 10/26/24 Range/Units 16:54 WBC 6.3 (4.5-11.0) X10^3/uL RBC 4.44 (4.0-5.2) X10^6/uL Hgb 13.0 (12.0-16.0) g/dL Hct 39.1 (36-46) % MCV 88.1 (80-100) fL MCH 29.4 (26-34) PG MCHC 33.3 (30-36) % RDW 14.8 (11.6-14.8) % Plt Count 174 (150-400) X10^3/uL Neut % (Auto) 71.8 (50-75) % Lymph % (Auto) 21.5 L (25-40) % [place] % (Auto) 5.3 (3-14) % Eos % (Auto) 1.1 L (2-4) % Baso % (Auto) 0.3 (0-2) % Neut # (Auto) 4600 (3360-4820) /uL Lymph # (Auto) 1400 (4141-6404) /uL [place] # (Auto) 300 (0-900) /uL Eos # (Auto) 100 (0-450) /uL Baso # (Auto) 0 (0-100) /uL PT 13.0 H (9.4-12.5) SECONDS INR 1.1 (0.9-1.3) APTT 37 H (25.1-36.5) SECONDS Sodium 139 (137-145) mmol/L Potassium 3.0 L (3.4-5.1) mmol/L Chloride 106 (98-107) mmol/L Carbon Dioxide 25 (22-32) mmol/L BUN 16 (7-17) mg/dL Creatinine 0.86 (0.52-1.04) mg/dL Estimated GFR > 60 (>60) mL/min BUN/Creatinine Ratio 18.6 (6-22) Glucose 141 H (80-110) mg/dL Calcium 9.2 (8.4-10.2) mg/dL Magnesium 1.8 (1.6-2.3) mg/dL Total Bilirubin 0.5 (0.2-1.3) mg/dL AST 27 (14-36) IU/L ALT 30 (<35) IU/L Alkaline Phosphatase 73 (38-126) U/L Total Creatine Kinase 65 (30-135) U/L Troponin I < 0.012 (0.01-0.034) ng/mL NT-Pro-B Natriuret Pep 29 (<125) pg/mL Total Protein 7.1 (6.3-8.2) g/dL Albumin 4.3 (3.5-5.0) g/dL Globulin 2.8 (1.7-4.1) g/dL Albumin/Globulin Ratio 1.5 (1.0-2.8) Lipase 97 (23-300) U/L Urine Dip Bedside Urine Glucose Negative Bedside Urine Bilirubin - Negative Bedside Urine Ketone - Negative Urine Specific Mullen 1.025 Bedside Urine Occult Blood - Negative Bedside Urine pH 6 Bedside Urine Protein - Negative Bedside Urine Urobilinogen - Negative Bedside Urine Nitrite - Negative Bedside Urine Leukocytes - Negative Esterase Imaging Data Chest x-ray: Radiologist's Impression: [address] [address] XRay Report Signed Patient: Leslie García MR#: [id number] : 1955 Acct:[id number] Age/Sex: 69 / F Date of Service: 10/26/24 Loc: ED Accession Number: [id number] Procedure: XR chest 1V Ordering Provider: Ismael Jimenez MD PROCEDURE: XR CHEST 1V INDICATIONS: chest pain TECHNIQUE: One view of the chest was acquired. COMPARISON: [facility], CR, XR CHEST 1V, 02/23/2023, 12:43. [facility], CR, XR CHEST 1V, 11/13/2021, 18:54. FINDINGS: Surgical changes and devices: None. Lungs and pleura: Lungs are clear. No pleural effusions or pneumothorax. Mediastinum: Mediastinal contours appear normal. Heart size is normal. Bones and chest wall: No suspicious bony lesions. Overlying soft tissues appear unremarkable. IMPRESSION: No acute cardiopulmonary abnormality is seen. CT scan - abdomen/pelvis: Radiologist's Impression: [address] [address] [address] Scan Report Signed Patient: Leslie García MR#: [id number] : 1955 Acct:[id number] Age/Sex: 69 / F Date of Service: 10/26/24 Loc: ED Accession Number: [id number] Procedure: CT abdomen pelvis wo con Ordering Provider: Robi Christie D.O. PROCEDURE: CT ABDOMEN PELVIS WO CON INDICATIONS: diffuse abd pain with diarrhea TECHNIQUE: Axial sections were acquired from the lung bases to the pubic symphysis. Coronal and sagittal reformats were performed. For radiation dose reduction, the following was used: automated exposure control, adjustment of mA and/or kV according to patient size. COMPARISON: None. FINDINGS: Image quality: Diagnostic. Lower Chest: Bibasilar scarring/atelectasis are seen. Heart size is normal, no pericardial effusion. URINARY: Right Kidney: No stones or hydronephrosis. Right Ureter: No hydroureter. Left Kidney: No stones or hydronephrosis. Left Ureter: No hydroureter. Bladder: Normal wall thickness. No stones. ABDOMEN: Liver: No contour-deforming solid mass. Moderate hepatic steatosis. Gallbladder: Gallbladder is surgically absent. Biliary ducts: No biliary dilation. Pancreas: No ductal dilation. Spleen: Size is within normal limits. Adrenal Glands: No adrenal nodules. Stomach and Bowel: There is no bowel obstruction. No abnormal bowel wall thickening or mesenteric fat stranding. A few colonic diverticuli are seen without CT evidence of acute diverticulitis. Appendix is not visualized. No focal inflammatory changes are seen in right lower quadrant abdomen. Peritoneum: No abnormal intraperitoneal fluid. No free air. Ventral Wall: No hernia. Abdominal Nodes: No enlarged retroperitoneal or mesenteric lymph nodes. Vessels: Aorta and inferior vena cava are normal in size. Moderate atherosclerotic calcifications in abdominal aorta is seen. PELVIS: Pelvic Organs: Unremarkable. Pelvic Nodes: Unremarkable. Miscellaneous: No inguinal hernias are seen. Bones: No aggressive appearing bony lesions. No acute vertebral body compression fracture. IMPRESSION: 1. No acute inflammatory changes are seen in abdomen or pelvis. No free fluid or free air. No evidence of acute appendicitis or diverticulitis. 2. No obstructing renal stones or hydronephrosis. Normal appearing urinary bladder. 3. Hepatic steatosis. Prior cholecystectomy. 4. Moderate atherosclerotic calcifications in abdominal aorta. ECG Data Interpretation: EKG interpreted ED physician sinus 71 beats per minute QTC 445 occasional PAC noted normal axis nonspecific ST changes no STEMI MDM Narrative Medical decision making narrative: 69-year-old female with a past medical history of PE on Eliquis, hypertension, hyperlipidemia comes into the ED from home for evaluation of diarrhea ongoing persistent for the past 2 days, she states that she has had diarrhea 10 times today, states he normally has loose stool due to a remote history of cholecystectomy but given the fact that this was more than normal decided come into the ED for further evaluation treatment. She also describes some intermittent cramping diffuse abdominal pain nothing making it better or worse. She also states that she saw her phone stating that she was in AFib but she denies any chest pain shortness of breath no history of AFib. Patient had lab work performed here in the emergency department no leukocytosis, Chem panel only remarkable for a hypokalemia of 3.0, patient states that she does take potassium on a daily basis, troponin negative, patient had chest x-ray without any acute cardiopulmonary abnormalities, CT scan of the abdomen and pelvis does not show any acute abnormalities, chest x-ray without any acute cardiopulmonary abnormalities, patient was unable to provide stool sample here in the emergency department, informed her to follow up with her primary care doctor in outpatient setting, she verbalized understanding of this and agrees to being discharged home with outpatient follow up Discharge Plan Departure Patient Disposition: Home Clinical Impression: Abdominal pain, Acute hypokalemia Instructions: Diarrhea Activity Restrictions/Additional Instructions: Please follow up with the primary care doctor and 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 Disease processes change and evolve, if your symptoms worsen or if you develop any new symptoms that are concerning to you please return for evaluation. Your evaluation today does not show any evidence of any life-threatening/serious illnesses requiring admission to the hospital or surgery. Please follow-up with your doctor for re-evaluation in approximately 1 day. Seek immediate medical attention for any worrisome symptoms. *If you do not have a primary care provider please contact the [facility] Resource line at [phone]. They will ask some questions about your medical history and help get you set up with a doctor in the community. Prescriptions: No Action acyclovir 400 mg tablet 400 mg PO DAILY PRN aspirin [Cosme Chewable Aspirin] 81 mg tablet,chewable 81 mg PO DAILY celecoxib [Celebrex] 200 mg capsule 200 mg PO DAILY diltiazem HCl 120 mg capsule,extended release 12 hr 120 mg PO BID ezetimibe 10 mg tablet 10 mg PO DAILY furosemide 20 mg tablet 20 mg PO DAILY ibuprofen 800 mg tablet 800 mg PO TID PRN multivitamin [Daily Multi-Vitamin] Tablet 1 tab PO DAILY cholecalciferol (vitamin D3) 250 mcg (10,000 unit) capsule 250 mcg PO DAILY atorvastatin 40 mg tablet 40 mg PO DAILY ropinirole 1 mg tablet 2 mg PO ONCE HS sertraline 100 mg tablet 200 mg PO DAILY potassium chloride 20 mEq tablet,ER particles/crystals 20 meq PO BID pantoprazole 40 mg tablet,delayed release (DR/EC) 40 mg PO BID Rx Instructions: takes before breakfast and before dinner at 1700 hydrochlorothiazide 25 mg tablet 25 mg PO DAILY losartan 100 mg tablet 100 mg PO DAILY Advair HFA 230-21 mcg/actuation HFA aerosol inhaler 1 inh INHALATION BID ropinirole 1 mg Tablet 2 mg PO DAILY Eliquis 5 mg Tablet 10 mg PO BID 90 Days Qty: 360 4RF Rx Instructions: Take, by mouth, apixaban (Eliquis) 10 milligrams, every 12 hours, for 7 days, starting from November 14, 2021. After 7 days, take, by mouth, apixaban (Eliquis) 5 milligrams, every 12 hours. Referrals: Jackie Freeman MD [Primary Care Provider] - Stand Alone Forms: Patient Portal/API/Survey
--- NOTE | 2024-10-26 19:46 | DI.CT.S_ITS ---
PROCEDURE: CT ABDOMEN PELVIS WO CON INDICATIONS: diffuse abd pain with diarrhea TECHNIQUE: Axial sections were acquired from the lung bases to the pubic symphysis. Coronal and sagittal reformats were performed. For radiation dose reduction, the following was used: automated exposure control, adjustment of mA and/or kV according to patient size. COMPARISON: None. FINDINGS: Image quality: Diagnostic. Lower Chest: Bibasilar scarring/atelectasis are seen. Heart size is normal, no pericardial effusion. URINARY: Right Kidney: No stones or hydronephrosis. Right Ureter: No hydroureter. Left Kidney: No stones or hydronephrosis. Left Ureter: No hydroureter. Bladder: Normal wall thickness. No stones. ABDOMEN: Liver: No contour-deforming solid mass. Moderate hepatic steatosis. Gallbladder: Gallbladder is surgically absent. Biliary ducts: No biliary dilation. Pancreas: No ductal dilation. Spleen: Size is within normal limits. Adrenal Glands: No adrenal nodules. Stomach and Bowel: There is no bowel obstruction. No abnormal bowel wall thickening or mesenteric fat stranding. A few colonic diverticuli are seen without CT evidence of acute diverticulitis. Appendix is not visualized. No focal inflammatory changes are seen in right lower quadrant abdomen. Peritoneum: No abnormal intraperitoneal fluid. No free air. Ventral Wall: No hernia. Abdominal Nodes: No enlarged retroperitoneal or mesenteric lymph nodes. Vessels: Aorta and inferior vena cava are normal in size. Moderate atherosclerotic calcifications in abdominal aorta is seen. PELVIS: Pelvic Organs: Unremarkable. Pelvic Nodes: Unremarkable. Miscellaneous: No inguinal hernias are seen. Bones: No aggressive appearing bony lesions. No acute vertebral body compression fracture. IMPRESSION: 1. No acute inflammatory changes are seen in abdomen or pelvis. No free fluid or free air. No evidence of acute appendicitis or diverticulitis. 2. No obstructing renal stones or hydronephrosis. Normal appearing urinary bladder. 3. Hepatic steatosis. Prior cholecystectomy. 4. Moderate atherosclerotic calcifications in abdominal aorta. Dictated by: Yosi Weir M.D. on 10/26/2024 at 20:15 Approved by: Yosi Weir M.D. on 10/26/2024 at 20:21
== END 2024-10-26 21:31 | disposition home or self-care (01) ==
PROVIDERS: Emergency Medicine; Emergency Provider Student in an Organized Health Care Education/Training Program; PCP Student in an Organized Health Care Education/Training Program
DX: R10.9 Unspecified abdominal pain (principal); E87.6 Hypokalemia; R07.9 Chest pain, unspecified; R19.7 Diarrhea, unspecified
CPT/HCPCS: 36415; 71045; 74176; 80053; 81003; 82550; 83690; 83735; 83880; 84484; 85025; 85610; 85730; 93005; 99284

== ENCOUNTER → 2024-11-22 15:28 | Outpatient (CLI) | payer MEDICARE, OTHER, SELFPAY ==
[2021-11-14 15:05] VITALS: BMI 45.3
--- NOTE | 2024-11-22 | DI.MRI.S_ITS ---
PROCEDURE: MR BRAIN (IAC) WWO CON INDICATIONS: HEARING LOSS TECHNIQUE: Noncontrast sagittal T1 spin echo, axial FLAIR, axial gradient echo, axial diffusion and ADC through the brain. Axial thin-slice 3D CISS, coronal TruFISP, axial T1 spin echo with fat saturation through the internal auditory canals. After the administration of contrast, thin slice axial and coronal T1 spin echo with fat saturation through the internal auditory canals, and axial and coronal and sagittal T1 spin echo with fat saturation through the brain. COMPARISON: None. FINDINGS: Image quality: Excellent. Cerebellopontine angles: No cerebellopontine angle masses. Inner ear structures appear normally formed. No suspicious enhancement in the internal auditory canal or along the course of the 7th cranial nerve. CSF spaces: Ventricles are normal in size and shape. No extra-axial fluid collections. Basal cisterns are patent. Brain: No intracranial bleeds or mass effects. Walker-white matter interface is intact. No abnormal intracranial enhancement. Diffusion weighted images demonstrate no acute ischemic insults. Brainstem appears normal. Normal intravascular flow voids are present. Moderate multifocal white matter ischemic change Skull and face: Calvarial marrow signal is normal. Orbits appear normal. Sinuses: Sinuses and mastoids are clear. IMPRESSION: Normal MR 7th and 8th cranial nerve complexes without vestibular schwannoma. Atrophy and multifocal white matter chronic ischemic change without infarct, hemorrhage or mass lesion Approved by: Sonny Guillen M.D. on 11/22/2024 at 19:49
== END ==
PROVIDERS: PCP Family Medicine; Referring Provider Otolaryngology; Visit Provider Otolaryngology
DX: H90.3 Sensorineural hearing loss, bilateral (principal); H93.299 Other abnormal auditory perceptions, unspecified ear
CPT/HCPCS: 70553; A9579

== ENCOUNTER 2025-03-29 10:13 | Emergency (ER) | payer MEDICARE, OTHER, SELFPAY ==
[2021-11-14 15:05] VITALS: BMI 45.3
[2025-03-29] VITALS (9 sets, daily range): BP systolic 134–189; BP diastolic 60–91; PULSE 51–60; RESP 18–19; TEMP 36.2; O2SAT 93–98; BMI 44.6
--- NOTE | 2025-03-29 10:42 | EKG_ITS ---
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
--- NOTE | 2025-03-29 12:08 | DI.CT.S_ITS ---
PROCEDURE: CT ABDOMEN PELVIS W CON INDICATIONS: LLQ abdominal pain TECHNIQUE: After the administration of intravenous contrast, axial sections acquired from the lung bases to the pubic symphysis. Coronal and sagittal reformats were performed. For radiation dose reduction, the following was used: automated exposure control, adjustment of mA and/or kV according to patient size. COMPARISON: [facility], CT, CT ABDOMEN PELVIS WO CON, 10/26/2024, 19:46. [facility], CT, CT ABDOMEN PELVIS W CON, 04/25/2021, 17:20. FINDINGS: Image quality: Diagnostic. Lower Chest: No significant findings. ABDOMEN: Liver: No solid mass. Moderate hepatic steatosis. Focal calcification again seen in lateral periphery of right hepatic lobe. Gallbladder: Gallbladder is surgically absent. Biliary ducts: No biliary dilation. Pancreas: No ductal dilation. Spleen: Size is within normal limits. Adrenal Glands: No adrenal nodules. Kidneys and Ureters: No hydronephrosis. No solid mass. No complex renal cystic lesion which requires follow up. Stomach and Bowel: Normal colonic caliber, without significant wall thickening. No abscess collection. Appendix is not definitively seen. No focal inflammatory changes are seen in right lower quadrant abdomen. A few colonic diverticuli are again noted without focal wall thickening or mesenteric fat stranding. No abscess collection. Peritoneum: No abnormal intraperitoneal fluid. No free air. Ventral Wall: No significant ventral hernia. Abdominal Nodes: No retroperitoneal or mesenteric adenopathy by size criteria. Vessels: Aorta and inferior vena cava are normal in size. PELVIS: Pelvic Organs: Unremarkable. Bladder: No bladder wall thickening, accounting for underdistention. Pelvic Nodes: No enlarged lymph nodes. Miscellaneous: No inguinal hernias are seen. Bones: No aggressive osseous abnormality. IMPRESSION: 1. No bowel obstruction or abnormal bowel wall thickening. Mild colonic diverticulosis without CT evidence of acute diverticulitis. No secondary CT signs of acute appendicitis. No free fluid or free air. 2. Other chronic findings are unchanged from prior study. Dictated by: Yosi Weir M.D. on 03/29/2025 at 13:18 Approved by: Yosi Weir M.D. on 03/29/2025 at 13:22
[2025-03-29 12:10] LABS: Add Manual Diff / Slide Review NO; Hematocrit 40.4 % (36-46); Hemoglobin 13.6 g/dL (12.0-16.0); Lymphocytes Absolute Auto 1200 /uL (1100-4500); Mean Corpuscular HGB Conc 33.7 % (30-36); Mean Corpuscular Hemoglobin 29.3 PG (26-34); Mean Corpuscular Volume 87.2 fL (80-100); Platelet Count 181 X10^3/uL (150-400)
[2025-03-29] MEDS: methylPREDNISolone succ 125 MG/2 ML VIAL IV (12:20)
[2025-03-29] MEDS: diphenhydrAMINE 50 MG/ML VIAL IV (12:20)
[2025-03-29 12:23] LABS: Alanine Aminotransferase 26 IU/L (<35); Albumin 4.2 g/dL (3.5-5.0); Albumin Globulin Ratio 1.4 (1.0-2.8); Alkaline Phosphatase 91 U/L (38-126); Blood Urea Nitrogen 8 mg/dL (7-17); Calcium 9.0 mg/dL (8.4-10.2); Carbon Dioxide 27 mmol/L (22-32); Chloride 104 mmol/L (98-107); Estimated Glomerular Filt Rate > 60 mL/min (>60); Globulin 2.9 g/dL (1.7-4.1); Glucose 103 mg/dL (70-99); HEMOLYSIS < 15 (0-50); Lipase 69 U/L (23-300); Potassium 3.1 mmol/L (3.4-5.1); Sodium 140 mmol/L (137-145); Total Protein 7.1 g/dL (6.3-8.2)
--- NOTE | 2025-03-29 14:17 | ED.ABDPAIN ---
HPI - Abdominal Pain General Chief Complaint: Abdominal Pain Stated Complaint: abdominal pain Time Seen by Provider: 03/29/25 14:16 Source: patient, RN notes reviewed and old records reviewed Mode of arrival: Family Vehicle Limitations: no limitations History of Present Illness HPI narrative: 70-year-old female history of GERD, diabetes, restless leg, hypertension, dyslipidemia, prior embolism on anticoagulation with Eliquis with complaint of bilateral lower abdominal pain starting on Thursday 2 she has a history of hernia, prior appendectomy and cholecystectomy. Patient states she will have episodes intermittently sometimes for several days where she has pain on her left side that is been slowly resolves. States this 1 has been lasting a little bit longer. Started Thursday with nausea and then left upper quadrant pain. She denies any flank or back pain. She has had nausea intermittently particularly on Thursday and Thursday improved now. She has a little bit of mild diarrhea but states that is her baseline she relates this likely to having prior cholecystectomy. No bright red blood or black stools. No dysuria urgency or frequency. No rash or skin changes. Patient states she takes pantoprazole, Jardiance, Requip, Eliquis medication for hypertension and dyslipidemia. She notes prior cholecystectomy, appendectomy, hysterectomy has 1 ovary still present. No tobacco, alcohol or recreational drugs. She states her pain is actually improving after she leaves steroids and Solu-Medrol for premedication for CT. She does note she had a positive Cologuard in his being scheduled for a colonoscopy by her primary care. Related Data Home Medications ?Medication ?Instructions ?Recorded ?Confirmed atorvastatin 40 mg tablet 40 mg PO DAILY 09/22/19 12/02/23 fluticasone propionate 230 1 inh inhalation BID 09/22/19 12/02/23 mcg-salmeterol 21 mcg/actuation HFA inhaler (Advair HFA) hydrochlorothiazide 25 mg tablet 25 mg PO DAILY 09/22/19 12/02/23 losartan 100 mg tablet 100 mg PO DAILY 09/22/19 12/02/23 pantoprazole 40 mg tablet,delayed 40 mg PO BID 09/22/19 12/02/23 release potassium chloride 20 mEq 20 meq PO BID 09/22/19 12/02/23 tablet,extended release(part/cryst) ropinirole 1 mg tablet 2 mg PO ONCE HS 09/22/19 12/02/23 sertraline 100 mg tablet 200 mg PO DAILY 09/22/19 12/02/23 ropinirole 1 mg tablet 2 mg PO DAILY 11/14/21 12/02/23 acyclovir 400 mg tablet 400 mg PO DAILY PRN 12/02/23 12/02/23 aspirin 81 mg chewable tablet 81 mg PO DAILY 12/02/23 12/02/23 (Cosme Chewable Low Dose Aspirin) celecoxib 200 mg capsule (Celebrex) 200 mg PO DAILY 12/02/23 12/02/23 cholecalciferol (vitamin D3) 250 250 mcg PO DAILY 12/02/23 12/02/23 mcg (10,000 unit) capsule diltiazem HCl 120 mg 120 mg PO BID 12/02/23 12/02/23 capsule,extended release 12 hr ezetimibe 10 mg tablet 10 mg PO DAILY 12/02/23 12/02/23 furosemide 20 mg tablet 20 mg PO DAILY 12/02/23 12/02/23 ibuprofen 800 mg tablet 800 mg PO TID PRN 12/02/23 12/02/23 multivitamin (Daily Multi-Vitamin 1 tab PO DAILY 12/02/23 12/02/23 tablet) Previous Rx's ?Medication ?Instructions ?Recorded apixaban 5 mg tablet (Eliquis) 10 mg (2 x 5 mg) PO BID 90 days 11/15/21 #360 tabs hydrocodone 5 mg-acetaminophen 325 1 tab PO Q6H PRN pain #10 tabs 03/29/25 mg tablet Allergies Allergy/AdvReac Type Severity Reaction Status Date / Time cimetidine (CIMETIDINE) Allergy Mild HIVES Verified 03/29/25 10:43 Iodinated Contrast Media AdvReac Severe Difficulty Verified 03/29/25 10:43 Breathing Review of Systems Review of Systems ROS Unobtainable: All systems reviewed & are unremarkable except as noted in HPI and below Patient History Medical History COPD (chronic obstructive pulmonary disease) Restless leg syndrome Asthma Hyperlipidemia Hypertension Surgical History Hx of tonsillectomy Hx of appendectomy History of salpingectomy History of right oophorectomy Hx of hysterectomy Status post cholecystectomy Social History household members: spouse Smoking Status: Former smoker Smoking Status: Former smoker tobacco type: cigarettes alcohol intake frequency: holidays/special occasions only Exam Narrative Exam Narrative: GENERAL: Alert and oriented x three, female in mild distress HEENT: Head normocephalic, atraumatic, EOMI, pupils reactive, face symmetric, moist mucous membranes NECK: Supple, full range of motion CARDIOVASCULAR: Regular rate and rhythm without murmurs, rubs or gallops. RESPIRATORY: Breath sounds equal bilaterally, no wheezes rales or rhonchi. ABDOMEN: Soft, positive for left upper quadrant tenderness. Normoactive bowel sounds all 4 quadrants. No guarding or rebound, rigidity, no mass, no palpable hernia. Rash or skin changes. : No CVA tenderness EXTREMITIES: Normal range of motion, no clubbing or edema. Neurovascularly intact NEUROLOGICAL: Cranial nerves II through XII grossly intact. Moving all extremities SKIN: Warm, dry, no petechiae, no rashes or lesions. Initial Vital Signs Initial Vital Signs: Vital Signs Temperature 97.2 F L 03/29/25 10:43 Pulse Rate 56 L 03/29/25 10:43 Respiratory Rate 18 03/29/25 10:43 Blood Pressure 189/85 H 03/29/25 10:43 Pulse Oximetry 95 03/29/25 10:43 Oxygen Delivery Method Room Air 03/29/25 10:43 Course Orders Ordered: ED Orders 03/29/25 10:42 EKG-12 Lead Stat 03/29/25 11:55 Complete Blood Count AUTO DIFF Stat Comprehensive Metabolic Panel Stat Lipase Stat 03/29/25 12:08 CT abdomen pelvis w con Stat Discontinued Medications Diphenhydramine HCl (Diphenhydramine 50 Mg/Ml Vial) 50 mg IV NOW ONE Stop: 03/29/25 12:15 Last Admin: 03/29/25 12:20 Dose: 50 mg Documented By: Methylprednisolone (Methylprednisolone Succ 125 Mg/2 Ml Vial) 125 mg IV NOW ONE Stop: 03/29/25 12:15 Last Admin: 03/29/25 12:20 Dose: 125 mg Documented By: Ondansetron HCl (Ondansetron 4 Mg/2 Ml Inj) 4 mg IV NOW PRN PRN Reason: Nausea And Vomiting Ondansetron HCl (Ondansetron 4 Mg Odt) 4 mg PO NOW PRN PRN Reason: Nausea And Vomiting Potassium Chloride (Potassium Chloride 20 Meq Tab) 40 meq PO NOW ONE Stop: 03/29/25 14:21 Last Admin: 03/29/25 14:28 Dose: 40 meq Documented By: Vital Signs Vital signs: Vital Signs - 8 hr 03/29/25 12:05 03/29/25 12:06 03/29/25 12:06 Pulse Rate 59 L 59 L Respiratory Rate Blood Pressure 159/72 H Pulse Oximetry 95 95 Oxygen Delivery Method 03/29/25 12:30 03/29/25 12:30 03/29/25 13:55 Pulse Rate 51 L Respiratory Rate Blood Pressure 163/91 H Pulse Oximetry 94 94 Oxygen Delivery Method Room Air 03/29/25 13:56 03/29/25 13:56 03/29/25 14:00 Pulse Rate 53 L 53 L Respiratory Rate Blood Pressure 134/60 Pulse Oximetry 94 93 Oxygen Delivery Method 03/29/25 14:00 03/29/25 14:30 03/29/25 14:31 Pulse Rate 60 58 L Respiratory Rate Blood Pressure 135/65 Pulse Oximetry 94 94 Oxygen Delivery Method 03/29/25 14:31 Pulse Rate Respiratory Rate 19 Blood Pressure 145/62 H Pulse Oximetry 98 Oxygen Delivery Method Room Air MDM - Abdominal Pain Lab Data 03/29/25 11:55 03/29/25 11:55 Labs: Lab Results 03/29/25 Range/Units 11:55 WBC 4.8 (4.5-11.0) X10^3/uL RBC 4.63 (4.0-5.2) X10^6/uL Hgb 13.6 (12.0-16.0) g/dL Hct 40.4 (36-46) % MCV 87.2 (80-100) fL MCH 29.3 (26-34) PG MCHC 33.7 (30-36) % RDW 15.5 H (11.6-14.8) % Plt Count 181 (150-400) X10^3/uL Neut % (Auto) 66.6 (50-75) % Lymph % (Auto) 25.2 (25-40) % Bennett % (Auto) 6.5 (3-14) % Eos % (Auto) 1.2 L (2-4) % Baso % (Auto) 0.5 (0-2) % Neut # (Auto) 3200 (5641-9806) /uL Lymph # (Auto) 1200 (9722-5115) /uL Bennett # (Auto) 300 (0-900) /uL Eos # (Auto) 100 (0-450) /uL Baso # (Auto) 0 (0-100) /uL Sodium 140 (137-145) mmol/L Potassium 3.1 L (3.4-5.1) mmol/L Chloride 104 (98-107) mmol/L Carbon Dioxide 27 (22-32) mmol/L BUN 8 (7-17) mg/dL Creatinine 0.81 (0.52-1.04) mg/dL Estimated GFR > 60 (>60) mL/min BUN/Creatinine Ratio 9.9 (6-22) Glucose 103 H (70-99) mg/dL Calcium 9.0 (8.4-10.2) mg/dL Total Bilirubin 0.5 (0.2-1.3) mg/dL AST 25 (14-36) IU/L ALT 26 (<35) IU/L Alkaline Phosphatase 91 (38-126) U/L Total Protein 7.1 (6.3-8.2) g/dL Albumin 4.2 (3.5-5.0) g/dL Globulin 2.9 (1.7-4.1) g/dL Albumin/Globulin Ratio 1.4 (1.0-2.8) Lipase 69 (23-300) U/L Point of care testing: Urine Dip Bedside Urine Glucose 100 mg/dl Bedside Urine Bilirubin - Negative Bedside Urine Ketone - Negative Urine Specific [place] 1.010 Bedside Urine Occult Blood - Negative Bedside Urine pH 6.0 Bedside Urine Protein - Negative Bedside Urine Urobilinogen - Negative Bedside Urine Nitrite - Negative Bedside Urine Leukocytes - Negative Esterase ECG Data Attestation: I personally reviewed and interpreted this ECG as follows: Prior ECG tracings: available for review Interpretation: Sinus bradycardia rate of 53 [place] 182 QRS 88 QTC of 431 nonspecific change. Patient has prior EKG from 10/26/2024 nonspecific change. [facility] Narrative Medical decision making narrative: EKG shows sinus bradycardia rate of 50 nonspecific change Labs show normal white count, hemoglobin platelets, chemistries show potassium of 3.1 replaced orally, BUN electrolytes are otherwise appropriate glucose is 103 LFTs are negative bilirubin, AST ALT and lipase are normal. Point of care urine negative for acute change to show glucose. CT abdomen pelvis shows some moderate hepatic steatosis focal calcification again seen lateral peripheral right hepatic lobe. Gallbladder surgically absent. Impression shows no bowel obstruction or abdominal bowel wall thickening mild colonic diverticulosis without CT evidence of acute diverticulitis no secondary CT signs of acute appendicitis, no free fluid or free air. Other chronic findings are unchanged from prior study. Patient did not have Benadryl and Solu-Medrol as premedication for CT she has had sounds like airway issues when she has had contrast in the past. Did also have oral potassium to replace her hypokalemia. 70-year-old female with episodic left upper quadrant pain does note she had a recent positive Cologuard, labs show slightly low potassium but she notes chronic diarrhea. CT imaging and labs otherwise do not show any clear sign. Patient states pain is somewhat improved at this time is tolerating orals. Plan for outpatient colonoscopy which I think would be appropriate next step. Discussed return precautions all questions answered. Discharge Plan Departure Patient Disposition: Home Clinical Impression: Hypokalemia, Left sided abdominal pain Instructions: DI for Abdominal Pain-Adult Activity Restrictions/Additional Instructions: Follow up with your physician, I think it would be appropriate to follow up with a colonoscopy not just because your Cologuard because your intermittent abdominal pain. Prescription for [place] was sent to the [facility] pharmacy. This medication can make you sleepy do not drive, perform hazardous activities or make any major decisions while taking it. This medication will make you constipated please take a stool softener once to twice daily until stools are soft and regular. Please return for fevers, new or worsening abdominal back or flank pain, any passing out, persistent vomiting, black or bloody stools, lightheadedness or passing out or other new or concerning changes. Prescriptions: New hydrocodone-acetaminophen 5-325 mg tablet 1 tab PO Q6H PRN (Reason: pain) Qty: 10 0RF No Action acyclovir 400 mg tablet 400 mg PO DAILY PRN aspirin [Cosme Chewable Aspirin] 81 mg tablet,chewable 81 mg PO DAILY celecoxib [Celebrex] 200 mg capsule 200 mg PO DAILY diltiazem HCl 120 mg capsule,extended release 12 hr 120 mg PO BID ezetimibe 10 mg tablet 10 mg PO DAILY furosemide 20 mg tablet 20 mg PO DAILY ibuprofen 800 mg tablet 800 mg PO TID PRN multivitamin [Daily Multi-Vitamin] Tablet 1 tab PO DAILY cholecalciferol (vitamin D3) 250 mcg (10,000 unit) capsule 250 mcg PO DAILY atorvastatin 40 mg tablet 40 mg PO DAILY ropinirole 1 mg tablet 2 mg PO ONCE HS sertraline 100 mg tablet 200 mg PO DAILY potassium chloride 20 mEq tablet,ER particles/crystals 20 meq PO BID pantoprazole 40 mg tablet,delayed release (DR/EC) 40 mg PO BID Rx Instructions: takes before breakfast and before dinner at 1700 hydrochlorothiazide 25 mg tablet 25 mg PO DAILY losartan 100 mg tablet 100 mg PO DAILY Advair HFA 230-21 mcg/actuation HFA aerosol inhaler 1 inh INHALATION BID ropinirole 1 mg Tablet 2 mg PO DAILY Eliquis 5 mg Tablet 10 mg PO BID 90 Days Qty: 360 4RF Rx Instructions: Take, by mouth, apixaban (Eliquis) 10 milligrams, every 12 hours, for 7 days, starting from November 14, 2021. After 7 days, take, by mouth, apixaban (Eliquis) 5 milligrams, every 12 hours. Referrals: Jamaal Montana MD [Primary Care Provider, Family Practice] Stand Alone Forms: Patient Portal/API
[2025-03-29] MEDS: POTASSIUM CHLORIDE 20 MEQ TAB 40 MEQ PO (14:28)
== END 2025-03-29 14:51 | disposition home or self-care (01) ==
PROVIDERS: Emergency Provider Emergency Medicine; PCP Family Medicine
DX: E87.6 Hypokalemia (principal); R10.12 Left upper quadrant pain
CPT/HCPCS: 36415; 74177; 80053; 81003; 83690; 85025; 93005; 96374; 96375; 99284; J1200; J2919

== ENCOUNTER → 2025-05-08 11:44 | Outpatient (CLI) | payer MEDICARE, OTHER, SELFPAY ==
[2021-11-14 15:05] VITALS: BMI 45.3
== END ==
LOC: PHYS 11:46
PROVIDERS: PCP Family Medicine; Referring Provider Orthopaedic Surgery; Visit Provider Orthopaedic Surgery
DX: G56.03 Carpal tunnel syndrome, bilateral upper limbs (principal)
CPT/HCPCS: 95886; 95911

== ENCOUNTER 2025-06-30 11:40 | Day surgery (SDC) | payer MEDICARE, OTHER, SELFPAY ==
[2021-11-14 15:05] VITALS: BMI 45.3
[2025-06-28 10:39] VITALS: BMI 44.6
--- NOTE | 2025-06-30 | PATH_ITS ---
[facility] Accession Number: [id number] No. of containers..05 Tissue . 01 Material submitted: . PART A: colon - COLON, ASCENDING POLYPS PART B: colon - COLON, CECAL POLYP PART C: colon - COLON, TRANSVERSE POLYP PART D: colon - COLON, TRANSVERSE POLYP #2 PART E: colon - COLON, DESCENDING POLYP . 01 Diagnosis: Part A: COLON, ASCENDING POLYPS: Tubular adenomas. . Part B: COLON, CECAL POLYP: Tubular adenoma. . Part C: COLON, TRANSVERSE POLYP: Tubular adenoma. . Part D: COLON, TRANSVERSE POLYP #2: Sessile serrated adenoma. . Part E: COLON, DESCENDING POLYP: Tubular adenoma. [facility] 07/06/2025 1315 Local . 01 Electronically signed: . Braden Alcala MD, Pathologist NPI- [id number] . 01 Gross description: . A. Received in formalin with two identifiers and ascending polyps are three robertson-brown soft tissue fragments, 0.1-0.5 cm in greatest dimension, submitted entirely in A1. . B. Received in formalin with two identifiers and cecal polyp are five friable robertson soft tissue fragments, 0.3-0.4 cm in greatest dimension, submitted entirely in B1. . C. Received in formalin with two identifiers and transverse colon polyp are three friable robertson soft tissue fragments, 0.3-0.5 cm in greatest dimension, submitted entirely in C1. . D. Received in formalin with two identifiers and transverse colon polyp #2 is a robertson friable soft tissue fragment, 0.8 cm in greatest dimension, submitted entirely in D1. . E. Received in formalin with two identifiers and descending colon polyp is a single robertson to robertson-brown soft tissue fragment, 1.0 cm in greatest dimension, submitted entirely in E1. ([id number]) /MRV 07/06/2025 1315 Local . 01 Pathologist provided ICD-10: D12.0, D12.2, D12.3, D12.4 . 01 CPT . 743551, 415505, 490210, [id number], [id number] Specimen Comment: A courtesy copy of this report has been sent to [phone] Performed at: [address] [id number] MD Braden Alcala MD Phone: [phone]
[2025-06-30 12:08] VITALS: BP 152/75; PULSE 58; RESP 24; TEMP 36.5; O2SAT 94
[2025-06-30] MEDS: LACTATED RINGERS 1,000 ML 42 ML IV (12:12)
--- NOTE | 2025-06-30 12:13 | PM.HP.IH.1 ---
History of Present Illness History of Present Illness Date Patient Seen: 06/30/25 Time Patient Seen: 12:13 Chief complaint: Colonoscopy Narrative: Leslie is a 70-year-old woman who had a positive Cologuard test. See the office note from March for details. [facility] Medical History (Updated 06/28/25 @ 10:39 by Lisa Enciso RN) REINA on CPAP GERD (gastroesophageal reflux disease) Pulmonary embolism COPD (chronic obstructive pulmonary disease) Restless leg syndrome Asthma Hyperlipidemia Hypertension Surgical History Hx of tonsillectomy Hx of appendectomy History of salpingectomy History of right oophorectomy Hx of hysterectomy Status post cholecystectomy Social History household members: spouse Smoking Status: Former smoker Meds Home Medications and Allergies Home Medications ?Medication ?Instructions ?Recorded ?Confirmed ?Type atorvastatin 40 mg tablet 40 mg PO DAILY 09/22/19 04/14/25 History fluticasone propionate 230 1 inh inhalation BID 09/22/19 04/14/25 History mcg-salmeterol 21 mcg/actuation HFA inhaler (Advair HFA) hydrochlorothiazide 25 mg tablet 25 mg PO DAILY 09/22/19 04/14/25 History losartan 100 mg tablet 100 mg PO DAILY 09/22/19 04/14/25 History pantoprazole 40 mg tablet,delayed 40 mg PO BID 09/22/19 04/14/25 History release potassium chloride 20 mEq 20 meq PO BID 09/22/19 04/14/25 History tablet,extended release(part/cryst) ropinirole 1 mg tablet 2 mg PO ONCE HS 09/22/19 04/14/25 History sertraline 100 mg tablet 200 mg PO DAILY 09/22/19 04/14/25 History ropinirole 1 mg tablet 2 mg PO DAILY 11/14/21 04/14/25 History apixaban 5 mg tablet (Eliquis) 10 mg (2 x 5 mg) PO BID 90 days 11/15/21 04/14/25 Rx #360 tabs acyclovir 400 mg tablet 400 mg PO DAILY PRN 12/02/23 04/14/25 History aspirin 81 mg chewable tablet 81 mg PO DAILY 12/02/23 04/14/25 History (Cosme Chewable Low Dose Aspirin) celecoxib 200 mg capsule (Celebrex) 200 mg PO DAILY 12/02/23 04/14/25 History cholecalciferol (vitamin D3) 250 250 mcg PO DAILY 12/02/23 04/14/25 History mcg (10,000 unit) capsule diltiazem HCl 120 mg 120 mg PO BID 12/02/23 04/14/25 History capsule,extended release 12 hr ezetimibe 10 mg tablet 10 mg PO DAILY 12/02/23 04/14/25 History furosemide 20 mg tablet 20 mg PO DAILY 12/02/23 04/14/25 History ibuprofen 800 mg tablet 800 mg PO TID PRN 12/02/23 04/14/25 History multivitamin (Daily Multi-Vitamin 1 tab PO DAILY 12/02/23 04/14/25 History tablet) hydrocodone 5 mg-acetaminophen 325 1 tab PO Q6H PRN pain #10 tabs 03/29/25 04/14/25 Rx mg tablet sodium,potassium,mag sulfates 17.5 See Rx Instructions PO .COMPLEX 04/14/25 Rx gram-3.13 gram-1.6 gram oral soln #354 mL (Suprep Bowel Prep Kit) Allergies Allergy/AdvReac Type Severity Reaction Status Date / Time cimetidine (CIMETIDINE) Allergy Mild HIVES Verified 04/14/25 14:25 Iodinated Contrast Media AdvReac Severe Difficulty Verified 04/14/25 14:25 Breathing Exam Vital Signs (past 8 hours): - 06/30/25 12:08 Temperature 97.7 F Pulse Rate 58 L Respiratory Rate 24 Blood Pressure 152/75 H Pulse Oximetry 94 Oxygen Delivery Method Room Air Oxygen Delivery Method Room Air Const General: No acute distress Assessment & Plan Assessment and plan (1) Positive colorectal cancer screening using Cologuard test: Status: Acute Plan Colonoscopy for a positive Cologuard test Time-Based Coding :: [TOTAL MINUTES] spent with patient and on the chart (including review of chart, obtaining history, exam, reviewing outside data, placing orders, documenting exam and treatment plan, and counseling patient) on [DATE]. [facility] Consultant Document charge(s): No
--- NOTE | 2025-06-30 12:51 | P.OP.COLON_ITS ---
Operative Date/Time/Diagnoses Date of procedure: 06/30/25 Time of procedure: 12:52 Pre-op diagnosis: Positive Cologuard test Post-op diagnosis: same Procedure & Clinicians Study performed: Colonoscopy Same procedure(s) as scheduled: Yes Surgeon: Maycol Rizo Anesthesia Type: MAC +/- Procedure Notes Procedure in detail: Surgeon: Maycol Rizo MD Anesthesia: Saloni Kelley [employer] Procedure: The patient was brought to the endoscopy suite, placed in left lateral decubitus position. The patient was connected to monitoring devices. A time-out was performed. Sedation was administered. Once the patient was adequately sedated, a digital rectal exam was performed. Above normal sphincter tone was noted. The scope was then inserted and advanced to the cecum where the appendiceal orifice was identified and photographed. The scope was then slowly withdrawn over greater than 6 minutes. The mucosa was thoroughly inspected. There was a 5 mm polyp in the cecum removed with a cold snare. There were 3 polyps in the ascending colon ranging from 2-5 cm removed with a cold snare and sent together. There was a 5 mm polyp in the transverse colon removed with a cold snare. There was a 1 cm polyp in the transverse colon removed with a cold snare. The scope was retroflexed in the rectum. No other abnormalities were found. The scope was straightened and removed. The patient was awakened and brought to recovery. Scope withdrawal time: 20 minutes Sedation time: 30 minutes Findings: Multiple polyps as detailed above, above-normal sphincter tone Estimated Blood Loss: 5 Complications: none Post-procedure Disposition: PACU
[2025-06-30 12:52] VITALS: BP 120/56; PULSE 54; RESP 17; TEMP 36.7; O2SAT 97
[2025-06-30 12:59] VITALS: BP 130/64; PULSE 51; RESP 20; TEMP 36.7; O2SAT 98
== END 2025-06-30 13:20 | disposition home or self-care (01) ==
PROVIDERS: PCP Family Medicine; Referring Provider Surgery; Visit Provider Surgery
PROC: 0DJD8ZZ Inspection of Lower Intestinal Tract, Via Natural or Artificial Opening Endoscopic (ICD-10-PCS; CPT 45378; principal; 2025-06-30 12:45)
DX: Z12.11 Encounter for screening for malignant neoplasm of colon (principal); R19.5 Other fecal abnormalities; Z87.891 Personal history of nicotine dependence; D12.2 Benign neoplasm of ascending colon; D12.0 Benign neoplasm of cecum; D12.3 Benign neoplasm of transverse colon; D12.4 Benign neoplasm of descending colon
CPT/HCPCS: 45385; 82962; J2704; J7120